=== PATIENT | male | born 1965 | race Caucasian/White ===

== ENCOUNTER 2020-12-19 04:15 | Observation (INO) ==
[2020-12-19] MEDS ORDERED: ONDANSETRON INJ 2 MG/ML 2 ML VIAL ONE ×2 (04:41→10:53)
[2020-12-19] MEDS ORDERED: MoRPHine SULFATE 4 MG/ML 1 ML CARP\\VIAL IV STA (04:43)
[2020-12-19] MEDS ORDERED: SODIUM CHLORIDE 0.9% 1000ML 1,000 ML IV STA (04:43)
[2020-12-19] MEDS ORDERED: KETOROLAC 30 MG/ML VIAL IV ONE (04:43)
--- NOTE | 2020-12-19 04:50 | Emergency Department Note ---
Impression & Plan Colic, ureteral, ERASTO (acute kidney injury), Hyperglycemia due to diabetes mellitus Admit to the [facility] ED Provider Note NAME: GIANFRANCO GARZA AGE: 55 SEX: M ARRIVES VIA: Walk-In INFORMANT: Patient and his ED PROVIDER(S): Lorie Cazares DO CHIEF COMPLAINT: Left flank pain PLAN: Disposition: Admit to the [facility] Condition: Stable MEDICAL DECISION MAKING: This is a 55-year-old male patient who presents to the emergency department with severe left flank pain. The patient underwent lithotripsy 2 days ago. The pain has worsened and now he has uncontrollable nausea, vomiting and sweating. KUB shows evidence of bilateral renal stones with a left-sided ureteral stone that most likely is the culprit of the pain that he is suffering. Patient has evidence of ERASTO on laboratory studies and is significantly hyperglycemic with an elevated BHA. Patient received IV analgesia here in the emergency department and IV fluids. [facility] for [facility]. Triage Nursing notes reviewed and agree with them. Additional history obtained from is at the bedside Prior medical records reviewed Vital Signs: reviewed and remarkable for hypertension Differential diagnosis: Obstructive uropathy; ureteral colic; acute kidney injury; UTI ER treatment provided: IV normal saline IV morphine IV Zofran IV Toradol Diagnostics interpreted by me: Laboratory studies: See below Imaging studies: As per my interpretation KUB: There are still obvious stones in both kidneys. There appears to be stones within the left ureter. HPI: 55/M arrives for evaluation of left flank pain. The patient underwent lithotripsy 2 days ago and has had intermittent pain that has now become more constant and is associated with significant vomiting. ROS: See above HPI for pertinent positives & negatives. A total of 10 systems reviewed and were otherwise negative. PAST MEDICAL HISTORY:See Below PAST SURGICAL HISTORY:See Below FAMILY HISTORY:See Below SOCIAL HISTORY:See Below HOME MEDICATIONS:See list ALLERGIES:See list VITALS:See Below PHYSICAL EXAMINATION: HEENT: Head - normocephalic and atraumatic Pupils are equal, round, and reactive to light. Extraocular eye muscles are intact, and sclera are anic teric. Nose - moist nasal mucosa without discharge. Mouth - moist buccal mucosa. Oropharynx is nonerythematous and there is no tonsillar exudate or edema noted. Neck: Supple; no cervical lymphadenopathy or nuchal rigidity Heart: Regular rate and rhythm. There is a normal S1 and S2 with no murmurs, clicks, or gallops appreciated. Lungs: Clear to auscultation bilaterally with no wheezes, rales, or rhonchi. Abdomen: Soft, completely nontender, nondistended, with good bowel sounds. There are no palpable pulsatile masses or hepatosplenomegaly. There is no guarding, rigidity, or rebound noted. Extremities: No evidence of cyanosis, clubbing, or edema. There are easily palpable peripheral pulses. Skin: Pale, warm and diaphoretic with good turgor and no rashes. ED COURSE: Times/Reassessments: 0435: The patient was evaluated in room A 10. A complete history and physical was performed. Previous electronic medical records were reviewed. An IV lock was initiated and labs were drawn as above. The patient was given 4 mg of IV morphine, 30 mg of IV Toradol, and 4 mg of IV Zofran. He was started on IV normal saline solution. Patient had a KUB performed. Patient remained comfortable after receiving the above IV analgesia. I reviewed the results of the laboratory studies and x-ray with the patient and his . I discussed the case with the [facility] hospitalist and they will evaluate for further management. Lorie Cazares DO Past Med/Surg History Medical History Bilateral kidney stones Cardiac murmur as child CKD (chronic kidney disease) Colon polyps Diabetes mellitus, type 2 GERD (gastroesophageal reflux disease) no longer on meds Hyperlipidemia Intervertebral lumbar disc disorder Malignant neoplasm of left kidney kidney removed > Dec 2019 > [facility] > no chemo MRSA infection hx of > 5 yrs ago > to face Obesity Pancreatic cyst just monitoring Vitamin D deficiency Surgical History H/O discectomy L4-5 S1 H/O hernia repair H/O vasectomy History of colonoscopy History of esophagogastroduodenoscopy (EGD) History of lithotripsy Family History Father Hypertension Stroke Heart disease Diabetes Mother Hypertension Heart disease Diabetes Grandmother (Paternal) Diabetes Social History Smoking Status: Never smoker Tobacco Type: Smokeless Tobacco (Dip or Chew) Second Hand Exposure: No; Hx Alcohol Use: No Hx Substance Use: No Preferred Language: Thai Communication Ability: Effective Pneumatic Drum Sander Required: No Beliefs That Will Affect Care: None marital status: Current Living Situation: Spouse current occupational status: retired Feels Safe at Home: Yes Assistive Devices: Glasses Allergies Allergies Allergy/AdvReac Type Severity Reaction Status Date / Time atorvastatin [From Lipitor] AdvReac Unknown leg Verified 12/17/20 06:29 cramping rosuvastatin [From Crestor] AdvReac Unknown leg Verified 12/17/20 06:29 cramping flu vaccine AdvReac Unknown Vomiting Uncoded 12/17/20 06:29 Home Meds Home Medications Medication Instructions Recorded Confirmed dulaglutide 1.5 mg/0.5 mL 3 mg SUBCUT WK 10/28/20 12/19/20 subcutaneous pen injector (Trulicity) hydrocodone 5 mg-acetaminophen 325 1 tab PO BID PRN 10/28/20 12/19/20 mg tablet metformin 500 mg tablet 500 mg PO PM 12/13/20 12/19/20 dapagliflozin 10 mg tablet 10 mg PO QAM 12/19/20 12/19/20 (Farxiga) ibuprofen 200 mg tablet 400 mg PO Q6H PRN 12/19/20 12/19/20 Results & Data (ED) Vital Signs Vital Signs - 24 hr 12/19/20 04:19 12/19/20 04:59 12/19/20 05:43 Temperature 36.5 C Temperature Source Temporal Artery Scan Pulse Rate 79 92 H Pulse Rate [Finger] 89 Pulse Rhythm [Finger] Pulse Strength [Finger] Respiratory Rate 16 16 Respiratory Effort / Characteristics Non-Labored Spontaneous Non-Labored Respiratory Depth Normal Normal Respiratory Pattern Regular Blood Pressure 161/79 H Blood Pressure [Right Arm] 125/71 Blood Pressure Mean 106 Blood Pressure Mean [Right Arm] 89 Blood Pressure Position Sitting Blood Pressure Position [Right Arm] Lying Pulse Oximetry 97 97 96 Oxygen Delivery Method Room Air Room Air Room Air Sepsis Recent Fever Within 48 Hours No Sepsis New/Unexplained Change in Mental Status N/A Sepsis Action Taken by Nursing No Action Required 12/19/20 06:36 12/19/20 08:00 12/19/20 10:00 Temperature Temperature Source Pulse Rate Pulse Rate [Finger] 71 70 74 Pulse Rhythm [Finger] Regular Regular Pulse Strength [Finger] Normal Normal Respiratory Rate 16 16 16 Respiratory Effort / Characteristics Non-Labored Non-Labored Respiratory Depth Normal Normal Respiratory Pattern Regular Regular Blood Pressure Blood Pressure [Right Arm] 120/71 120/71 105/51 L Blood Pressure Mean Blood Pressure Mean [Right Arm] 87 87 69 Blood Pressure Position Blood Pressure Position [Right Arm] Lying Lying Lying Pulse Oximetry 94 96 98 Oxygen Delivery Method Room Air Room Air Room Air Sepsis Recent Fever Within 48 Hours Sepsis New/Unexplained Change in Mental Status Sepsis Action Taken by Nursing 12/19/20 10:19 Temperature 36.2 C L Temperature Source Axillary Pulse Rate Pulse Rate [Finger] 70 Pulse Rhythm [Finger] Pulse Strength [Finger] Respiratory Rate 14 Respiratory Effort / Characteristics Respiratory Depth Normal Respiratory Pattern Regular Blood Pressure Blood Pressure [Right Arm] 99/64 L Blood Pressure Mean Blood Pressure Mean [Right Arm] 75 Blood Pressure Position Blood Pressure Position [Right Arm] Pulse Oximetry 96 Oxygen Delivery Method Room Air Sepsis Recent Fever Within 48 Hours Sepsis New/Unexplained Change in Mental Status Sepsis Action Taken by Nursing Laboratory Data Result diagrams: 12/19/20 04:43 12/19/20 13:51 Lab Results 12/19/20 12/19/20 12/19/20 Range/Units 04:43 04:43 05:45 WBC 15.01 H (4.8-10.8) K/uL RBC 5.69 (4.7-6.1) M/uL Hgb 16.4 (14.0-18.0) g/dL Hct 46.8 (42-52) % MCV 82.2 (80-100) fL MCH 28.8 (25-34) pg MCHC 35.0 (32-36) g/dL RDW Std Deviation 39.2 (36.4-46.3) fL RDW Coeff of Turner 13.1 (11.5-14.5) % Plt Count 248 (130-400) K/uL MPV 10.0 (7.4-10.4) fL Immature Gran % (Auto) 0.3 % Neut % (Auto) 83.7 % Lymph % (Auto) 9.6 % [place] % (Auto) 6.0 % Eos % (Auto) 0.3 % Baso % (Auto) 0.1 % Neut # (Auto) 12.57 H (1.4-6.5) K/uL Lymph # (Auto) 1.44 (1.2-3.4) K/uL [place] # (Auto) 0.90 H (0.11-0.59) K/uL Eos # (Auto) 0.04 (0-0.5) K/uL Baso # (Auto) 0.02 (0-0.2) K/uL Immature Gran # (Auto) 0.04 H (0.00-0.02) K/uL Sodium 134 L (136-145) mmol/L Potassium 3.5 (3.5-5.1) mmol/L Chloride 102 (98-107) mmol/L Carbon Dioxide 24 (21-32) mmol/L Anion Gap 8.0 (3-11) BUN 18 (7-18) mg/dl Creatinine 1.82 H (0.6-1.4) mg/dl Est Cr Clr Drug Dosing Not Reportable Est GFR ( Amer) 47.1 ml/min Est GFR (Non-Af Amer) 40.6 ml/min BUN/Creatinine Ratio 9.9 L (10-20) Glucose 356 H* (70-99) mg/dl POC Glucose (70-99) mg/dl Calcium 9.1 (8.5-10.1) mg/dl Total Bilirubin 0.8 (0.2-1) mg/dl AST 10 L (15-37) U/L ALT 33 (12-78) U/L Alkaline Phosphatase 119 H (45-117) U/L Total Protein 8.0 (6.4-8.2) gm/dl Albumin 4.0 (3.4-5.0) gm/dl Globulin 4.0 (2.5-4.0) gm/dl Albumin/Globulin Ratio 1.0 (0.9-2) Lipase 169 (73-393) U/L Beta-Hydroxybutyric Acd 2.83 H (0.2-2.81) mg/dl Urine Color Yellow Urine Appearance Cloudy A (Clear) Urine pH 5.0 (4.5-7.5) Ur Specific [place] 1.040 H (1.000-1.030) Urine Protein Trace H (Negative) Urine Glucose (UA) 3+ H (Negative) Urine Ketones 1+ H (Negative) Urine Blood 3+ H (Negative) Urine Nitrite Negative (Negative) Urine Bilirubin Negative (Negative) Urine Urobilinogen Negative (Negative) Ur Leukocyte Esterase Negative (Negative) Urine WBC (Auto) 1-5 (0-5) /hpf Urine RBC (Auto) >30 H (0-4) /hpf U Hyaline Cast (Auto) 0 (0-5) /lpf U Epithel Cells (Auto) 5-10 H (0-5) /lpf Urine Bacteria (Auto) Negative (Negative) Urine Yeast Not Reportable 12/19/20 Range/Units 08:16 WBC (4.8-10.8) K/uL RBC (4.7-6.1) M/uL Hgb (14.0-18.0) g/dL Hct (42-52) % MCV (80-100) fL MCH (25-34) pg MCHC (32-36) g/dL RDW Std Deviation (36.4-46.3) fL RDW Coeff of Turner (11.5-14.5) % Plt Count (130-400) K/uL MPV (7.4-10.4) fL Immature Gran % (Auto) % Neut % (Auto) % Lymph % (Auto) % [place] % (Auto) % Eos % (Auto) % Baso % (Auto) % Neut # (Auto) (1.4-6.5) K/uL Lymph # (Auto) (1.2-3.4) K/uL [place] # (Auto) (0.11-0.59) K/uL Eos # (Auto) (0-0.5) K/uL Baso # (Auto) (0-0.2) K/uL Immature Gran # (Auto) (0.00-0.02) K/uL Sodium (136-145) mmol/L Potassium (3.5-5.1) mmol/L Chloride (98-107) mmol/L Carbon Dioxide (21-32) mmol/L Anion Gap (3-11) BUN (7-18) mg/dl Creatinine (0.6-1.4) mg/dl Est Cr Clr Drug Dosing Est GFR ( Amer) ml/min Est GFR (Non-Af Amer) ml/min BUN/Creatinine Ratio (10-20) Glucose (70-99) mg/dl POC Glucose 192 H (70-99) mg/dl Calcium (8.5-10.1) mg/dl Total Bilirubin (0.2-1) mg/dl AST (15-37) U/L ALT (12-78) U/L Alkaline Phosphatase (45-117) U/L Total Protein (6.4-8.2) gm/dl Albumin (3.4-5.0) gm/dl Globulin (2.5-4.0) gm/dl Albumin/Globulin Ratio (0.9-2) Lipase (73-393) U/L Beta-Hydroxybutyric Acd (0.2-2.81) mg/dl Urine Color Urine Appearance (Clear) Urine pH (4.5-7.5) Ur Specific [place] (1.000-1.030) Urine Protein (Negative) Urine Glucose (UA) (Negative) Urine Ketones (Negative) Urine Blood (Negative) Urine Nitrite (Negative) Urine Bilirubin (Negative) Urine Urobilinogen (Negative) Ur Leukocyte Esterase (Negative) Urine WBC (Auto) (0-5) /hpf Urine RBC (Auto) (0-4) /hpf U Hyaline Cast (Auto) (0-5) /lpf U Epithel Cells (Auto) (0-5) /lpf Urine Bacteria (Auto) (Negative) Urine Yeast Administered Medications Enoxaparin Sodium (Enoxaparin Inj 40 Mg/0.4 Ml Syr) 40 mg SQ Q24H CHANDNI Stop: 01/18/21 12:59 Last Admin: 12/19/20 13:35 Dose: Not Given Documented by: [id number] Ciprofloxacin (Cipro / D5w) 400 mg in 200 mls @ 100 mls/hr IV Q12H CHANDNI; Protocol Stop: 12/29/20 08:40 Last Infusion: 12/19/20 16:09 Dose: 0 mls/hr Documented by: [id number] Admin: 12/19/20 13:54 Dose: 100 mls/hr Documented by: [id number] Insulin Aspart (Insulin Aspart 100 Units/Ml 3 Ml Pen) 0 units SC ACHS CHANDNI Stop: 01/18/21 16:29 Last Admin: 12/19/20 21:13 Dose: 8 units Documented by: [id number] Cosigned by: [id number] Admin: 12/19/20 17:18 Dose: 9 units Documented by: [id number] Cosigned by: [id number] Insulin Glargine (Insulin Glargine Solostar 100 Units/Ml 3 Ml Pen) 10 units SC BID CHANDNI Stop: 01/18/21 20:59 Last Admin: 12/19/20 21:10 Dose: 10 units Documented by: [id number] Cosigned by: [id number] Tamsulosin HCl (Tamsulosin Hcl 0.4 Mg Cap) 0.4 mg PO HS CHANDNI Stop: 01/18/21 20:59 Last Admin: 12/19/20 21:09 Dose: 0.4 mg Documented by: [id number] Discontinued Medications Diatrizoate Meglumine (Diatrizoate Meglumine 30% 100ml Vial) 100 ml INSTIL ONCE ONE Stop: 12/19/20 11:48 Last Admin: 12/19/20 11:48 Dose: 20 ml Documented by: [id number] Sodium Chloride (Nss 1000ml) 1,000 mls @ 999 mls/hr IV .Q1H1M STA Stop: 12/19/20 05:43 Last Infusion: 12/19/20 05:47 Dose: 0 mls/hr Documented by: [id number] Admin: 12/19/20 04:52 Dose: 999 mls/hr Documented by: [id number] Sodium Chloride (Nss) 500 mls @ 125 mls/hr IV .Q4H CHANDNI Stop: 01/18/21 06:59 Last Infusion: 12/19/20 16:09 Dose: 0 mls/hr Documented by: [id number] Admin: 12/19/20 07:21 Dose: 125 mls/hr Documented by: [id number] Sodium Chloride (Nss 1000ml) 1,000 mls @ 500 mls/hr IV .Q2H CHANDNI Stop: 01/18/21 08:40 Last Admin: 12/19/20 16:10 Dose: Not Given Documented by: [id number] Admin: 12/19/20 13:38 Dose: Not Given Documented by: [id number] Admin: 12/19/20 13:37 Dose: Not Given Documented by: [id number] Admin: 12/19/20 13:31 Dose: Not Given Documented by: [id number] Cefazolin Sodium (Ancef 2000mg) 2,000 mg in 15 mls @ 3.75 mls/min IV ONCE ONE Stop: 12/19/20 11:44 Last Admin: 12/19/20 11:41 Dose: 3.75 mls/min Documented by: [id number] Insulin Glargine (Insulin Glargine Solostar 100 Units/Ml 3 Ml Pen) 10 units SC DAILY CHANDNI Stop: 01/18/21 08:59 Last Admin: 12/19/20 13:30 Dose: Not Given Documented by: [id number] Insulin Human Regular (Novolin-R Insulin Per Unit Charge) 10 units IV NOW STA Stop: 12/19/20 07:01 Last Admin: 12/19/20 07:21 Dose: 10 units Documented by: [id number] Cosigned by: [id number] Insulin Human Regular (Insulin Human Regular) 0 units SC Q6 CHANDNI Stop: 01/18/21 11:29 Last Admin: 12/19/20 13:31 Dose: Not Given Documented by: [id number] Cosigned by: [id number] Ketorolac Tromethamine (Ketorolac 30 Mg/Ml Vial) 30 mg IV NOW ONE Stop: 12/19/20 04:44 Last Admin: 12/19/20 04:48 Dose: 30 mg Documented by: [id number] Morphine Sulfate (Morphine Sulfate 4 Mg/Ml 1 Ml Carp\Vial) 4 mg IV NOW STA Stop: 12/19/20 04:44 Last Admin: 12/19/20 04:48 Dose: 4 mg Documented by: [id number] Ondansetron HCl (Ondansetron Inj 2 Mg/Ml 2 Ml Vial) Confirm Administered Dose 4 mg .ROUTE .STK-MED ONE Stop: 12/19/20 04:42 Last Admin: 12/19/20 04:45 Dose: 4 mg Documented by: [id number] Tamsulosin HCl (Tamsulosin Hcl 0.4 Mg Cap) 0.4 mg PO NOW ONE Stop: 12/19/20 08:42 Last Admin: 12/19/20 17:06 Dose: 0.4 mg Documented by: [id number] Imaging Data Radiologist's Impression: Abdomen/Pelvis CT 12/19/20 08:38 CT abd pelvis wo con CLINICAL HISTORY: ? hydro/pyelo? TECHNIQUE: Helical axial images of the abdomen and pelvis were obtained. Automated dose lowering techniques and/or adjustment according to patient size were utilized for this exam. This exam was performed without intravenous contrast. COMPARISON: Comparison is made to CT abdomen and pelvis 12/08/2020 FINDINGS: Lower chest: No acute abnormality Liver: Unremarkable. No focal lesions are seen. Gallbladder and biliary tree: No calcified gallstones. Normal caliber wall. No intra- or extrahepatic biliary ductal dilation. Pancreas: Fatty replacement of the pancreas is seen. Spleen: Unremarkable. Adrenals: Unremarkable. Kidneys and ureters: Left hydronephrosis and hydroureter is seen. There is a 4 mm stone in the left proximal ureter. Nonobstructive stones are seen bilaterally. Bladder: Unremarkable. Layering stones are noted within the bladder. Reproductive organs: Prostatic calcifications are seen which may represent prior hemorrhage or granulomatous disease. Bowel: Unremarkable appearance of the bowel. The appendix is normal. Compared to the prior study, the gastric wall is not thickened, no evidence of gastritis. Lymph nodes Retroperitoneal: Unremarkable. Mesenteric: Unremarkable. Pelvic: Unremarkable. Peritoneum: Normal Vessels: Unremarkable. Abdominal wall: A fat-containing umbilical hernia is seen. A right fat- containing inguinal hernia is seen. Bones: Degenerative changes in the visualized spine. IMPRESSION: Obstructive 4 mm stone in the proximal left ureter with resulting hydronephrosis. Otherwise no acute abnormalities. ACT 112: Negative or not required by law. Electronically signed by: Johnnie Rock M.D. 12/19/2020 10:34 AM Discharge Plan Visit Data Chief Complaint: Kidney Stone Stated Complaint: PASSING KIDNEY STONE ED Provider: Lorie Cazares Discharge Problem: Colic, ureteral, ERASTO (acute kidney injury), Hyperglycemia due to diabetes mellitus Patient Disposition: Admitted As Inpatient Discharge Instructions Interventions: ED Discharge Assessment Last Done: 12/19/20 10:10
[2020-12-19 04:57] LABS: Basophils # (auto) 0.02 K/uL (0-0.2); Basophils % (auto) 0.1 %; Eosinophils # (auto) 0.04 K/uL (0-0.5); Eosinophils % (auto) 0.3 %; Hematocrit (blood only) 46.8 % (42-52); Hemoglobin 16.4 g/dL (14.0-18.0); Immature Granulocytes # (auto) 0.04 K/uL (0.00-0.02); Immature Granulocytes % (auto) 0.3 %; Lymphocytes # (auto) 1.44 K/uL (1.2-3.4); Lymphocytes % (auto) 9.6 %; Mean Corpuscular Hemoglobin 28.8 pg (25-34); Mean Corpuscular Volume 82.2 fL (80-100); Neutrophils # (auto) 12.57 K/uL (1.4-6.5); Neutrophils % (auto) 83.7 %; Platelet Count 248 K/uL (130-400); RDW Coefficient of Variation 13.1 % (11.5-14.5); RDW Standard Deviation 39.2 fL (36.4-46.3); Red Blood Count 5.69 M/uL (4.7-6.1); White Blood Count 15.01 K/uL (4.8-10.8)
[2020-12-19 05:56] LABS: Alanine Aminotransferase 33 U/L (12-78); Alkaline Phosphatase 119 U/L (45-117); Aspartate Aminotransferase 10 U/L (15-37); BUN Creatinine Ratio 9.9 (10-20); Bilirubin,Total 0.8 mg/dl (0.2-1); Blood Urea Nitrogen 18 mg/dl (7-18); Calcium 9.1 mg/dl (8.5-10.1); Carbon Dioxide 24 mmol/L (21-32); Chloride 102 mmol/L (98-107); Est GFR (African American) 47.1 ml/min; Est GFR (Non-African American) 40.6 ml/min; Glucose 356 mg/dl (70-99); Lipase 169 U/L (73-393); Potassium 3.5 mmol/L (3.5-5.1); Sodium 134 mmol/L (136-145)
[2020-12-19 06:18] LABS: Beta-Hydroxybutyrate 2.83 mg/dl (0.2-2.81)
[2020-12-19 06:45] LABS: Appearance Urine Cloudy (Clear); Bacteria Urine Automated Negative (Negative); Bilirubin Urine Negative (Negative); Blood Urine 3+ (Negative); Cast Urine Automated 0 /lpf (0-5); Color Urine Yellow; Glucose Urine UA 3+ (Negative); Ketones Urine 1+ (Negative); Leukocyte Esterase Urine Negative (Negative); Nitrite Urine Negative (Negative); Protein Urine Trace (Negative); Urobilinogen Urine Negative (Negative)
[2020-12-19] MEDS ORDERED: SODIUM CHLORIDE 0.9% 500 ML IV SCH (07:00)
[2020-12-19] MEDS ORDERED: NovoLIN-R INSULIN PER UNIT CHARGE IV STA (07:00)
[2020-12-19 07:04] LABS: RBC Urine Automated >30 /hpf (0-4)
[2020-12-19] MEDS ORDERED: TAMSULOSIN HCL 0.4 MG CAP PO ONE (08:41)
[2020-12-19] MEDS ORDERED: HYDROmorphone INJ 1 MG/ML SYRINGE IV PRN (08:41)
[2020-12-19] MEDS ORDERED: ONDANSETRON INJ 2 MG/ML 2 ML VIAL IV PRN ×3 (08:41→12:16)
[2020-12-19] MEDS ORDERED: GLUCOSE 40% GEL 15 GM TUBE PO PRN (08:41)
[2020-12-19] MEDS ORDERED: GLUCAGON FOR INJ 1 MG VIAL SQ PRN (08:41)
[2020-12-19] MEDS ORDERED: CARBOHYDRATES FOR HYPOGLYCEMIA PO PRN (08:41)
[2020-12-19] MEDS ORDERED: GLUCOSE 10 TABS/TUBE PO PRN (08:41)
--- NOTE | 2020-12-19 08:53 | XRay Report ---
XR KUB/Abdomen 1 view CLINICAL HISTORY: eval for ureteral stone TECHNIQUE: 1 view of the abdomen was obtained. Comparison: None available at the time of this dictation. FINDINGS: Multiple radiodensities are seen projecting over the renal silhouettes. Stable calcification of the p chelsey favored to represent phleboliths. No definite stones along the expected path of the ureters. Th e osseous structures are grossly unremarkable. The bowel gas pattern is nonobstructive. A moderate am ount of stool is noted within the large bowel. IMPRESSION: Redemonstration of multiple bilateral renal stones without evidence of stones in the ureter. ACT 112: Negative or not required by law. Electronically signed by: Johnnie Rock M.D. 12/19/2020 8:51 AM
--- NOTE | 2020-12-19 08:58 | History & Physical Report ---
Date of Service December 19, 2020 Assessment & Plan (1) Hyperglycemia: Plan: - flirting with DKA - FBS 356 upon arrival to ED - AG closed: 9.0 - Serum bicarb normal: 24 - Betahydroxybutyric acid every so slightly elevated: 2.83 (normal <2.81) - 10U IV insulin and IVF given in ED - FU BS 192 - start Lantus (but at only 10U given NPO status)-- uptitrate when initiating oral intake - monitor BS q6h and correct with Regular given NPO status). Transition to log with initiation of oral intake - check A1C and panculture - FU BMP at 1400 (2) Nephrolithiasis: Plan: - KUB with obvious stone in what appears to be the left ureter - ? hydronephrosis/obstruction--> check CT as highly suspicious - keep NPO for now until CT results available. ? need for stent - consult urology--> appreciate recommendations (briefly D/W Dr. Liz-- with whom pt is established) - flomax - strain urine - dilaudid for pain - zofran for nausea - APAP for any fevers (3) Leukocytosis: Plan: - ? infectious vs reactive from leukocytosis - start empiric abx therapy (Cipro) - panculture (UC/BC). UA questionable but not overly impressive (nitrite and tino kocyte esterase negative ) - CT ordered--> ?pyelo vs obstructing stone vs simple passing of stone (4) ERASTO (acute kidney injury): Plan: - Ct ordered. ? obstructing stone - aggressive IV hydration with FU labs to trend (5) Type 2 diabetes mellitus: Plan: - see above - hold adilia martin and metformin while in house. (6) Malignant neoplasm of left kidney: Plan: - s/p partial resection (7) Hyperlipidemia: Plan: - diet controlled Plan: - lovenox for DVT prophl - pt full code - plan of care D/W Dr. Liz (urology) and to be D/W attending (Dr. Carcamo) History of Present Illness Chief Complaint: Left flank pain x 2 days Primary Care Provider: Jose Barba is a 55 y/o WM with a PMHx of NIDDM, recurrent nephrolithiasis, and RCCA s/p partial kidney resection who presented with Left flank pain x 2-3 days. Underwent left sided ESWL on 12/17 (Dr. Liz) for 15mm stone. Tolerated the procedure without issues. Having intermittent left sided flank pain since. Alleviates with visible passing of stones. Last evening, developed severe pain that was unrelenting upon awakening this am with associated chills, nausea and vomiting. He is having reid hematuria and dysuria. In ED, found to be afebrile and HD stable. Noted to have a FBS of 356, mild ERASTO of 1.8 (1.0 at baseline), and leukocytosis of 15K with no significant shift on differential. KUB down showing obvious stone in what appears to be the left ureter. His AG is closed (9.0) and his serum bicarb is normal (24); however, his beta-hydroxybutyric acid is ever so slightly elevated at 2.83 (ref range of 2.81). Was treated with IVF, Morphine, Zofran, and 10U IV insulin. Pain currently improved but not resolved. FU BS is 192. Will be hospitalized for further evaluation and care. Allergies Allergy/AdvReac Type Severity Reaction Status Date / Time atorvastatin [From Lipitor] AdvReac Unknown leg Verified 12/17/20 06:29 cramping rosuvastatin [From Crestor] AdvReac Unknown leg Verified 12/17/20 06:29 cramping flu vaccine AdvReac Unknown Vomiting Uncoded 12/17/20 06:29 Home Medications Medication Instructions Recorded Confirmed Type dulaglutide 1.5 mg/0.5 mL 3 mg SUBCUT WK 10/28/20 12/19/20 History subcutaneous pen injector (Trulicity) hydrocodone 5 mg-acetaminophen 325 1 tab PO BID PRN 10/28/20 12/19/20 History mg tablet metformin 500 mg tablet 500 mg PO PM 12/13/20 12/19/20 History dapagliflozin 10 mg tablet 10 mg PO QAM 12/19/20 12/19/20 History (Farxiga) ibuprofen 200 mg tablet 400 mg PO Q6H PRN 12/19/20 12/19/20 History Past Med/Surg History Medical History Bilateral kidney stones Cardiac murmur as child CKD (chronic kidney disease) Colon polyps Diabetes mellitus, type 2 GERD (gastroesophageal reflux disease) no longer on meds Hyperlipidemia Intervertebral lumbar disc disorder Malignant neoplasm of left kidney kidney removed > Dec 2019 > [facility] > no chemo MRSA infection hx of > 5 yrs ago > to face Obesity Pancreatic cyst just monitoring Vitamin D deficiency Surgical History H/O discectomy L4-5 S1 H/O hernia repair H/O vasectomy History of colonoscopy History of esophagogastroduodenoscopy (EGD) History of lithotripsy Family History Father Hypertension Stroke Heart disease Diabetes Mother Hypertension Heart disease Diabetes Grandmother (Paternal) Diabetes Social History Smoking Status: Never smoker Tobacco Type: Smokeless Tobacco (Dip or Chew) Second Hand Exposure: No; Hx Alcohol Use: No Hx Substance Use: No Preferred Language: Nepali Communication Ability: Effective Loader Operator Required: No Beliefs That Will Affect Care: None marital status: Current Living Situation: Spouse current occupational status: retired Feels Safe at Home: Yes Assistive Devices: Glasses Review of Systems Review of Systems: All systems reviewed and are unremarkable except as noted in HPI and below Denies chills, N/V, dysuria, and hematuria, left sided flank pain. Denies fevers, headache, nasal congestion, sore throat, cough, chest pain, shortness of breath, palpitations, orthopnea, PND, abdominal pain, diarrhea, constipation, dysuria, hematuria, frequency, back pain, joint pain or swelling, easy bruising or bleeding, skin lesions or rashes. Physical Exam Physical Exam: General: Resting comfortably in her hospital bed. mildly uncomfortable with any movement HEENT: Head is AT/NC buccal mucosa is moist and pink Neck: No JVD. Negative hepatojugular reflex Cardiac: RRR without M/G/R CTA without W/R/R Abdomen: Normoactive X4. Soft and nontender in all quadrants. Left sided CVA tenderness Extremities: No peripheral clubbing cyanosis or edema Neuro: A&O X4 cranial nerves II through XII are grossly intact no focal neuro deficits Skin: No obvious skin lesions or rashes Psych: Appropriate affect pleasant and cooperative Results & Data Results & Data ([facility]) Vital Signs (Past 12 Hours) Vital Signs Temp Pulse Pulse Resp BP BP Pulse Ox 12/19/20 08:00 70 16 120/71 96 12/19/20 06:36 71 16 120/71 94 12/19/20 05:43 89 16 125/71 96 12/19/20 04:59 92 H 97 12/19/20 04:19 36.5 C 79 16 161/79 H 97 Code Status & VTE Plan VTE Prophylaxis Plan VTE Prophylaxis will be ordered: Yes Supervising Physician Co-Signing Physician Notes Attending note: patient seen and examined with Cathi MARIEE. I agree with her assessment and plan, history, ROS, examination. I personally reviewed the labs and imaging. appreciate urology input, reviewed cystoscopy report patient doing much better after cystoscopy with stone retrieval and ureteral stent placement - Hyperglycemia, borderline DKA: continue IV fluids, insulin, sugar down to 140 already - Ureteral stone with UTI: continue Cipro, s/p cystoscopy with ureteral stent check BMP, CBC in AM, follow up on urine culture can likely be discharged tomorrow if okay with urology PG Care Time/CCT Total # of Minutes Spent Total Time Spent with Patient: Total time spent is greater than 50% in coordination of care (as documented) at patient's floor/unit and/or counseling patient: [place] [address] Initial Inpt Care Lvl 3 Patient Type New Diagnoses Hyperglycemia R73.9 Nephrolithiasis N20.0 Leukocytosis D72.829 ERASTO (acute kidney injury) N17.9 Type 2 diabetes mellitus E11.9 Malignant neoplasm of left kidney C64.2 Hyperlipidemia E78.5
[2020-12-19] MEDS ORDERED: INSULIN GLARGINE SOLOSTAR 100 UNITS/ML 3 ML PEN SC SCH (09:00)
[2020-12-19] MEDS ORDERED: ACETAMINOPHEN 325 MG TAB PO PRN (10:29)
[2020-12-19] MEDS ORDERED: DEXTROSE 50% 50 ML SYRINGE IV PRN (10:29)
--- NOTE | 2020-12-19 10:29 | Urology Consultation ---
Date of Consultation December 19, 2020 Assessment & Plan (1) Nephrolithiasis: We reviewed the results of his CT scan. The 6 x 7 mm stone has potential to pass spontaneously, but I would only give it about 30% to 40% chance. Since his pain and nausea have been uncontrolled outside the hospital, we discussed that we could place a ureteral stent to allow decompression of his left kidney. We discussed that this would not address the residual stones within his kidney, which would likely require further treatment. We discussed the risk and benefits of this procedure, including bleeding, infection, injury to urinary tract, inability to place the stent, stent pain. He expressed understanding would like to proceed with ureteral stent placement. We will try to get this done today. (2) ERASTO (acute kidney injury): I suspect his acute kidney injury is related to dehydration from recent nausea and vomiting. I have low suspicion for an obstructive component, as his right renal unit is unobstructed. I think this will improve with hydration. We will proceed to the OR for cystoscopy, left retrograde pyelogram, left ureteral stent placement Recommend supportive care with IV fluids Pain control with Tylenol, NSAIDs Zofran for nausea Reasonable to obtain urine and blood cultures, although I think leukocytosis is likely from pain. If cultures are negative would recommend stopping antibiotics. History of Present Illness Reason for Consultation: left ureteral stone, pain and nausea Attending Physician: Johnnie Carcamo DO History of Present Illness This is a 55-year-old male with a history of nephrolithiasis. On 12/17/2020, he underwent ESWL for a large left UPJ stone. There appeared to be good fragmentation of the stone on intraoperative imaging, and he was discharged home that day. He reports that since then, he has had some protracted episodes of left-sided flank pain, associated with significant nausea and vomiting. He initially had been coming to the hospital, but he passed some stone fragments and felt better. He was then making his way back home, but the flank pain returned, prompting him to come to the emergency department. Here he has been treated with morphine, ketorolac and Zofran, with improvement in his pain and nausea, but there is still some pain present. Lab work was performed in the ED, notable for WBC 15.01, creatinine 1.82, glucose of 356. Urinalysis showed blood and glucose, but was negative for nitrites and leukocyte esterase. CT scan was performed, demonstrating a 6 x 7 mm stone in the proximal left ureter, as well as residual unchanged stones in the left kidney, and stones in the right kidney. Allergies Allergy/AdvReac Type Severity Reaction Status Date / Time atorvastatin [From Lipitor] AdvReac Unknown leg Verified 12/17/20 06:29 cramping rosuvastatin [From Crestor] AdvReac Unknown leg Verified 12/17/20 06:29 cramping flu vaccine AdvReac Unknown Vomiting Uncoded 12/17/20 06:29 Home Medications Medication Instructions Recorded Confirmed Type dulaglutide 1.5 mg/0.5 mL 3 mg SUBCUT WK 10/28/20 12/19/20 History subcutaneous pen injector (Trulicity) hydrocodone 5 mg-acetaminophen 325 1 tab PO BID PRN 10/28/20 12/19/20 History mg tablet metformin 500 mg tablet 500 mg PO PM 12/13/20 12/19/20 History dapagliflozin 10 mg tablet 10 mg PO QAM 12/19/20 12/19/20 History (Farxiga) ibuprofen 200 mg tablet 400 mg PO Q6H PRN 12/19/20 12/19/20 History Patient History Medical History Bilateral kidney stones Cardiac murmur as child CKD (chronic kidney disease) Colon polyps Diabetes mellitus, type 2 GERD (gastroesophageal reflux disease) no longer on meds Hyperlipidemia Intervertebral lumbar disc disorder Malignant neoplasm of left kidney kidney removed > Dec 2019 > [facility] > no chemo MRSA infection hx of > 5 yrs ago > to face Obesity Pancreatic cyst just monitoring Vitamin D deficiency Surgical History H/O discectomy L4-5 S1 H/O hernia repair H/O vasectomy History of colonoscopy History of esophagogastroduodenoscopy (EGD) History of lithotripsy Family History Father Hypertension Stroke Heart disease Diabetes Mother Hypertension Heart disease Diabetes Grandmother (Paternal) Diabetes Social History Smoking Status: Never smoker Tobacco Type: Smokeless Tobacco (Dip or Chew) Second Hand Exposure: No; Hx Alcohol Use: No Hx Substance Use: No Preferred Language: Faroese Communication Ability: Effective Radar Mechanic Required: No Beliefs That Will Affect Care: None marital status: Current Living Situation: Spouse current occupational status: retired Feels Safe at Home: Yes Assistive Devices: Glasses Review of Systems Constitutional: no fever and no chills Eyes: no worsening vision Ear, Nose, Mouth, Throat: no tinnitus Respiratory: no cough and no dyspnea Cardiovascular: no chest pain and no palpitations Gastrointestinal: + abdominal pain, + nausea and + vomiting Genitourinary: + as per Subjective / HPI (Significant flank pain) Musculoskeletal: no joint pain and no myalgia Integumentary: no rash and no lesions Neurologic: no localized weakness, no numbness and no paresthesia Endocrine: + fatigue Hematologic / Lymphatic: no easy bleeding and no easy bruising Physical Exam Constitutional: No acute distress, but appears uncomfortable Eyes: + anicteric sclerae; pupils not irregular Respiratory: normal respiratory effort; no respiratory distress, does not use accessory muscles and no cough Cardiovascular: Rate/Rhythm: regular rate and regular rhythm Gastrointestinal (Abdomen): Inspection/Auscultation: abdomen normal to inspection; abdomen not distended Percussion/Palpation: abdomen soft; abdomen nontender Musculoskeletal: Extremities: extremities normal to inspection Skin: normal turgor; no rashes and no lesions Neurologic: moves all extremities and awake Psychiatric: Orientation: alert and oriented x 3 Results & Data ([facility]) Vital Signs (Past 12 Hours) Vital Signs Temp Pulse Pulse Resp BP BP Pulse Ox 12/19/20 10:00 74 16 105/51 L 98 12/19/20 08:00 70 16 120/71 96 12/19/20 06:36 71 16 120/71 94 12/19/20 05:43 89 16 125/71 96 12/19/20 04:59 92 H 97 12/19/20 04:19 36.5 C 79 16 161/79 H 97 Laboratory Results CBC with mild leukocytosis (15.01), normal hemoglobin, normal platelets BMP with mild hyponatremia (134), elevated creatinine (1.82), hyperglycemia (356) Urinalysis: Significant RBCs, negative leukocyte esterase and nitrites, no bacteria appreciated. PG Care Time/CCT Total # of Minutes Spent Total Time Spent with Patient: Total time spent is greater than 50% in coordination of care (as documented) at patient's floor/unit and/or counseling patient: Coding Level of Care Code 65452 Inpt Consult Level 4 Diagnoses Nephrolithiasis N20.0 ERASTO (acute kidney injury) N17.9
--- NOTE | 2020-12-19 10:35 | CT Scan Report ---
CT abd pelvis wo con CLINICAL HISTORY: ? hydro/pyelo? TECHNIQUE: Helical axial images of the abdomen and pelvis were obtained. Automated dose lowering tech niques and/or adjustment according to patient size were utilized for this exam. This exam was perfor med without intravenous contrast. COMPARISON: Comparison is made to CT abdomen and pelvis 12/08/2020 FINDINGS: Lower chest: No acute abnormality Liver: Unremarkable. No focal lesions are seen. Gallbladder and biliary tree: No calcified gallstones. Normal caliber wall. No intra- or extrahepatic biliary ductal dilation. Pancreas: Fatty replacement of the pancreas is seen. Spleen: Unremarkable. Adrenals: Unremarkable. Kidneys and ureters: Left hydronephrosis and hydroureter is seen. There is a 4 mm stone in the left p roximal ureter. Nonobstructive stones are seen bilaterally. Bladder: Unremarkable. Layering stones are noted within the bladder. Reproductive organs: Prostatic calcifications are seen which may represent prior hemorrhage or granul omatous disease. Bowel: Unremarkable appearance of the bowel. The appendix is normal. Compared to the prior study, the gastric wall is not thickened, no evidence of gastritis. Lymph nodes Retroperitoneal: Unremarkable. Mesenteric: Unremarkable. Pelvic: Unremarkable. Peritoneum: Normal Vessels: Unremarkable. Abdominal wall: A fat-containing umbilical hernia is seen. A right fat-containing inguinal hernia is seen. Bones: Degenerative changes in the visualized spine. IMPRESSION: Obstructive 4 mm stone in the proximal left ureter with resulting hydronephrosis. Otherwise no acute abnormalities. ACT 112: Negative or not required by law. Electronically signed by: Johnnie Rock M.D. 12/19/2020 10:34 AM
[2020-12-19] MEDS ORDERED: PATIENT'S HEIGHT NEEDED SCH (10:45)
[2020-12-19] MEDS ORDERED: DEXAMETHASONE SOD INJ 4 MG/ML VIAL ONE (10:53)
[2020-12-19] MEDS ORDERED: PROPOFOL IV EMULSION 10 MG/ML 20 ML VIAL IV ONE (10:53)
[2020-12-19] MEDS ORDERED: LIDOCAINE 2% 2 ML VIAL/AMP(20MG/ML) INFIL ONE (10:53)
[2020-12-19] MEDS ORDERED: fentaNYL citrate 100 MCG/2 ML VIAL ONE (10:54)
[2020-12-19] MEDS ORDERED: MIDAZOLAM HCL 1 MG/ML 2ML VIAL ONE (10:54)
[2020-12-19] MEDS ORDERED: ATROPINE SULFATE 0.1 MG/ML 10ML SYR IV PRN ×2 (11:29→12:16)
[2020-12-19] MEDS ORDERED: FLUMAZENIL 0.1 MG/1 ML 10 ML VIAL IV PRN ×2 (11:29→12:16)
[2020-12-19] MEDS ORDERED: PROMETHAZINE HCL 12.5 MG in SODIUM CHLORIDE 0.9% 50 ML IV PRN ×2 (11:29→12:16)
[2020-12-19] MEDS ORDERED: ePHEDrine sulfate 50 MG/ML AMP IV PRN ×2 (11:29→12:16)
[2020-12-19] MEDS ORDERED: fentaNYL citrate 100 MCG/2 ML VIAL IV PRN ×2 (11:29→12:16)
[2020-12-19] MEDS ORDERED: LABETALOL HCL IV 5 MG/ML 20ML IV PRN ×2 (11:29→12:16)
[2020-12-19] MEDS ORDERED: NALOXONE HCL 0.4 MG/1 ML VIAL/CARP IV PRN ×2 (11:29→12:16)
--- NOTE | 2020-12-19 11:29 | Anesthesiology Consultation ---
Date of Service December 19, 2020 Assessment & Plan Chart Review Chart Review: Acceptable Risk for Surgery and Patient NOT seen in Pre Admission Testing Consults Requested none ASA [id number] Proposed Anesthesia Anesthesia Type: General Risk / Benefits Reviewed With: PT / POA / Parent / Guardian, Accepts Plan and Informed Consent Obtained Additional Comments: covid test neg. History Surgery Operation Date: 12/19/20 12:00 Proposed Procedures p Ureteral Stent - Phoenix Liz MD Height/Weight Height: 6 ft 1 in Weight: 97.1 kg Allergies Allergy/AdvReac Type Severity Reaction Status Date / Time atorvastatin [From Lipitor] AdvReac Unknown leg Verified 12/17/20 06:29 cramping rosuvastatin [From Crestor] AdvReac Unknown leg Verified 12/17/20 06:29 cramping flu vaccine AdvReac Unknown Vomiting Uncoded 12/17/20 06:29 Medications Home Medications Medication Instructions Recorded Confirmed Last Taken dulaglutide 1.5 mg/0.5 mL 3 mg SUBCUT WK 10/28/20 12/19/20 12/12/20 [facility] hydrocodone 5 mg-acetaminophen 325 1 tab PO BID PRN 10/28/20 12/19/20 12/18/20 mg tablet metformin 500 mg tablet 500 mg PO PM 12/13/20 12/19/20 12/18/20 dapagliflozin 10 mg tablet 10 mg PO QAM 12/19/20 12/19/20 12/18/20 (Farxiga) ibuprofen 200 mg tablet 400 mg PO Q6H PRN 12/19/20 12/19/20 12/18/20 NPO Date Last Intake of Fluids: 12/19/20 Time Last Intake of Fluids: 03:00 Date Last Intake of Solids: 12/18/20 Time Last Intake of Solids: 17:00 Past Medical History Medical History Bilateral kidney stones Cardiac murmur as child CKD (chronic kidney disease) Colon polyps Diabetes mellitus, type 2 GERD (gastroesophageal reflux disease) no longer on meds Hyperlipidemia Intervertebral lumbar disc disorder Malignant neoplasm of left kidney kidney removed > Dec [address] > [facility] > no chemo MRSA infection hx of > 5 yrs ago > to face Obesity Pancreatic cyst just monitoring Vitamin D deficiency Exercise / Class Metabolic Activity II 4-5 Yardwork/Stairs/Walk up hill Past Family History Family History Father Hypertension Stroke Heart disease Diabetes Mother Hypertension Heart disease Diabetes Grandmother (Paternal) Diabetes Past Surgical History Surgical History H/O discectomy L4-5 S1 H/O hernia repair H/O vasectomy History of colonoscopy History of esophagogastroduodenoscopy (EGD) History of lithotripsy Past Anesthesia History No Hx of Anesthesia Complications and No Family Hx of Anesthesia Complications History of PONV No Hx of PONV and No Hx of Motion Sickness Social History Smoking Status: Never smoker tobacco type: smokeless tobacco Hx Alcohol Use: No Hx Substance Use: No substance use type: does not use Physical Exam Vital Signs Last Vital Signs Temp 36.2 C L 12/19/20 10:19 Pulse 70 12/19/20 10:19 Resp 14 12/19/20 10:19 BP 99/64 L 12/19/20 10:19 Pulse Ox 96 12/19/20 10:19 Constitutional + obese ENMT Mouth: no dentition abnormality Thyromental Distance: > or= 3.5 Finger Breadths Mallampati Class: II Neck normal visual inspection, trachea midline and + facial hair; neck extension not limited Respiratory normal respiratory effort Auscultation: lungs clear to auscultation bilaterally Cardiovascular Rate/Rhythm: regular rate and regular rhythm Heart Sounds: no murmur Vessels: no carotid bruit Musculoskeletal Spine: normal cervical ROM Extremities: extremities normal to inspection Neurologic moves all extremities Motor/Sensory: no sensory deficit Psychiatric Orientation: alert and oriented x 3 Testing Laboratory Results 12/19/20 04:43 12/19/20 04:43 Urine Color Yellow 12/19/20 05:45 Urine Appearance Cloudy (Clear) A 12/19/20 05:45 Urine pH 5.0 (4.5-7.5) 12/19/20 05:45 Ur Specific [place] 1.040 (1.000-1.030) H 12/19/20 05:45 Urine Protein Trace (Negative) H 12/19/20 05:45 Urine Glucose (UA) 3+ (Negative) H 12/19/20 05:45 Urine Ketones 1+ (Negative) H 12/19/20 05:45 Urine Nitrite Negative (Negative) 12/19/20 05:45 Ur Leukocyte Esterase Negative (Negative) 12/19/20 05:45 Urine WBC (Auto) 1-5 /hpf (0-5) 12/19/20 05:45 Urine RBC (Auto) >30 /hpf (0-4) H 12/19/20 05:45 U Hyaline Cast (Auto) 0 /lpf (0-5) 12/19/20 05:45 U Epithel Cells (Auto) 5-10 /lpf (0-5) H 12/19/20 05:45 Urine Bacteria (Auto) Negative (Negative) 12/19/20 05:45 12/19/20 12/19/20 11:18 08:16 POC Glucose 158 H 192 H Electrocardiogram Date: 12/15/20 Findings: + NSR @ (at 80) Chest X-Ray Date: 12/15/20 Findings: + NAD
[2020-12-19] MEDS ORDERED: INSULIN HUMAN REGULAR SC SCH ×2 (11:30→12:00)
[2020-12-19] MEDS ORDERED: ceFAZolin 2000MG 2,000 MG/15 ML SYR IV ONE (11:41)
[2020-12-19] MEDS ORDERED: DIATRIZOATE MEGLUMINE 30% 100ML VIAL INSTIL ONE (11:47)
--- NOTE | 2020-12-19 11:59 | Operative Report ---
PG Post Operative Report Pre & Post Diagnosis Operation Date: 12/19/20 12:00 Pre-Op Diagnosis: Nephrolithiasis Post-Op Diagnosis: Nephrolithiasis I identified the patient and participated in the time-out.: Yes Procedure Operation Date: 12/19/20 12:00 Actual Procedures p Cystoscopy, Retrograde Pyelogram, Left Ureteral Stent Insertion(Left) - Phoenix Liz MD Surgeon Phoenix Liz MD Head Chopper none Estimated Blood Loss 0 Findings Consistent with Post-Op Diagnosis stone fragments in the bladder, flushed out with cystoscope sheath. Filling defect in proximal left ureter suspicious for obstructing stone. Successful left ureteral stent placement. Specimens bladder stones for analysis Drains 6 Fr x 26 cm double-J ureteral stent in left ureter. Anesthesia Type General Complications none Disposition Disposition: Recovery Room Indications This is a 55 year-old male with history of nephrolithiasis who underwent ESWL on 12/17/2020 for left sided stones. He developed significant left flank pain after the surgery that could not be managed at home. He presented to the ER where CT identified a 6x7mm stone in the proximal ureter. Due to poor pain cont rol and low chance of spontaneous passage, he presents to the OR today for stent placement to decompress the left kidney and hopefully alleviate his pain. Description of Procedure The patient was identified in the holding area and informed consent was confirmed. They were marked on the left side, then were taken to the operating room where general anesthesia was initiated. They were placed in the dorsal lithotomy position with all pressure points appropriately padded. They were prepped and draped in the usual sterile fashion and a preoperative timeout was performed. A well-lubricated cystoscope was inserted per urethra and panendoscopy was performed. The urethra was normal with no strictures. Prostate was moderately enlarged. His bladder was notable for some stone fragments, approximately 4 mm in diameter. These were flushed through the cystoscope sheath and sent for stone analysis. The ureteral orifices were in orthotopic position bilaterally. The left ureteral orifice was identified and cannulated with a 5 [place] open- ended catheter. A retrograde pyelogram was performed demonstrating the ureter was normal in course and caliber up to the proximal ureter where there was abrupt narrowing, suggesting the stone. A Sensor wire was advanced to the level of the kidney under fluoroscopic guidance. The 5-Fr catheter was advanced over the wire and the kidney was opacified with dye to confirm position. There was hydronephrosis of the left kidney. Over the wire, a 6 Norwegian x 26 centimeter double-J ureteral stent was advanced. When the wire was removed, the proximal curl was visualized in the kidney with x-ray, and the distal curl visualized in the bladder with the cystoscope. At this point the bladder was drained and all instrumentation was removed. The patient was then awakened from anesthesia and was brought to the PACU in stable condition. I attest to the content of the Intraoperative Record and any orders documented therein. Any exceptions are noted below.
--- NOTE | 2020-12-19 12:04 | Fluoroscopy Report ---
FL retrograde includes kub CLINICAL HISTORY: CYSTO, LEFT STENT PLACEMENT TECHNIQUE: 1 views were obtained with the C-arm in the OR with the above procedure. Total fluoroscopy time was 13.4 seconds. Total skin dose was 3.7 mGy. Comparison: Comparison is made to CT abdomen and pelvis 12/19/2020 FINDINGS/IMPRESSION: Single intraoperative image of left retrograde cystoscopy with left stent placem ent noted. Please correlate with intraoperative fluoroscopy and operative report. ACT 112: Negative or not required by law. Electronically signed by: Johnnie Rock M.D. 12/19/2020 12:03 PM
--- NOTE | 2020-12-19 12:37 | Anesthesiology Progress Note ---
Date of Service December 19, 2020 Anesthesia Post Procedure Vital Signs Vital Signs: Temp Pulse Pulse Pulse Resp BP BP 12/19/20 12:30 70 18 120/75 12/19/20 12:20 74 15 114/74 12/19/20 12:10 67 17 101/70 12/19/20 12:00 36.1 C L 69 20 111/71 12/19/20 10:19 36.2 C L 70 14 12/19/20 10:00 74 16 12/19/20 08:00 70 16 12/19/20 06:36 71 16 12/19/20 05:43 89 16 12/19/20 04:59 92 H 12/19/20 04:19 36.5 C 79 16 161/79 H BP Pulse Ox 12/19/20 12:30 95 12/19/20 12:20 100 12/19/20 12:10 99 12/19/20 12:00 99 12/19/20 10:19 99/64 L 96 12/19/20 10:00 105/51 L 98 12/19/20 08:00 120/71 96 12/19/20 06:36 120/71 94 12/19/20 05:43 125/71 96 12/19/20 04:59 97 12/19/20 04:19 97 Pain Intensity Flank: Pain Intensity: 4 Transfer of Care Handoff Completed per policy Notes Mental Status: alert / awake / arousable Patient Amnestic to Procedure: Yes Nausea / Vomiting: adequately controlled Pain: adequately controlled Airway Patency, RR, SpO2: stable & adequate BP & HR: stable & adequate Hydration State: stable & adequate Anesthetic Complications: no major complications apparent
[2020-12-19] MEDS ORDERED: ENOXAPARIN INJ 40 MG/0.4 ML SYR SQ SCH (13:00)
[2020-12-19] MEDS: SODIUM CHLORIDE 0.9% 1000ML 1,000 ML IV SCH ×4 (13:31→16:10)
[2020-12-19] MEDS: CIPROFLOXACIN / D5W 400 MG/200 ML BAG IV SCH (13:54)
[2020-12-19 14:21] LABS: BUN Creatinine Ratio 13.1 (10-20); Calcium 8.6 mg/dl (8.5-10.1); Creatinine Clr Calc Pharmacy 75.6 ml/min; Est GFR (African American) 68.2 ml/min; Est GFR (Non-African American) 58.8 ml/min; Potassium 3.9 mmol/L (3.5-5.1)
[2020-12-19] MEDS: INSULIN ASPART 100 UNITS/ML 3 ML PEN SC SCH ×2 (17:18→21:13)
[2020-12-19] MEDS ORDERED: TAMSULOSIN HCL 0.4 MG CAP PO SCH (21:00)
[2020-12-19] MEDS: INSULIN GLARGINE SOLOSTAR 100 UNITS/ML 3 ML PEN SC SCH (21:10)
[2020-12-20] MEDS ORDERED: oxyCODONE HCL IR 5 MG TAB (IMMEDIATE RELEASE) PO PRN (00:10)
[2020-12-20] MEDS: CIPROFLOXACIN / D5W 400 MG/200 ML BAG IV SCH (00:37)
[2020-12-20 07:25] LABS: Basophils # (auto) 0.01 K/uL (0-0.2); Basophils % (auto) 0.1 %; Eosinophils # (auto) 0.03 K/uL (0-0.5); Eosinophils % (auto) 0.3 %; Hematocrit (blood only) 38.9 % (42-52); Hemoglobin 13.3 g/dL (14.0-18.0); Immature Granulocytes # (auto) 0.02 K/uL (0.00-0.02); Immature Granulocytes % (auto) 0.2 %; Lymphocytes # (auto) 1.56 K/uL (1.2-3.4); Lymphocytes % (auto) 16.9 %; Mean Corpuscular Hgb Conc 34.2 g/dL (32-36); Mean Corpuscular Volume 81.9 fL (80-100); Mean Platelet Volume 9.4 fL (7.4-10.4); Monocytes # (auto) 0.59 K/uL (0.11-0.59); Monocytes % (auto) 6.4 %; Neutrophils # (auto) 7.02 K/uL (1.4-6.5); Neutrophils % (auto) 76.1 %; Platelet Count 195 K/uL (130-400); RDW Standard Deviation 39.1 fL (36.4-46.3); Red Blood Count 4.75 M/uL (4.7-6.1); White Blood Count 9.23 K/uL (4.8-10.8)
[2020-12-20 08:01] LABS: BUN Creatinine Ratio 16.8 (10-20); Calcium 8.4 mg/dl (8.5-10.1); Est GFR (African American) 76.3 ml/min; Est GFR (Non-African American) 65.9 ml/min; Magnesium 2.1 mg/dl (1.8-2.4); Potassium 3.9 mmol/L (3.5-5.1)
--- NOTE | 2020-12-20 08:11 | Urology Progress Note ---
Date of Service December 20, 2020 Assessment & Plan (1) Left flank pain: (2) Left ureteral calculus: (3) ERASTO (acute kidney injury): Plan: 55 year-old male patient, s/p left ESWL 12/17, admitted with intractable left flank pain secondary to obstructing 4 mm left proximal ureteral calculus. -POD #1 cystoscopy, retrograde pyelogram, and left ureteral stent insertion with Dr. Liz. -Patient clinically progressing as expected with improvement in left flank pain. -He remains afebrile. -Labs reviewed - white count returned to normal, creatinine stable. -Urine and blood cultures pending, treat if indicated. -As he is doing well, okay to discharge home from perspective. -Recommend home with pain control, PRN Pyridium, Tamsulosin. -Will arrange outpatient follow-up with urology service this week to discuss stone management. -Expected clinical course reviewed with patient, all questions answered. Thank you for allowing us to participate in the acute care of Mr. Barba. Please reconsult us with additional questions, concerns or changes in patient status. Admission and Anticipated Discharge Date Admission Date: December 19, 2020 Subjective POD #1 cystoscopy, retrograde pyelogram, and left ureteral stent insertion with Dr. Liz. Patient doing well postoperatively. Left flank pain has significantly improved. Does report mild discomfort to left flank with urination. Mild dysuria, denies hematuria. Denies urinary frequency/urgency. Denies fevers or chills. Denies nausea or vomiting. Did have a headache last night which has resolved. Overall, has had improvement of symptoms. Chart review: Afebrile Wbc 9.23 (previously 15.01) Hgb 13.3 Creatinine 1.22 Urine culture pending. Blood cultures pending. Patient currently on IV Ciprofloxacin. Denies additional urologic concerns today. Review of Systems Constitutional: as per Subjective / HPI; no fever and no chills Gastrointestinal: as per Subjective / HPI; no nausea and no vomiting Genitourinary: + as per Subjective / HPI Physical Exam Constitutional: well developed and well nourished; no acute distress and not ill appearing Respiratory: normal respiratory effort and able to speak in complete sentences; no respiratory distress and no audible wheezes Gastrointestinal (Abdomen): Inspection/Auscultation: abdomen normal to inspection; abdomen not distended Percussion/Palpation: abdomen soft; abdomen nontender and no guarding Psychiatric: Orientation: alert, oriented x 3 and cooperative Affect: euthymic affect Genitourinary: no CVA tenderness Results & Data ([facility]) Vital Signs (Past 12 Hours) Vital Signs Temp Pulse Pulse Resp BP BP Pulse Ox 12/20/20 07:00 36.3 C L 72 18 109/63 97 12/20/20 02:52 36.6 C 62 18 106/62 97 12/20/20 00:25 73 12/19/20 22:00 36.7 C 81 18 110/64 97 PG Care Time/CCT Total # of Minutes Spent Total Time Spent with Patient: Total time spent is greater than 50% in coordination of care (as documented) at patient's floor/unit and/or counseling patient: Coding Level of Care Code 04050 Subseq Hosp Care Lvl 2 Diagnoses Left flank pain R10.9 Left ureteral calculus N20.1 ERASTO (acute kidney injury) N17.9
[2020-12-20] MEDS: INSULIN ASPART 100 UNITS/ML 3 ML PEN SC SCH ×2 (08:19→13:07)
[2020-12-20] MEDS: INSULIN GLARGINE SOLOSTAR 100 UNITS/ML 3 ML PEN SC SCH (08:19)
[2020-12-20 08:41] LABS: Estimated Average Glucose 180 mg/dl; Hemoglobin A1C 7.9 % (4.5-5.6)
--- NOTE | 2020-12-20 19:14 | Discharge Summary ---
Date of Service December 20, 2020 Admission HPI Per Admitting Provider Mr. Barba is a 55 y/o WM with a PMHx of NIDDM, recurrent nephrolithiasis, and RCCA s/p partial kidney resection who presented with Left flank pain x 2-3 days. Underwent left sided ESWL on 12/17 (Dr. Liz) for 15mm stone. Tolerated the procedure without issues. Having intermittent left sided flank pain since. Alleviates with visible passing of stones. Last evening, developed severe pain that was unrelenting upon awakening this am with associated chills, nausea and vomiting. He is having reid hematuria and dysuria. In ED, found to be afebrile and HD stable. Noted to have a FBS of 356, mild ERASTO of 1.8 (1.0 at baseline), and leukocytosis of 15K with no significant shift on differential. KUB down showing obvious stone in what appears to be the left ureter. His AG is closed (9.0) and his serum bicarb is normal (24); however, his beta-hydroxybutyric acid is ever so slightly elevated at 2.83 (ref range of 2.81). Was treated with IVF, Morphine, Zofran, and 10U IV insulin. Pain currently improved but not resolved. FU BS is 192. Will be hospitalized for further evaluation and care. Principal Diagnosis intractable renal colic pain cystoscopy, retrograde pyelogram, left ureteral stent placed Discharge Exam The patient appeared well Vital signs as documented. Lungs are clear to auscultation and appear unlabored Cardiac exam, Rhythm is regular.. No murmurs, rubs or gallops. Abdominal exam reveals normal bowel sounds, soft non tender, no masses Extremities are nonedematous and both pedal pulses are normal. Neurologic exam is alert and oriented, no focal loss of strength or sensation Skin is without bruises or rashes Psychologically is without concerns for anxiety or depression. Discharge Data Allergies Allergy/AdvReac Type Severity Reaction Status Date / Time atorvastatin [From Lipitor] AdvReac Unknown leg Verified 12/17/20 06:29 cramping rosuvastatin [From Crestor] AdvReac Unknown leg Verified 12/17/20 06:29 cramping flu vaccine AdvReac Unknown Vomiting Uncoded 12/17/20 06:29 Consultations 12/19/20 07:23 ED Decision to Admit Stat 12/19/20 08:38 Consult Urology Stat Procedures Performed Operation Date: 12/19/20 12:00 Actual Procedures p Cystoscopy, Retrograde Pyelogram, Left Ureteral Stent Insertion(Left) - Phoenix Liz MD Ordered Studies 12/19/20 08:38 CT abd pelvis wo con Stat 12/19/20 10:48 FL retrograde includes kub Routine Hospital Course (1) Hyperglycemia: - flirting with DKA - FBS 356 upon arrival to ED - AG closed: 9.0 - Serum bicarb normal: 24 - Betahydroxybutyric acid every so slightly elevated: 2.83 (normal <2.81) - 10U IV insulin and IVF given in ED - A1C 7.9, did reinforce diet and follow up with primary care provider (2) Nephrolithiasis: - KUB with obvious stone in what appears to be the left ureter - ? hydronephrosis/obstruction--> - consult urology--> Dr. Liz-- cysto and stent 12/19/20 - flomax - pyridium -hydrocodone - APAP for any fevers (3) Leukocytosis: - panculture (UC/BC). UA not overly impressive (nitrite and leukocyte esterase negative ) urine and blood cultures are negative at time of discharge (4) ERASTO (acute kidney injury): improved (5) Type 2 diabetes mellitus: -resume trulicity, farxiga and metformin follow up with pcp to work to bring aic down (6) Malignant neoplasm of left kidney: - s/p partial resection (7) Hyperlipidemia: - diet controlled - pt full code Total Time Total Time Spent Total Time Spent (In Minutes): It required greater than 30 minutes to prepare this patient for discharge Discharge Plan Discharge Items Patient Disposition: Home - Self-Care Reason For Visit: L FLANK PAIN, HYPERGLYCEMIA Discharge Diagnosis: left flank pain, s/p cystoscopy and left ureteral stent Activity: Resume your previous activity Non-emergency contact: Primary Care Provider and Urologist Call non-emergency contact if: your symptoms worsen and you have a fever Follow-up/Referrals: Phoenix Liz MD [Physician] - 12/23/20 2:15 pm Jose Carlin M.D. [Primary Care Provider] - (PLEASE CALL YOUR PRIMARY CARE PROVIDER TO SCHEDULE A DISCHARGE FOLLOW-UP WITHIN 7-10 DAYS) Diet: Carb Consistent or DM2 Addtl Attending Provider Instructions: Post-Cystoscopy Instructions * You may notice blood-tinged urine or experience mild discomfort when urinating after having cystoscopy. This is normal and usually resolves within two or three days. Do not resume taking aspirin, blood thinners or anti-inflammatory medications for at least three days after cystoscopy (or as directed by your primary doctor). * We advise increasing your fluid intake for several days after cystoscopy, especially if there is blood visible in the urine. If you must restrict your fluid intake for medical reasons, please contact your primary doctor for specific advice. * In certain cases, the urologist may prescribe antibiotics for you prior to and/or after this procedure. If antibiotics are prescribed, be sure to finish all the medication as directed, even if you feel fine. * Please contact our office immediately if you cannot urinate or develop excessive bleeding, abdominal pain or fever after cystoscopy Pending Studies at Discharge: Yes Studies:: stone analysis Stand-Alone Forms: [place], Smoking Cessation Medications and DC Order Prescriptions: New tamsulosin 0.4 mg Capsule 0.4 mg PO HS Qty: 20 RF: 0 phenazopyridine [Pyridium] 200 mg tablet 200 mg PO TID PRN (Reason: pain) Qty: 10 RF: 0 Continued Trulicity 1.5 mg/0.5 mL pen injector 3 mg subcut WK RF: 0 ibuprofen 200 mg Tablet 400 mg PO Q6H PRN (Reason: Pain) RF: 0 Farxiga 10 mg tablet 10 mg PO QAM RF: 0 hydrocodone-acetaminophen 5-325 mg tablet 1 tab PO BID PRN (Reason: Pain) Qty: 20 RF: 0 metformin 500 mg Tablet 500 mg PO PM RF: 0 Discontinued hydrocodone-acetaminophen 5-325 mg tablet 1 tab PO BID PRN (Reason: Pain) RF: 0 Discharge Orders: Discharge Order (Routine); Ordered 12/20/20 Ordered By: Carlos Alberto Ferris Admission Data Admit Date/Time: 12/19/20 10:23 Attending Provider: Carlos Alberto Ferris Admit Provider: Johnnie Carcamo Primary Care Provider: Jose Carlin Other Providers: Johnnie Carcamo ; Phoenix Liz Other Interventions: Discharge Summary Assessment (RN) Last Done: 12/20/20 13:00 Coding Level of Care Code D/C DAY MANAGEMENT >30 MINS Diagnoses Hyperglycemia R73.9 Nephrolithiasis N20.0 Leukocytosis D72.829 ERASTO (acute kidney injury) N17.9 Type 2 diabetes mellitus E11.9 Malignant neoplasm of left kidney C64.2 Hyperlipidemia E78.5
[2020-12-23 04:56] LABS: Component 2 DNR; Source KIDNEY STONE
== END 2020-12-20 14:27 | disposition home or self-care (01) ==
LOC: 2N 04:15 → ED 04:15 → 2N 10:10 → SUATTDRO 10:23

== ENCOUNTER 2021-01-12 12:39 | Inpatient (IN) ==
[2021-01-12 14:48] LABS: Albumin Level 3.5 gm/dl (3.4-5.0); BUN Creatinine Ratio 15.1 (10-20); Calcium 9.4 mg/dl (8.5-10.1); Creatinine Clr Calc Pharmacy 53.9 ml/min; Est GFR (African American) 51.9 ml/min; Est GFR (Non-African American) 44.7 ml/min; Potassium 3.5 mmol/L (3.5-5.1)
[2021-01-12 14:50] LABS: Albumin Globulin Ratio 0.8 (0.9-2); Bilirubin,Total 1.4 mg/dl (0.2-1); Globulin 4.4 gm/dl (2.5-4.0); Total Protein 7.9 gm/dl (6.4-8.2)
[2021-01-12 15:00] LABS: Basophils # (auto) 0.02 K/uL (0-0.2); Basophils % (auto) 0.1 %; Hemoglobin 15.5 g/dL (14.0-18.0); Immature Granulocytes # (auto) 0.03 K/uL (0.00-0.02); Immature Granulocytes % (auto) 0.2 %; Lymphocytes # (auto) 0.78 K/uL (1.2-3.4); Lymphocytes % (auto) 4.6 %; Mean Corpuscular Hemoglobin 28.5 pg (25-34); Mean Corpuscular Hgb Conc 34.4 g/dL (32-36); Mean Corpuscular Volume 82.9 fL (80-100); Mean Platelet Volume 9.9 fL (7.4-10.4); Monocytes # (auto) 1.57 K/uL (0.11-0.59); Monocytes % (auto) 9.3 %; Neutrophils # (auto) 14.46 K/uL (1.4-6.5); Neutrophils % (auto) 85.8 %; Platelet Count 176 K/uL (130-400); RDW Coefficient of Variation 13.7 % (11.5-14.5); RDW Standard Deviation 41.7 fL (36.4-46.3); Red Blood Count 5.43 M/uL (4.7-6.1); White Blood Count 16.86 K/uL (4.8-10.8)
[2021-01-12 15:02] LABS: Appearance Urine Clear (Clear); Bacteria Urine Automated Negative (Negative); Bilirubin Urine Negative (Negative); Blood Urine 3+ (Negative); Color Urine Yellow; Epithelial Cell Urine Auto 0-5 /lpf (0-5); Glucose Urine UA 3+ (Negative); Ketones Urine 2+ (Negative); Leukocyte Esterase Urine Negative (Negative); Nitrite Urine Negative (Negative); Protein Urine 1+ (Negative); Specific Gravity Urine 1.039 (1.000-1.030); Urobilinogen Urine Negative (Negative)
[2021-01-12] MEDS ORDERED: ONDANSETRON INJ 2 MG/ML 2 ML VIAL IV STA (15:22)
[2021-01-12] MEDS ORDERED: ACETAMINOPHEN 1,000 MG/100 ML VIAL IV STA (15:24)
--- NOTE | 2021-01-12 15:27 | Emergency Department Note ---
History of Present Illness General Chief complaint: Infection Stated complaint: INFECTION FROM STENT Time Seen by Provider: 01/12/21 15:07 History of Present Illness Maximum Pain Intensity: 2 This is a 55-year-old male with a past medical history significant for that of type 2 diabetes with recent ureteral stent placement the presents to the emergency department via private vehicle with complaints of "infection". The patient notes that he had a ureteral stent placed on 01/[address] Liz. Since that time he has had some chills/shaking but notes that his fever developed last night and also he has associated nausea and vomiting which has developed. He was unable to take any medications today. He went to his PCP office and had a Covid test this morning which was negative. He attempted to take Tylenol in the office but vomited this. He also received some sort of injection of an antibiotic but he does not know what this was. He states that his family doctor talked with his urologist and was recommended to come here for further evaluation and management. No chest pain or shortness of breath. Patient does note left flank pain at this time which he currently rates as a 2/10. Home Medications Medication Instructions Recorded Confirmed Type dulaglutide 1.5 mg/0.5 mL 3 mg SUBCUT WK 10/28/20 01/12/21 History subcutaneous pen injector (Trulicity) metformin 500 mg tablet 500 mg PO BID 12/13/20 01/12/21 History dapagliflozin 10 mg tablet 10 mg PO QAM 12/19/20 01/12/21 History (Farxiga) ibuprofen 200 mg tablet 400 mg PO Q6H PRN 12/19/20 01/12/21 History hydrocodone 5 mg-acetaminophen 325 1 tab PO BID PRN #20 tab 12/20/20 01/12/21 Rx mg tablet phenazopyridine 200 mg tablet 200 mg PO TID PRN #10 tab 12/23/20 01/12/21 Rx (Pyridium) tamsulosin 0.4 mg capsule 0.4 mg PO HS #30 cap 12/23/20 01/12/21 Rx acetaminophen 325 mg tablet 650 mg PO Q6H PRN 01/12/21 01/12/21 History (Tylenol) Allergies Allergy/AdvReac Type Severity Reaction Status Date / Time atorvastatin [From Lipitor] AdvReac Intermediate leg Verified 01/12/21 15:52 cramping Influenza Virus Vaccines AdvReac Intermediate Vomiting Verified 01/12/21 17:35 rosuvastatin [From Crestor] AdvReac Intermediate leg Verified 01/12/21 15:52 cramping Past Med/Surg History Medical History Cardiac murmur as child CKD (chronic kidney disease) Diabetes mellitus, type 2 GERD (gastroesophageal reflux disease) no longer on meds Hyperlipidemia Intervertebral lumbar disc disorder Malignant neoplasm of left kidney kidney removed > Dec 2019 > [facility] > no chemo MRSA infection hx of > 5 yrs ago > to face Pancreatic cyst just monitoring Surgical History H/O discectomy L4-5 S1 H/O hernia repair H/O vasectomy History of colonoscopy History of cystoscopy with stent History of esophagogastroduodenoscopy (EGD) History of lithotripsy Family History Father Hypertension Stroke Heart disease Diabetes Mother Hypertension Heart disease Diabetes Grandmother (Paternal) Diabetes Social History Smoking Status: Never smoker Tobacco Type: Smokeless Tobacco (Dip or Chew) Second Hand Exposure: No; Hx Alcohol Use: No Hx Substance Use: No Preferred Language: Kenyan Communication Ability: Effective 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 Beliefs That Will Affect Care: None marital status: Current Living Situation: Spouse current occupational status: retired Feels Safe at Home: Yes Assistive Devices: Glasses Review of Systems A total of 10 systems reviewed and were otherwise negative Physical Exam Vital Signs Vital Signs - 24 hr 01/12/21 13:27 01/12/21 15:15 01/12/21 15:16 Temperature 37.8 C H 39.5 C H Temperature Source Oral Oral Pulse Rate 121 H 132 H Pulse Rate [Left Apical] 131 H Pulse Rate from SpO2 Sensor 132 H Pulse Rhythm [Left Apical] Regular Pulse Strength [Left Apical] Normal Respiratory Rate 20 16 20 Respiratory Effort / Characteristics Non-Labored Spontaneous Respiratory Depth Normal Blood Pressure 117/73 143/90 H Blood Pressure [Right Arm] 143/90 H Blood Pressure Mean 87 107 Blood Pressure Mean [Right Arm] 107 Blood Pressure Position [Right Arm] Sitting Pulse Oximetry 95 99 98 Oxygen Delivery Method Room Air Room Air Sepsis Recent Fever Within 48 Hours Yes Sepsis New/Unexplained Change in Mental Status No Sepsis Action Taken by Nursing No Action Required 01/12/21 15:30 01/12/21 15:45 01/12/21 16:00 Temperature Temperature Source Pulse Rate 127 H 125 H 127 H Pulse Rate [Left Apical] Pulse Rate from SpO2 Sensor 126 H 125 H 126 H Pulse Rhythm [Left Apical] Pulse Strength [Left Apical] Respiratory Rate 22 14 18 Respiratory Effort / Characteristics Respiratory Depth Blood Pressure 140/82 Blood Pressure [Right Arm] Blood Pressure Mean 101 Blood Pressure Mean [Right Arm] Blood Pressure Position [Right Arm] Pulse Oximetry 93 95 96 Oxygen Delivery Method Sepsis Recent Fever Within 48 Hours Sepsis New/Unexplained Change in Mental Status Sepsis Action Taken by Nursing 01/12/21 16:22 01/12/21 16:27 01/12/21 16:30 Temperature 38.3 C H Temperature Source Oral Pulse Rate 124 H 119 H Pulse Rate [Left Apical] 119 H Pulse Rate from SpO2 Sensor 123 H 119 H Pulse Rhythm [Left Apical] Pulse Strength [Left Apical] Respiratory Rate 17 22 19 Respiratory Effort / Characteristics Respiratory Depth Blood Pressure 91/49 L Blood Pressure [Right Arm] 90/49 L Blood Pressure Mean 63 Blood Pressure Mean [Right Arm] 62 Blood Pressure Position [Right Arm] Pulse Oximetry 94 94 96 Oxygen Delivery Method Room Air Sepsis Recent Fever Within 48 Hours Sepsis New/Unexplained Change in Mental Status Sepsis Action Taken by Nursing 01/12/21 16:45 01/12/21 17:00 Temperature Temperature Source Pulse Rate 117 H 115 H Pulse Rate [Left Apical] Pulse Rate from SpO2 Sensor 118 H 115 H Pulse Rhythm [Left Apical] Pulse Strength [Left Apical] Respiratory Rate 13 22 Respiratory Effort / Characteristics Respiratory Depth Blood Pressure 110/70 112/52 L Blood Pressure [Right Arm] Blood Pressure Mean 83 72 Blood Pressure Mean [Right Arm] Blood Pressure Position [Right Arm] Pulse Oximetry 95 95 Oxygen Delivery Method Room Air Sepsis Recent Fever Within 48 Hours Sepsis New/Unexplained Change in Mental Status Sepsis Action Taken by Nursing VITAL SIGNS - Vital signs and nursing notes were reviewed. Febrile, tachycardic, hypertensive. GENERAL -55 -year-old male appearing his stated age who is in no acute distress but is tired appearing. Communicates well with provider and answers questions appropriately. SKIN - Without rashes. No meningeal or petechial rash. HEAD - NC/AT. EYES - PERRL with EOMI bilaterally. Sclera anicteric. EARS - No deformities of external structures noted on gross examination bilaterally. NOSE - Midline and without cyanosis. No epistaxis or purulent drainage noted. MOUTH/OROPHARYNX - Without perioral cyanosis. NECK - Neck with FROM. No nuchal rigidity. LUNGS - Chest wall symmetric without accessory muscle use, intercostals retractions, or central cyanosis. Normal vesicular breath sounds CTA B/L. No wheezes, rales, or rhonchi appreciated. CARDIAC - RRR with S1/S2. No murmur, rubs, or gallops appreciated. ABDOMEN - Abdominal contour normal without pulsations or visible masses. BS normoactive all four quadrants. No tenderness, palpable masses, hepatosplenomegaly, or ascites noted. EXTREMITIES - No clubbing or peripheral cyanosis. +5/5 strength noted in UE/LE bilaterally. NEUROLOGIC - Cranial nerves II through XII grossly intact. PSYCH - A&Ox3 and cooperates fully with examiner. Pt is very pleasant and interacts well with examiner. Course Administered Medications Acetaminophen (Acetaminophen 325 Mg Tab) 650 mg PO Q4H PRN PRN Reason: Pain or Fever Stop: 02/11/21 17:11 Last Admin: 01/12/21 21:24 Dose: 650 mg Documented by: [id number] Piperacillin Sod/Tazobactam (Sod 3.375 gm/ Dextrose) 115 mls @ 28.75 mls/hr IV Q8 CHANDNI; Protocol Stop: 01/14/21 13:59 Last Infusion: 01/13/21 01:32 Dose: 0 mls/hr Documented by: [id number] Admin: 01/12/21 21:21 Dose: 28.8 mls/hr Documented by: [id number] Sodium Chloride (Nss 1000ml) 1,000 mls @ 80 mls/hr IV .[id number] CHANDNI Stop: 01/13/21 22:59 Last Admin: 01/12/21 23:10 Dose: 80 mls/hr Documented by: [id number] Insulin Aspart (Insulin Aspart 100 Units/Ml 3 Ml Pen) 0 units SC ACHS CHANDNI Stop: 02/11/21 20:59 Last Admin: 01/12/21 21:21 Dose: 5 units Documented by: [id number] Cosigned by: [id number] Insulin Glargine (Insulin Glargine Solostar 100 Units/Ml 3 Ml Pen) 10 units SC BID CHANDNI Stop: 02/11/21 20:59 Last Admin: 01/12/21 21:21 Dose: 10 units Documented by: [id number] Cosigned by: [id number] Tamsulosin HCl (Tamsulosin Hcl 0.4 Mg Cap) 0.4 mg PO HS CHANDNI Stop: 02/11/21 20:59 Last Admin: 01/12/21 21:24 Dose: 0.4 mg Documented by: [id number] Discontinued Medications Sodium Chloride (Nss 1000ml) 1,000 mls @ 999 mls/hr IV .Q1H1M CHANDNI Stop: 01/12/21 16:30 Last Infusion: 01/12/21 17:48 Dose: 0 mls/hr Documented by: [id number] Admin: 01/12/21 15:26 Dose: 999 mls/hr Documented by: [id number] Acetaminophen (Ofirmev) 1,000 mg in 100 mls @ 400 mls/hr IV NOW STA Stop: 01/12/21 15:38 Last Infusion: 01/12/21 17:09 Dose: 0 mls/hr Documented by: [id number] Admin: 01/12/21 16:10 Dose: 400 mls/hr Documented by: [id number] Ceftriaxone Sodium (Rocephin) 1,000 mg in 50 mls @ 100 mls/hr IV NOW STA Stop: 01/12/21 16:04 Last Admin: 01/12/21 16:09 Dose: Not Given Documented by: [id number] Piperacillin Sod/Tazobactam Sod (Zosyn) 4.5 gm in 120 mls @ 240 mls/hr IV NOW ONE Stop: 01/12/21 16:15 Last Infusion: 01/12/21 17:48 Dose: 0 mls/hr Documented by: [id number] Admin: 01/12/21 16:27 Dose: 240 mls/hr Documented by: [id number] Sodium Chloride (Nss 1000ml) 1,000 mls @ 999 mls/hr IV .Q1H1M CHANDNI Stop: 01/12/21 17:30 Last Infusion: 01/12/21 17:48 Dose: 0 mls/hr Documented by: [id number] Admin: 01/12/21 16:31 Dose: 999 mls/hr Documented by: [id number] Sodium Chloride (Nss 1000ml) 400 mls @ 999 mls/hr IV .Q25M ONE Stop: 01/12/21 16:53 Last Infusion: 01/12/21 19:04 Dose: 0 mls/hr Documented by: [id number] Admin: 01/12/21 17:48 Dose: 999 mls/hr Documented by: [id number] Insulin Aspart (Insulin Aspart 100 Units/Ml 3 Ml Pen) 4 units SC 1745 ONE Stop: 01/12/21 17:46 Last Admin: 01/12/21 18:19 Dose: 4 units Documented by: [id number] Cosigned by: [id number] Ondansetron HCl (Ondansetron Inj 2 Mg/Ml 2 Ml Vial) 4 mg IV NOW STA Stop: 01/12/21 15:23 Last Admin: 01/12/21 15:26 Dose: 4 mg Documented by: [id number] Medical Decision Making Laboratory Data Result diagrams: 01/12/21 14:16 01/12/21 14:16 Lab Results 01/12/21 01/12/21 01/12/21 Range/Units 14:16 14:16 14:16 WBC 16.86 H (4.8-10.8) K/uL RBC 5.43 (4.7-6.1) M/uL Hgb 15.5 (14.0-18.0) g/dL Hct 45.0 (42-52) % MCV 82.9 (80-100) fL MCH 28.5 (25-34) pg MCHC 34.4 (32-36) g/dL RDW Std Deviation 41.7 (36.4-46.3) fL RDW Coeff of Turner 13.7 (11.5-14.5) % Plt Count 176 (130-400) K/uL MPV 9.9 (7.4-10.4) fL Immature Gran % (Auto) 0.2 % Neut % (Auto) 85.8 % Lymph % (Auto) 4.6 % [place] % (Auto) 9.3 % Eos % (Auto) 0.0 % Baso % (Auto) 0.1 % Neut # (Auto) 14.46 H (1.4-6.5) K/uL Lymph # (Auto) 0.78 L (1.2-3.4) K/uL [place] # (Auto) 1.57 H (0.11-0.59) K/uL Eos # (Auto) 0.00 (0-0.5) K/uL Baso # (Auto) 0.02 (0-0.2) K/uL Immature Gran # (Auto) 0.03 H (0.00-0.02) K/uL Sodium 133 L (136-145) mmol/L Potassium 3.5 (3.5-5.1) mmol/L Chloride 101 (98-107) mmol/L Carbon Dioxide 23 (21-32) mmol/L Anion Gap 9.0 (3-11) BUN 25 H (7-18) mg/dl Creatinine 1.68 H (0.6-1.4) mg/dl Est Cr Clr Drug Dosing 53.9 ml/min Est GFR ( Amer) 51.9 ml/min Est GFR (Non-Af Amer) 44.7 ml/min BUN/Creatinine Ratio 15.1 (10-20) Glucose 232 H (70-99) mg/dl Lactate (0.4-2.0) mmol/L Calcium 9.4 (8.5-10.1) mg/dl Total Bilirubin 1.4 H (0.2-1) mg/dl AST 9 L (15-37) U/L ALT 27 (12-78) U/L Alkaline Phosphatase 92 (45-117) U/L Total Protein 7.9 (6.4-8.2) gm/dl Albumin 3.5 (3.4-5.0) gm/dl Globulin 4.4 H (2.5-4.0) gm/dl Albumin/Globulin Ratio 0.8 L (0.9-2) Procalcitonin (0-0.5) ng/ml Urine Color Yellow Urine Appearance Clear (Clear) Urine pH 5.0 (4.5-7.5) Ur Specific [place] 1.039 H (1.000-1.030) Urine Protein 1+ H (Negative) Urine Glucose (UA) 3+ H (Negative) Urine Ketones 2+ H (Negative) Urine Blood 3+ H (Negative) Urine Nitrite Negative (Negative) Urine Bilirubin Negative (Negative) Urine Urobilinogen Negative (Negative) Ur Leukocyte Esterase Negative (Negative) Urine WBC (Auto) 10-30 H (0-5) /hpf Urine RBC (Auto) 5-10 H (0-4) /hpf U Hyaline Cast (Auto) 1-5 (0-5) /lpf U Epithel Cells (Auto) 0-5 (0-5) /lpf Urine Bacteria (Auto) Negative (Negative) SARS-CoV-2, RNA, NAAT (NEGATIVE) 01/12/21 01/12/21 01/12/21 Range/Units 15:40 15:40 17:00 WBC (4.8-10.8) K/uL RBC (4.7-6.1) M/uL Hgb (14.0-18.0) g/dL Hct (42-52) % MCV (80-100) fL MCH (25-34) pg MCHC (32-36) g/dL RDW Std Deviation (36.4-46.3) fL RDW Coeff of Turner (11.5-14.5) % Plt Count (130-400) K/uL MPV (7.4-10.4) fL Immature Gran % (Auto) % Neut % (Auto) % Lymph % (Auto) % [place] % (Auto) % Eos % (Auto) % Baso % (Auto) % Neut # (Auto) (1.4-6.5) K/uL Lymph # (Auto) (1.2-3.4) K/uL [place] # (Auto) (0.11-0.59) K/uL Eos # (Auto) (0-0.5) K/uL Baso # (Auto) (0-0.2) K/uL Immature Gran # (Auto) (0.00-0.02) K/uL Sodium (136-145) mmol/L Potassium (3.5-5.1) mmol/L Chloride (98-107) mmol/L Carbon Dioxide (21-32) mmol/L Anion Gap (3-11) BUN (7-18) mg/dl Creatinine (0.6-1.4) mg/dl Est Cr Clr Drug Dosing ml/min Est GFR ( Amer) ml/min Est GFR (Non-Af Amer) ml/min BUN/Creatinine Ratio (10-20) Glucose (70-99) mg/dl Lactate 2.5 H* (0.4-2.0) mmol/L Calcium (8.5-10.1) mg/dl Total Bilirubin (0.2-1) mg/dl AST (15-37) U/L ALT (12-78) U/L Alkaline Phosphatase (45-117) U/L Total Protein (6.4-8.2) gm/dl Albumin (3.4-5.0) gm/dl Globulin (2.5-4.0) gm/dl Albumin/Globulin Ratio (0.9-2) Procalcitonin 7.01 H (0-0.5) ng/ml Urine Color Urine Appearance (Clear) Urine pH (4.5-7.5) Ur Specific [place] (1.000-1.030) Urine Protein (Negative) Urine Glucose (UA) (Negative) Urine Ketones (Negative) Urine Blood (Negative) Urine Nitrite (Negative) Urine Bilirubin (Negative) Urine Urobilinogen (Negative) Ur Leukocyte Esterase (Negative) Urine WBC (Auto) (0-5) /hpf Urine RBC (Auto) (0-4) /hpf U Hyaline Cast (Auto) (0-5) /lpf U Epithel Cells (Auto) (0-5) /lpf Urine Bacteria (Auto) (Negative) SARS-CoV-2, RNA, NAAT NEGATIVE (NEGATIVE) Imaging Data Radiologist's Impression: Abdomen/Pelvis CT 01/12/21 15:[address] WITHOUT CONTRAST CT DOSE: 599.67 mGy.cm HISTORY: Acute left-sided flank pain with fever febrile, L flank pain TECHNIQUE: Multiaxial CT images of the abdomen and pelvis were performed without contrast. A dose lowering technique was utilized adhering to the principles of ALARA. COMPARISON STUDY: CT abdomen and pelvis 12/19/2020 FINDINGS: The imaged inferior cardiac chambers are unremarkable. Clear lung bases. No pneumatosis or pneumoperitoneum. The spleen is enlarged measuring up to 15.3 cm in length. Unremarkable pancreas and adrenal glands. There is mild gallbladder distention. There is no cholelithiasis or biliary ductal dilation. Hepatic steatosis. Unchanged 1.8 cm hypodense focus of the right hepatic lobe. The angelo hepatis, possibly a cyst. Numerous right greater than left nonobstructing renal calculi are redemonstrated measuring up to approximately 4 mm on the right and 4 mm on the left. Postoperative changes of the left kidney are redemonstrated. Probable small cyst of the interpolar left kidney. There is moderate left-sided hydroureteronephrosis with associated perinephric and periureteral stranding. A left ureteral stent appears to be in satisfactory positioning. No residual ureteral calculi are identified. Mild urinary bladder wall thickening with partial distention. Prostamegaly. Small fat filled right inguinal hernia. Aorta and IVC are unremarkable. There is no adenopathy. No bowel obstruction or bowel wall thickening. There is mild fecal retention. Normal appendix. Unremarkable soft tissues. Degenerative changes of the spine, pelvis and hips. IMPRESSION: 1. Moderate left-sided hydroureteronephrosis with satisfactory positioning of the left ureteral stent.. There are no residual ureteral calculi identified. 2. Nonobstructing bilateral nephrolithiasis redemonstrated 3. Hepatosplenomegaly with hepatic steatosis. 4. No bowel obstruction or bowel wall thickening. Normal appendix 5. Mild prostamegaly. ACT 112: Negative or not required by law. The above report was generated using voice recognition software. It may contain grammatical, syntax or spelling errors. Electronically signed by: Oliver Champion M.D. 01/12/2021 4:40 PM Chest X-Ray 01/12/21 16:35 XR chest 1V portable HISTORY: 55 years-old Male sepsis acute sepsis COMPARISON: Chest radiographs 12/15/2020 TECHNIQUE: Portable AP view of the chest FINDINGS: Cardiomediastinal and hilar silhouettes are unchanged. Mild right khalida diaphragmatic elevation. No pneumothorax, pleural effusion, airspace consolidation or overt pulmonary edema. No acute fracture. Degenerative changes of the shoulders and spine. IMPRESSION: No acute process. ACT 112: Negative or not required by law. The above report was generated using voice recognition software. It may contain grammatical, syntax or spelling errors. Electronically signed by: Oliver Champion M.D. 01/12/2021 4:53 PM [facility] Narrative Patient was seen and evaluated as above in room D7. Review was performed of nursing notes and vital signs. I did review pertinent previous visits and patient history. After obtaining a thorough history and physical examination the above work up was performed. Patient presents to us today with fever, chills, nausea, vomiting and notes that he recently had a ureteral stent placed. He was seen by his PCP this morning and had a Covid test which was negative. He also notes that he was received an IM dose of antibiotics but is unsure what this antibiotic was. In speaking with the patient it was likely Rocephin. Options of care were discussed with the patient. IV access was established. Labs were drawn. The patient at this time appears septic. He is tachycardic and febrile. On presentation his blood pressure was stable however he did become hypotensive throughout his stay. 30 mL/kg of IV fluids were ordered based on his ideal body weight of 80 kg. Patient denies any pulmonary or cardiac history. No contraindication to fluid load at this time. Labs reveal leukocytosis 16.86. No anemia. Hyponatremia 133. ERASTO noted with creatinine 1.68 and BUN at 25. Lactate 2.5. Glucose 232. T bili 1.4. Urinalysis reveals 3+ blood, ketones, glucose, protein and 10-30 white blood cells and 5-10 red blood cells. No bacteria. This may be sterile appearing secondary to antibiotic administration earlier today. CT scan was obtained of the abdomen and pelvis. I also added on a chest x-ray to further evaluate source of infection. This was negative. Covid testing negative. Broad-spectrum a ntibiotics were ordered to include Zosyn. Zofran was given for nausea. He was given acetaminophen IV for his fever. He was given p.o. acetaminophen reportedly earlier today but vomited this back up. Case discussed with the hospitalist. Patient will be admitted for further evaluation and management. Please refer to further documentation regarding his stay. Case was discussed with the attending physician. GCS: 15 In the evaluation and treatment of this patient the following differential d iagnoses were entertained: UTI, pyelonephritis, kidney stone, sepsis, bacteremia, COVID-19, pneumonia, among others. Impression & Plan Sepsis, S/P ureteral stent placement, Fever, Acute left flank pain Discharge Plan Visit Data Chief Complaint: Infection Stated Complaint: INFECTION FROM STENT ED Provider: Carlos Alberto Pickett ED Midlevel Provider: David Rocha Discharge Problem: Sepsis, S/P ureteral stent placement, Fever, Acute left flank pain Patient Disposition: Admitted As Inpatient Condition: Good Discharge Instructions Interventions: ED Discharge Assessment Last Done: 01/12/21 23:08
[2021-01-12] MEDS ORDERED: SODIUM CHLORIDE 0.9% 1000ML 1,000 ML IV SCH ×3 (15:30→22:00)
[2021-01-12] MEDS ORDERED: cefTRIAXone SODIUM 1,000 MG/50 ML BAG IV STA (15:35)
[2021-01-12] MEDS ORDERED: PIPERACILL/TAZOBAC CONSULT ACTIVE PRN (15:46)
[2021-01-12] MEDS ORDERED: PIPERACILLIN/TAZOBACTAM 4.5 GM/120 ML BAG IV ONE (15:46)
[2021-01-12] MEDS ORDERED: SODIUM CHLORIDE 0.9% 1000ML 400 ML IV ONE (16:29)
--- NOTE | 2021-01-12 16:40 | Emergency Department Note ---
ED Visit Note I did evaluate and examine this patient myself. I did guide management for the patient. I agree with the PA's assessment as discussed. Please see the PAs dictation for further details. I did independently review the x-rays, CT scan and blood work. Patient is presenting with fever for the past several days. He appears to have sepsis. He is tachycardic and hypotensive. He was given 30 cc/kg of ideal body weight of normal saline over 3 hours. He has a white count of 16.8. He has a creatinine of 1.68 with a BUN of 25. His lactate is 2.5. Urine shows 10-30 WBCs but no bacteria, nitrates or leukocyte Estrace. Cultures were obtained. He was given Zosyn IV. Urology was consulted as he recently had a stent placed. His blood pressure stabilized. He was admitted for sepsis. .
--- NOTE | 2021-01-12 16:42 | CT Scan Report ---
ABDOMEN AND PELVIS CT WITHOUT CONTRAST CT DOSE: 599.67 mGy.cm HISTORY: Acute left-sided flank pain with fever febrile, L flank pain TECHNIQUE: Multiaxial CT images of the abdomen and pelvis were performed without contrast. A dose lo wering technique was utilized adhering to the principles of ALARA. COMPARISON STUDY: CT abdomen and pelvis 12/19/2020 FINDINGS: The imaged inferior cardiac chambers are unremarkable. Clear lung bases. No pneumatosis or pneumoperi toneum. The spleen is enlarged measuring up to 15.3 cm in length. Unremarkable pancreas and adrenal g lands. There is mild gallbladder distention. There is no cholelithiasis or biliary ductal dilation. H epatic steatosis. Unchanged 1.8 cm hypodense focus of the right hepatic lobe. The angelo hepatis, poss ibly a cyst. Numerous right greater than left nonobstructing renal calculi are redemonstrated measuring up to appr oximately 4 mm on the right and 4 mm on the left. Postoperative changes of the left kidney are redemo nstrated. Probable small cyst of the interpolar left kidney. There is moderate left-sided hydroureter onephrosis with associated perinephric and periureteral stranding. A left ureteral stent appears to b e in satisfactory positioning. No residual ureteral calculi are identified. Mild urinary bladder wall thickening with partial distention. Prostamegaly. Small fat filled right inguinal hernia. Aorta and IVC are unremarkable. There is no adenopathy. No bowel obstruction or bowel wall thickening. There is mild fecal retention. Normal appendix. Unrema rkable soft tissues. Degenerative changes of the spine, pelvis and hips. IMPRESSION: 1. Moderate left-sided hydroureteronephrosis with satisfactory positioning of the left ureteral stent .. There are no residual ureteral calculi identified. 2. Nonobstructing bilateral nephrolithiasis redemonstrated 3. Hepatosplenomegaly with hepatic steatosis. 4. No bowel obstruction or bowel wall thickening. Normal appendix 5. Mild prostamegaly. ACT 112: Negative or not required by law. The above report was generated using voice recognition software. It may contain grammatical, syntax o r spelling errors. Electronically signed by: Oliver Champion M.D. 01/12/2021 4:40 PM
--- NOTE | 2021-01-12 16:54 | XRay Report ---
XR chest 1V portable HISTORY: 55 years-old Male sepsis acute sepsis COMPARISON: Chest radiographs 12/15/2020 TECHNIQUE: Portable AP view of the chest FINDINGS: Cardiomediastinal and hilar silhouettes are unchanged. Mild right hemidiaphragmatic elevation. No pne umothorax, pleural effusion, airspace consolidation or overt pulmonary edema. No acute fracture. Dege nerative changes of the shoulders and spine. IMPRESSION: No acute process. ACT 112: Negative or not required by law. The above report was generated using voice recognition software. It may contain grammatical, syntax o r spelling errors. Electronically signed by: Oliver Champion M.D. 01/12/2021 4:53 PM
--- NOTE | 2021-01-12 16:54 | History & Physical Report ---
Date of Service January 12, 2021 Assessment & Plan (1) Sepsis: Plan: Lactate 2.5 NSS 2.4 L bolus, continue NSS @ 80ml/hr Empiric antibiotics with Zosyn Suspected urinary/pyelonephritis as source Follow up urine and blood cultures (2) Sepsis associated hypotension: Plan: As above, resolved with IV fluid resuscitation (3) Pyelonephritis of left kidney: Plan: Left CVA tenderness, despite UA relatively unremarkable given symptoms after laser lithotripsy in the setting of Farxiga without alternative source makes this most likely cause. No prostate tenderness on exam Treatment as above (4) S/P ureteral stent placement: (5) Type 2 diabetes mellitus: Plan: Hold Farxiga, recommend continuing to hold until UTI resolved and holding for future urological procedures in the future given increased risk of UTI on this medication Hold metofmrin and Trulicity Lantus 10 units BID Novolog: Goal BSG Range: Low 110 mg/dL, High 140 mg/dL Correction Factor: 25 mg/dL/unit Carbohydrate ratio = 9 g/unit BSGs ACHS if eating, q6h if npo Plan: VTE Prophylaxis - low risk, deferred Diet - T2DM Disposition - admit to med/tele Admission and Anticipated Discharge Date Admission Date: January 12, 2021 History of Present Illness Chief Complaint: Fever and chills Primary Care Provider: Jose Barba is a 55 year old male who presents to the ER with fever and c hills. He recently underwent laser lithotripsy for non-infected ureterolithiasis 6 days previously. Initial intervention for stones on December 19 with left ureteral stent insertion due to intractable renal colic pain however urine culture was negative at that time and he was not discharged with antibiotics. He reports after lithotripsy he starting to have shakes and feeling generally unwell. However yesterday he became much worse with fevers, chills, nausea, vomiting with maximum fever measured of 103 degrees Fahrenheit. He reports left flank/abdominal pain an intermittent sharp left testicular pain. He reports he was supposed to have his ureteral stent removed today and was to take Bactrim prior to the procedure but otherwise he hasn't been on antibiotics. He was seen by his PCP earlier today and took a urine sample and given ceftriaxone IM in the office but on discussion with urology it was recommended he comes to the ER for evaluation. He has continued to take Farxiga throughout and was not told to stop this however didn't take any of his regular medications this morning. In the ER he was markedly hypotensive with resolved with IV fluid resuscitation. WBC elevated at 16.86 and he was given Zosyn for antibiotic coverage for sepsis with presumed source of urine. He was referred to medicine for admission and ongoing management of sepsis. Allergies Allergy/AdvReac Type Severity Reaction Status Date / Time atorvastatin [From Lipitor] AdvReac Intermediate leg Verified 01/12/21 15:52 cramping Influenza Virus Vaccines AdvReac Intermediate Vomiting Verified 01/12/21 17:35 rosuvastatin [From Crestor] AdvReac Intermediate leg Verified 01/12/21 15:52 cramping Home Medications Medication Instructions Recorded Confirmed Type dulaglutide 1.5 mg/0.5 mL 3 mg SUBCUT WK 10/28/20 01/12/21 History subcutaneous pen injector (Trulicity) metformin 500 mg tablet 500 mg PO BID 12/13/20 01/12/21 History dapagliflozin 10 mg tablet 10 mg PO QAM 12/19/20 01/12/21 History (Farxiga) ibuprofen 200 mg tablet 400 mg PO Q6H PRN 12/19/20 01/12/21 History hydrocodone 5 mg-acetaminophen 325 1 tab PO BID PRN #20 tab 12/20/20 01/12/21 Rx mg tablet phenazopyridine 200 mg tablet 200 mg PO TID PRN #10 tab 12/23/20 01/12/21 Rx (Pyridium) tamsulosin 0.4 mg capsule 0.4 mg PO HS #30 cap 12/23/20 01/12/21 Rx acetaminophen 325 mg tablet 650 mg PO Q6H PRN 01/12/21 01/12/21 History (Tylenol) Past Med/Surg History Medical History Cardiac murmur as child CKD (chronic kidney disease) Diabetes mellitus, type 2 GERD (gastroesophageal reflux disease) no longer on meds Hyperlipidemia Intervertebral lumbar disc disorder Malignant neoplasm of left kidney kidney removed > Dec 2019 > [facility] > no chemo MRSA infection hx of > 5 yrs ago > to face Pancreatic cyst just monitoring Surgical History H/O discectomy L4-5 S1 H/O hernia repair H/O vasectomy History of colonoscopy History of cystoscopy with stent History of esophagogastroduodenoscopy (EGD) History of lithotripsy Family History Father Hypertension Stroke Heart disease Diabetes Mother Hypertension Heart disease Diabetes Grandmother (Paternal) Diabetes Social History Smoking Status: Never smoker Tobacco Type: Smokeless Tobacco (Dip or Chew) Second Hand Exposure: No; Hx Alcohol Use: No Hx Substance Use: No Preferred Language: Martiniquais Communication Ability: Effective Unit Supervisor Required: No Beliefs That Will Affect Care: None marital status: Current Living Situation: Spouse current occupational status: retired Feels Safe at Home: Yes Assistive Devices: Glasses Review of Systems Review of Systems: All systems reviewed & are unremarkable except as noted in HPI & below Physical Exam Constitutional: WD/WN, vitals as above + ill appearing Eyes: + anicteric sclerae; normal pupil size ENMT: Mouth: + dry oral mucous membranes Neck: trachea midline, no thyromegaly Respiratory: normal respiratory effort, lungs clear to auscultation Cardiovascular: RRR, no murmur, no edema Gastrointestinal (Abdomen): Inspection/Auscultation: normal bowel sounds Percussion/Palpation: + abdomen tender (left sided) and abdomen soft; no guarding and abdomen not rigid Musculoskeletal: no cyanosis or clubbing, extremities motor strength 5/5 Skin: no rashes, warm and dry Neurologic: moves all extremities and awake; not confused Psychiatric: A+Ox3, euthymic affect Genitourinary: + CVA tenderness (left); no testes abnormality (no pain on palpation of epidydimis), no testicular mass and no prostate abnormality (non tender) Results & Data Results & Data ([facility]) Vital Signs (Past 12 Hours) Vital Signs Temp Pulse Pulse Resp BP BP Pulse Ox 01/12/21 16:27 38.3 C H 119 H 22 90/49 L 94 01/12/21 15:16 39.5 C H 131 H 20 143/90 H 98 01/12/21 13:27 37.8 C H 121 H 20 117/73 95 Diagnostic Findings XR chest 1V portable HISTORY: 55 years-old Male sepsis acute sepsis COMPARISON: Chest radiographs 12/15/2020 TECHNIQUE: Portable AP view of the chest FINDINGS: Cardiomediastinal and hilar silhouettes are unchanged. Mild right hemidiaphragmatic elevation. No pneumothorax, pleural effusion, airspace consolidation or overt pulmonary edema. No acute fracture. Degenerative changes of the shoulders and spine. IMPRESSION: No acute process. ABDOMEN AND PELVIS CT WITHOUT CONTRAST CT DOSE: 599.67 mGy.cm HISTORY: Acute left-sided flank pain with fever febrile, L flank pain TECHNIQUE: Multiaxial CT images of the abdomen and pelvis were performed without contrast. A dose lowering technique was utilized adhering to the principles of ALARA. COMPARISON STUDY: CT abdomen and pelvis 12/19/2020 FINDINGS: The imaged inferior cardiac chambers are unremarkable. Clear lung bases. No pneumatosis or pneumoperitoneum. The spleen is enlarged measuring up to 15.3 cm in length. Unremarkable pancreas and adrenal glands. There is mild gallbladder distention. There is no cholelithiasis or biliary ductal dilation. Hepatic sammy atosis. Unchanged 1.8 cm hypodense focus of the right hepatic lobe. The angelo hepatis, possibly a cyst. Numerous right greater than left nonobstructing renal calculi are redemonstrated measuring up to approximately 4 mm on the right and 4 mm on the left. Postoperative changes of the left kidney are redemonstrated. Probable small cyst of the interpolar left kidney. There is moderate left-sided hyd roureteronephrosis with associated perinephric and periureteral stranding. A left ureteral stent appears to be in satisfactory positioning. No residual ureteral calculi are identified. Mild urinary bladder wall thickening with partial distention. Prostamegaly. Small fat filled right inguinal hernia. Aorta and IVC are unremarkable. There is no adenopathy. No bowel obstruction or bowel wall thickening. There is mild fecal retention. Normal appendix. Unremarkable soft tissues. Degenerative changes of the spine, pelvis and hips. IMPRESSION: 1. Moderate left-sided hydroureteronephrosis with satisfactory positioning of the left ureteral stent.. There are no residual ureteral calculi identified. 2. Nonobstructing bilateral nephrolithiasis redemonstrated 3. Hepatosplenomegaly with hepatic steatosis. 4. No bowel obstruction or bowel wall thickening. Normal appendix 5. Mild prostamegaly. Medications Administered ER Medications Given: NSS 2.4 L bolus Zosyn 4.5g IV Ondansetron 4mg IV Code Status & VTE Plan Code Status Full VTE Prophylaxis Plan VTE Prophylaxis will be ordered: No Reason for no VTE drug order: Treatment not indicated Reason for no VTE mechanical prophylaxis: Treatment not indicated PG Care Time/CCT Total # of Minutes Spent Total Time Spent with Patient: Total time spent is greater than 50% in coordination of care (as documented) at patient's floor/unit and/or counseling patient: Coding Level of Care Code 47910 Initial Inpt Care Lvl 3 Diagnoses Sepsis A41.9 Sepsis associated hypotension A41.9; I95.9 Type 2 diabetes mellitus E11.9 S/P ureteral stent placement Z96.0 Pyelonephritis of left kidney N12
[2021-01-12] MEDS ORDERED: INSULIN ASPART 100 UNITS/ML 3 ML PEN SC ONE (17:45)
--- NOTE | 2021-01-12 19:18 | Urology Consultation ---
Date of Consultation January 12, 2021 Assessment & Plan (1) Sepsis: (2) S/P ureteral stent placement: 55-year-old male who is status post left ureteroscopy for stone treatment on 01/06/2021. He was scheduled to have his stent removed in clinic today, however developed fevers which prompted a visit to his PCP where he was then sent to the emergency department. Findings are concerning for urinary sepsis with an appropriately positioned left ureteral stent in place. In the setting of urinary tract infection with an appropriately positioned ureteral stent, recommend Cedillo catheter placement and broad-spectrum antibiotics. No indication to remove stent as this could cause obstruction in an infected system which would cause the patient to clinically worsen. Cedillo catheter helps with decompression and drainage of suspected infected urine. Recommend admission to medicine service Patient can have diet as no procedure planned in near future Once culture data comes back, urology will reschedule stent removal. This will likely occur 7 to 14 days out from today. Urology to follow peripherally History of Present Illness Reason for Consultation: Concern for urinary sepsis with indwelling left ureteral stent History of Present Illness Pleasant 55-year-old gentleman who was sent to the emergency department from his PCPs office with fevers earlier today. He is status post cystoscopy with left ureteroscopy, laser lithotripsy, basket stone extraction and left ureteral stent exchange by Dr. Liz on 01/06/2021. He was scheduled to have his stent removed in clinic today. His preoperative urine culture was negative for growth. Patient was seen in his PCPs office today and it sounds as if he was given Rocephin. He was then sent to the emergency department. He was found to be febrile up to 39.5 and tachycardic to the 130s. Blood pressures were as low as 90 systolic. Labs were significant for a leukocytosis of 16.8, sodium of 133, creatinine of 1.68 up from a baseline of 1.2-1.3. The urinalysis was negative for nitrites, negative for leukocyte esterase, 10-30 WBCs, 5-10 RBCs and no bacteria. This may appear sterile as he was given antibiotics earlier today. I reviewed his CT scan of the abdomen pelvis which shows mild left hydronephrosis with appropriately positioned stent. There is some stranding around the left kidney and the ureter. There is bilateral nonobstructing nephrolithiasis. A chest x-ray was negative. He received Zosyn in the emergency department. The patient reported that he had intermittent chills since his procedure that worsened yesterday. He developed fevers and overall general malaise which prompted the visit to his doctor today as he was concerned he may have Covid. He denies any worsening urinary symptoms. Allergies Allergy/AdvReac Type Severity Reaction Status Date / Time atorvastatin [From Lipitor] AdvReac Intermediate leg Verified 01/12/21 15:52 cramping Influenza Virus Vaccines AdvReac Intermediate Vomiting Verified 01/12/21 17:35 rosuvastatin [From Crestor] AdvReac Intermediate leg Verified 01/12/21 15:52 cramping Home Medications Medication Instructions Recorded Confirmed Type dulaglutide 1.5 mg/0.5 mL 3 mg SUBCUT WK 10/28/20 01/12/21 History subcutaneous pen injector (Trulicity) metformin 500 mg tablet 500 mg PO BID 12/13/20 01/12/21 History dapagliflozin 10 mg tablet 10 mg PO QAM 12/19/20 01/12/21 History (Farxiga) ibuprofen 200 mg tablet 400 mg PO Q6H PRN 12/19/20 01/12/21 History hydrocodone 5 mg-acetaminophen 325 1 tab PO BID PRN #20 tab 12/20/20 01/12/21 Rx mg tablet phenazopyridine 200 mg tablet 200 mg PO TID PRN #10 tab 12/23/20 01/12/21 Rx (Pyridium) tamsulosin 0.4 mg capsule 0.4 mg PO HS #30 cap 12/23/20 01/12/21 Rx acetaminophen 325 mg tablet 650 mg PO Q6H PRN 01/12/21 01/12/21 History (Tylenol) Patient History Medical History Cardiac murmur as child CKD (chronic kidney disease) Diabetes mellitus, type 2 GERD (gastroesophageal reflux disease) no longer on meds Hyperlipidemia Intervertebral lumbar disc disorder Malignant neoplasm of left kidney kidney removed > Dec 2019 > [facility] > no chemo MRSA infection hx of > 5 yrs ago > to face Pancreatic cyst just monitoring Surgical History H/O discectomy L4-5 S1 H/O hernia repair H/O vasectomy History of colonoscopy History of cystoscopy with stent History of esophagogastroduodenoscopy (EGD) History of lithotripsy Family History Father Hypertension Stroke Heart disease Diabetes Mother Hypertension Heart disease Diabetes Grandmother (Paternal) Diabetes Social History Smoking Status: Never smoker Tobacco Type: Smokeless Tobacco (Dip or Chew) Second Hand Exposure: No; Hx Alcohol Use: No Hx Substance Use: No Preferred Language: Singaporean Communication Ability: Effective Towel Inspector Required: No Beliefs That Will Affect Care: None marital status: Current Living Situation: Spouse current occupational status: retired Feels Safe at Home: Yes Assistive Devices: Glasses Review of Systems Review of Systems: 14 point review of systems negative outside of what is listed above in HPI Physical Exam Physical Exam: General: Alert and oriented, no acute distress HEENT: Normocephalic, mucous membranes moist Cardiovascular: Regular rate Pulmonary: Nonlabored respirations Abdomen: Nondistended, nontender : Mild left CVA tenderness. Extremities: Moves all 4 spontaneously Neuro: No gross deficits Skin: Warm, dry, no rashes noted Results & Data ([facility]) Vital Signs (Past 12 Hours) Vital Signs Temp Pulse Pulse Resp BP BP Pulse Ox 01/12/21 17:45 110 H 20 116/82 92 01/12/21 17:30 114 H 24 124/62 96 01/12/21 17:15 111 H 24 102/61 94 01/12/21 17:00 115 H 22 112/52 L 95 01/12/21 16:45 117 H 13 110/70 95 01/12/21 16:30 119 H 19 91/49 L 96 01/12/21 16:27 38.3 C H 119 H 22 90/49 L 94 01/12/21 16:22 124 H 17 94 01/12/21 16:00 127 H 18 96 01/12/21 15:45 125 H 14 95 01/12/21 15:30 127 H 22 140/82 93 01/12/21 15:16 39.5 C H 131 H 20 143/90 H 98 01/12/21 15:15 132 H 16 143/90 H 99 01/12/21 13:27 37.8 C H 121 H 20 117/73 95 PG Care Time/CCT Total # of Minutes Spent Total Time Spent with Patient: Total time spent is greater than 50% in coordination of care (as documented) at patient's floor/unit and/or counseling patient: [place] [address] Inpt Consult Level 5 Patient Type New History Comprehensive Exam Comprehensive Medical Decision Making Moderate Complexity Diagnoses Sepsis A41.9 S/P ureteral stent placement Z96.0
[2021-01-12] MEDS ORDERED: GLUCOSE 10 TABS/TUBE PO PRN (19:58)
[2021-01-12] MEDS ORDERED: PHENAZOPYRIDINE HCL 200 MG TAB PO PRN (19:58)
[2021-01-12] MEDS ORDERED: ALUMINUM/MAGNESIUM SUSP 30 ML UDC PO PRN (19:58)
[2021-01-12] MEDS ORDERED: POLYETHYLENE (MIRALAX) 17 GM PACK PO PRN (19:58)
[2021-01-12] MEDS ORDERED: GLUCAGON FOR INJ 1 MG VIAL SQ PRN (19:58)
[2021-01-12] MEDS ORDERED: DEXTROSE 50% 50 ML SYRINGE IV PRN (19:58)
[2021-01-12] MEDS ORDERED: ONDANSETRON INJ 2 MG/ML 2 ML VIAL IV PRN (19:58)
[2021-01-12] MEDS ORDERED: GLUCOSE 40% GEL 15 GM TUBE PO PRN (19:58)
[2021-01-12] MEDS ORDERED: CARBOHYDRATES FOR HYPOGLYCEMIA PO PRN (19:58)
[2021-01-12] MEDS: PIPERACILLIN/TAZOBACTAM 3.375 GM in DEXTROSE 5% 100 ML IV SCH (21:21)
[2021-01-12] MEDS: INSULIN ASPART 100 UNITS/ML 3 ML PEN SC SCH (21:21)
[2021-01-12] MEDS: INSULIN GLARGINE SOLOSTAR 100 UNITS/ML 3 ML PEN SC SCH (21:21)
[2021-01-12] MEDS: ACETAMINOPHEN 325 MG TAB PO PRN (21:24)
[2021-01-12] MEDS: TAMSULOSIN HCL 0.4 MG CAP PO SCH (21:24)
[2021-01-13 05:04] LABS: Basophils # (auto) 0.01 K/uL (0-0.2); Basophils % (auto) 0.1 %; Hematocrit (blood only) 38.2 % (42-52); Hemoglobin 13.1 g/dL (14.0-18.0); Immature Granulocytes # (auto) 0.05 K/uL (0.00-0.02); Immature Granulocytes % (auto) 0.3 %; Lymphocytes # (auto) 1.01 K/uL (1.2-3.4); Lymphocytes % (auto) 6.4 %; Mean Corpuscular Hemoglobin 28.4 pg (25-34); Mean Corpuscular Hgb Conc 34.3 g/dL (32-36); Mean Corpuscular Volume 82.9 fL (80-100); Mean Platelet Volume 9.4 fL (7.4-10.4); Monocytes # (auto) 1.31 K/uL (0.11-0.59); Monocytes % (auto) 8.3 %; Neutrophils # (auto) 13.41 K/uL (1.4-6.5); Neutrophils % (auto) 84.9 %; Platelet Count 148 K/uL (130-400); RDW Coefficient of Variation 13.9 % (11.5-14.5); Red Blood Count 4.61 M/uL (4.7-6.1); White Blood Count 15.79 K/uL (4.8-10.8)
[2021-01-13 05:35] LABS: BUN Creatinine Ratio 17.9 (10-20); Calcium 8.8 mg/dl (8.5-10.1); Creatinine Clr Calc Pharmacy 59.2 ml/min; Est GFR (African American) 58.1 ml/min; Est GFR (Non-African American) 50.1 ml/min; Potassium 4.2 mmol/L (3.5-5.1)
[2021-01-13] MEDS: PIPERACILLIN/TAZOBACTAM 3.375 GM in DEXTROSE 5% 100 ML IV SCH ×3 (05:59→21:17)
[2021-01-13] MEDS: INSULIN ASPART 100 UNITS/ML 3 ML PEN SC SCH ×4 (08:11→20:19)
[2021-01-13] MEDS: INSULIN GLARGINE SOLOSTAR 100 UNITS/ML 3 ML PEN SC SCH ×2 (08:11→20:21)
[2021-01-13] MEDS: ACETAMINOPHEN 325 MG TAB PO PRN ×2 (08:17→16:41)
[2021-01-13] MEDS ORDERED: LACTATED RINGER'S 1,000 ML IV ONE (08:36)
--- NOTE | 2021-01-13 09:32 | Hospitalist Progress Note ---
Date of Service January 13, 2021 Assessment & Plan (1) Sepsis: Plan: Lactate 2.5 NSS 2.4 L bolus, continue NSS @ 80ml/hr Empiric antibiotics with Zosyn Suspected urinary/pyelonephritis as source Follow up urine and blood cultures 01/13/21- Resolving, remains with lower BP than normal so will continue with LR to support water loss secondary to fevers - GPC in culture- 1 bottle- will add Vancomycin with recent instrumentation and hospitalization, continue zosyn (2) Sepsis associated hypotension: Plan: As above, resolved with IV fluid resuscitation - as above (3) Pyelonephritis of left kidney: Plan: Left CVA tenderness, despite UA relatively unremarkable given symptoms after laser lithotripsy in the setting of Farxiga without alternative source makes this most likely cause. No prostate tenderness on exam Treatment as above - Appreciate urology following (4) S/P ureteral stent placement: (5) Type 2 diabetes mellitus: Plan: Hold Farxiga, recommend continuing to hold until UTI resolved and holding for future urological procedures in the future given increased risk of UTI on this medication Lantus 10 units BID Novolog: Goal BSG Range: Low 110 mg/dL, High 140 mg/dL Correction Factor: 25 mg/dL/unit Carbohydrate ratio = 9 g/unit BSGs ACHS if eating, q6h if npo - BG borderline overnight- will follow while on abx, if they decrease with infection being treated- if not will likely increase his basal insulin- CF changed to 20 (6) GERD (gastroesophageal reflux disease): Plan: No acute needs (7) Positive blood culture: Plan: As above- Zosyn will cover most, but currently can't exclude possible MRSA - D/C or continue vanc with speciation - GPC- no murmur noted on exam Plan: VTE Prophylaxis - low risk, deferred Diet - T2DM Disposition - admit to med/tele Admission and Anticipated Discharge Date Admission Date: January 12, 2021 Subjective Patient subjectively states he feels better, but remains with fevers throughout the night. He is s/p ureteroscopy with stent placement on 01/06/21. He was admitted for sepsis with presumed urinary course. Today his blood culture returned positive for 1 bottle for GPC, will place on Vancomycin at this time secondary to recent hospitalization and instrumentation. MRSA swab also sent. Will send biomarkers 72 hours after ABX initiation and follow. Clinically looks better. Follow BG tonight for possible adjustment of his basal insulin. BG 160-200s in 24 hours. Review of Systems Review of Systems: REVIEW OF SYSTEMS: Constitutional: (+) fever, sweats or chills Eyes: No diplopia, no worsening or blurred vision ENT: normal hearing, no trouble swallowing Respiratory: No cough, sputum, dyspnea at rest or on exertion Cardiovascular: No chest pain, tightness or palpitations Abdomen: No pain, nausea, vomiting, diarrhea or constipation Musculoskeletal: right groin pain, and right CVA joint pain, calf pain, swelling Neurologic: No weakness, numbness/tingling, or balance problems Psychiatric: No anxiety or depression Skin: No rash or itch Physical Exam Physical Exam: PHYSICAL EXAM: General: awake, alert, no apparent distress Head: Normocephalic, atraumatic ENT: PERRL, EOMI, no pharyngeal exudate, mucous membranes moist Neuro: AAO x 3, speech clear and appropriate, strength intact bilaterally 5/5, sensation intact and equal all extremities and dermatomes, no pronator drift Chest: equal rise and fall of the chest, no accessory muscle use, no heaves or thrills, Clear to auscultation, on room air, Cardiac: Regular rate and rhythm, telemetry reviewed, skin warm dry, cap refill <3 seconds, peripheral pulses +2 no JVD, no murmur, no edema GI: NABS x 4 quadrants, soft, nontender to palpation, no rebound, guarding or tenderness : Spontaneously voiding, no pain, right CVA tenderness, Extremities: Normal inspection, no peripheral edema or erythema, calfs nontender to palpation Psych: Normal mood and affect Skin: no rash or erythema Results & Data Results & Data ([facility]) Vital Signs (Past 12 Hours) Vital Signs Temp Pulse Resp BP Pulse Ox 01/13/21 03:06 36.6 C 94 H 18 100/60 97 01/12/21 22:39 37.3 C 108 H 18 99/67 L 95 Laboratory Results Abnormal lab results 01/12/21 01/12/21 01/12/21 Range/Units 14:16 14:16 14:16 WBC 16.86 H (4.8-10.8) K/uL RBC (4.7-6.1) M/uL Hgb (14.0-18.0) g/dL Hct (42-52) % Neut # (Auto) 14.46 H (1.4-6.5) K/uL Lymph # (Auto) 0.78 L (1.2-3.4) K/uL Liberty # (Auto) 1.57 H (0.11-0.59) K/uL Immature Gran # (Auto) 0.03 H (0.00-0.02) K/uL Sodium 133 L (136-145) mmol/L BUN 25 H (7-18) mg/dl Creatinine 1.68 H (0.6-1.4) mg/dl Glucose 232 H (70-99) mg/dl POC Glucose (70-99) mg/dl Lactate (0.4-2.0) mmol/L Total Bilirubin 1.4 H (0.2-1) mg/dl AST 9 L (15-37) U/L Globulin 4.4 H (2.5-4.0) gm/dl Albumin/Globulin Ratio 0.8 L (0.9-2) Procalcitonin (0-0.5) ng/ml Ur Specific [place] 1.039 H (1.000-1.030) Urine Protein 1+ H (Negative) Urine Glucose (UA) 3+ H (Negative) Urine Ketones 2+ H (Negative) Urine Blood 3+ H (Negative) Urine WBC (Auto) 10-30 H (0-5) /hpf Urine RBC (Auto) 5-10 H (0-4) /hpf 01/12/21 01/12/21 01/12/21 Range/Units 15:40 15:40 18:24 WBC (4.8-10.8) K/uL RBC (4.7-6.1) M/uL Hgb (14.0-18.0) g/dL Hct (42-52) % Neut # (Auto) (1.4-6.5) K/uL Lymph # (Auto) (1.2-3.4) K/uL Liberty # (Auto) (0.11-0.59) K/uL Immature Gran # (Auto) (0.00-0.02) K/uL Sodium (136-145) mmol/L BUN (7-18) mg/dl Creatinine (0.6-1.4) mg/dl Glucose (70-99) mg/dl POC Glucose 228 H (70-99) mg/dl Lactate 2.5 H* (0.4-2.0) mmol/L Total Bilirubin (0.2-1) mg/dl AST (15-37) U/L Globulin (2.5-4.0) gm/dl Albumin/Globulin Ratio (0.9-2) Procalcitonin 7.01 H (0-0.5) ng/ml Ur Specific [place] (1.000-1.030) Urine Protein (Negative) Urine Glucose (UA) (Negative) Urine Ketones (Negative) Urine Blood (Negative) Urine WBC (Auto) (0-5) /hpf Urine RBC (Auto) (0-4) /hpf 01/12/21 01/13/21 01/13/21 Range/Units 21:13 04:39 04:39 WBC 15.79 H (4.8-10.8) K/uL RBC 4.61 L (4.7-6.1) M/uL Hgb 13.1 L (14.0-18.0) g/dL Hct 38.2 L (42-52) % Neut # (Auto) 13.41 H (1.4-6.5) K/uL Lymph # (Auto) 1.01 L (1.2-3.4) K/uL Liberty # (Auto) 1.31 H (0.11-0.59) K/uL Immature Gran # (Auto) 0.05 H (0.00-0.02) K/uL Sodium (136-145) mmol/L BUN 27 H (7-18) mg/dl Creatinine 1.53 H (0.6-1.4) mg/dl Glucose 200 H (70-99) mg/dl POC Glucose 259 H (70-99) mg/dl Lactate (0.4-2.0) mmol/L Total Bilirubin (0.2-1) mg/dl AST (15-37) U/L Globulin (2.5-4.0) gm/dl Albumin/Globulin Ratio (0.9-2) Procalcitonin (0-0.5) ng/ml Ur Specific [place] (1.000-1.030) Urine Protein (Negative) Urine Glucose (UA) (Negative) Urine Ketones (Negative) Urine Blood (Negative) Urine WBC (Auto) (0-5) /hpf Urine RBC (Auto) (0-4) /hpf 01/13/21 Range/Units 07:19 WBC (4.8-10.8) K/uL RBC (4.7-6.1) M/uL Hgb (14.0-18.0) g/dL Hct (42-52) % Neut # (Auto) (1.4-6.5) K/uL Lymph # (Auto) (1.2-3.4) K/uL Liberty # (Auto) (0.11-0.59) K/uL Immature Gran # (Auto) (0.00-0.02) K/uL Sodium (136-145) mmol/L BUN (7-18) mg/dl Creatinine (0.6-1.4) mg/dl Glucose (70-99) mg/dl POC Glucose 165 H (70-99) mg/dl Lactate (0.4-2.0) mmol/L Total Bilirubin (0.2-1) mg/dl AST (15-37) U/L Globulin (2.5-4.0) gm/dl Albumin/Globulin Ratio (0.9-2) Procalcitonin (0-0.5) ng/ml Ur Specific [place] (1.000-1.030) Urine Protein (Negative) Urine Glucose (UA) (Negative) Urine Ketones (Negative) Urine Blood (Negative) Urine WBC (Auto) (0-5) /hpf Urine RBC (Auto) (0-4) /hpf Diagnostic Findings Abdomen/Pelvis CT 01/12/21 15:[address] WITHOUT CONTRAST CT DOSE: 599.67 mGy.cm HISTORY: Acute left-sided flank pain with fever febrile, L flank pain TECHNIQUE: Multiaxial CT images of the abdomen and pelvis were performed without contrast. A dose lowering technique was utilized adhering to the principles of ALARA. COMPARISON STUDY: CT abdomen and pelvis 12/19/2020 FINDINGS: The imaged inferior cardiac chambers are unremarkable. Clear lung bases. No pneumatosis or pneumoperitoneum. The spleen is enlarged measuring up to 15.3 cm in length. Unremarkable pancreas and adrenal glands. There is mild gallbladder distention. There is no cholelithiasis or biliary ductal dilation. Hepatic steatosis. Unchanged 1.8 cm hypodense focus of the right hepatic lobe. The angelo hepatis, possibly a cyst. Numerous right greater than left nonobstructing renal calculi are redemonstrated measuring up to approximately 4 mm on the right and 4 mm on the left. Postoperative changes of the left kidney are redemonstrated. Probable small cyst of the interpolar left kidney. There is moderate left-sided hydroureteronephrosis with associated perinephric and periureteral stranding. A left ureteral stent appears to be in satisfactory positioning. No residual ureteral calculi are identified. Mild urinary bladder wall thickening with partial distention. Prostamegaly. Small fat filled right inguinal hernia. Aorta and IVC are unremarkable. There is no adenopathy. No bowel obstruction or bowel wall thickening. There is mild fecal retention. Normal appendix. Unremarkable soft tissues. Degenerative changes of the spine, pelvis and hips. IMPRESSION: 1. Moderate left-sided hydroureteronephrosis with satisfactory positioning of the left ureteral stent.. There are no residual ureteral calculi identified. 2. Nonobstructing bilateral nephrolithiasis redemonstrated 3. Hepatosplenomegaly with hepatic steatosis. 4. No bowel obstruction or bowel wall thickening. Normal appendix 5. Mild prostamegaly. ACT 112: Negative or not required by law. The above report was generated using voice recognition software. It may contain grammatical, syntax or spelling errors. Electronically signed by: Oliver Champion M.D. 01/12/2021 4:40 PM Chest X-Ray 01/12/21 16:35 XR chest 1V portable HISTORY: 55 years-old Male sepsis acute sepsis COMPARISON: Chest radiographs 12/15/2020 TECHNIQUE: Portable AP view of the chest FINDINGS: Cardiomediastinal and hilar silhouettes are unchanged. Mild right hemidiaphragmatic elevation. No pneumothorax, pleural effusion, airspace consolidation or overt pulmonary edema. No acute fracture. Degenerative changes of the shoulders and spine. IMPRESSION: No acute process. ACT 112: Negative or not required by law. The above report was generated using voice recognition software. It may contain grammatical, syntax or spelling errors. Electronically signed by: Oliver Champion M.D. 01/12/2021 4:53 PM Medications Administered Acetaminophen (Acetaminophen 325 Mg Tab) 650 mg PO Q4H PRN PRN Reason: Pain or Fever Stop: 02/11/21 17:11 Last Admin: 01/13/21 08:17 Dose: 650 mg Documented by: [id number] Admin: 01/12/21 21:24 Dose: 650 mg Documented by: [id number] Piperacillin Sod/Tazobactam (Sod 3.375 gm/ Dextrose) 115 mls @ 28.75 mls/hr IV Q8 CHANDNI; Protocol Stop: 01/14/21 13:59 Last Admin: 01/13/21 05:59 Dose: 28.8 mls/hr Documented by: [id number] Infusion: 01/13/21 01:32 Dose: 0 mls/hr Documented by: [id number] Admin: 01/12/21 21:21 Dose: 28.8 mls/hr Documented by: [id number] Lactated Ringer's (Lr) 1,000 mls @ 90 mls/hr IV .Q11H7M ONE Stop: 01/13/21 19:42 Last Admin: 01/13/21 08:58 Dose: 90 mls/hr Documented by: [id number] Insulin Aspart (Insulin Aspart 100 Units/Ml 3 Ml Pen) 0 units SC ACHS CHANDNI Stop: 02/11/21 20:59 Last Admin: 01/13/21 08:11 Dose: 8 units Documented by: [id number] Cosigned by: [id number] Admin: 01/12/21 21:21 Dose: 5 units Documented by: [id number] Cosigned by: [id number] Insulin Glargine (Insulin Glargine Solostar 100 Units/Ml 3 Ml Pen) 10 units SC BID [facility] Stop: 02/11/21 20:59 Last Admin: 01/13/21 08:11 Dose: 10 units Documented by: [id number] Cosigned by: [id number] Admin: 01/12/21 21:21 Dose: 10 units Documented by: [id number] Cosigned by: [id number] Tamsulosin HCl (Tamsulosin Hcl 0.4 Mg Cap) 0.4 mg PO HS CHANDNI Stop: 02/11/21 20:59 Last Admin: 01/12/21 21:24 Dose: 0.4 mg Documented by: [id number] Discontinued Medications Sodium Chloride (Nss 1000ml) 1,000 mls @ 999 mls/hr IV .Q1H1M CHANDNI Stop: 01/12/21 16:30 Last Infusion: 01/12/21 17:48 Dose: 0 mls/hr Documented by: [id number] Admin: 01/12/21 15:26 Dose: 999 mls/hr Documented by: [id number] Acetaminophen (Ofirmev) 1,000 mg in 100 mls @ 400 mls/hr IV NOW STA Stop: 01/12/21 15:38 Last Infusion: 01/12/21 17:09 Dose: 0 mls/hr Documented by: [id number] Admin: 01/12/21 16:10 Dose: 400 mls/hr Documented by: [id number] Ceftriaxone Sodium (Rocephin) 1,000 mg in 50 mls @ 100 mls/hr IV NOW STA Stop: 01/12/21 16:04 Last Admin: 01/12/21 16:09 Dose: Not Given Documented by: [id number] Piperacillin Sod/Tazobactam Sod (Zosyn) 4.5 gm in 120 mls @ 240 mls/hr IV NOW ONE Stop: 01/12/21 16:15 Last Infusion: 01/12/21 17:48 Dose: 0 mls/hr Documented by: [id number] Admin: 01/12/21 16:27 Dose: 240 mls/hr Documented by: [id number] Sodium Chloride (Nss 1000ml) 1,000 mls @ 999 mls/hr IV .Q1H1M CHANDNI Stop: 01/12/21 17:30 Last Infusion: 01/12/21 17:48 Dose: 0 mls/hr Documented by: [id number] Admin: 01/12/21 16:31 Dose: 999 mls/hr Documented by: [id number] Sodium Chloride (Nss 1000ml) 400 mls @ 999 mls/hr IV .Q25M ONE Stop: 01/12/21 16:53 Last Infusion: 01/12/21 19:04 Dose: 0 mls/hr Documented by: [id number] Admin: 01/12/21 17:48 Dose: 999 mls/hr Documented by: [id number] Sodium Chloride (Nss 1000ml) 1,000 mls @ 80 mls/hr IV .[id number] CHANDNI Stop: 01/13/21 22:59 Last Infusion: 01/13/21 09:16 Dose: 0 mls/hr Documented by: [id number] Infusion: 01/13/21 09:15 Dose: 0 mls/hr Documented by: [id number] Admin: 01/12/21 23:10 Dose: 80 mls/hr Documented by: [id number] Insulin Aspart (Insulin Aspart 100 Units/Ml 3 Ml Pen) 4 units SC 1745 ONE Stop: 01/12/21 17:46 Last Admin: 01/12/21 18:19 Dose: 4 units Documented by: [id number] Cosigned by: [id number] Ondansetron HCl (Ondansetron Inj 2 Mg/Ml 2 Ml Vial) 4 mg IV NOW STA Stop: 01/12/21 15:23 Last Admin: 01/12/21 15:26 Dose: 4 mg Documented by: [id number] PG Care Time/CCT Total # of Minutes Spent Total Time Spent with Patient: Total time spent is greater than 50% in coordination of care (as documented) at patient's floor/unit and/or counseling patient: Coding Level of Care Code 72092 Subseq Hosp Care Lvl 3 Diagnoses Sepsis A41.9 Sepsis associated hypotension A41.9; I95.9 Pyelonephritis of left kidney N12 S/P ureteral stent placement Z96.0 Type 2 diabetes mellitus E11.9 GERD (gastroesophageal reflux disease) K21.9 Positive blood culture R78.81
--- NOTE | 2021-01-13 09:52 | Urology Progress Note ---
Date of Service January 13, 2021 Assessment & Plan (1) Sepsis: (2) S/P ureteral stent placement: Plan: 55-year-old male s/p left ureteroscopy and stone treatment on 01/06/2021 with sepsis, likely of urinary origin. Stent remains in good position and is likely providing drainage for his left kidney. There was no significant hydronephrosis on CT scan. Would hold off any urologic intervention or stent exchange at this time. We will still plan for stent removal as an outpatient once his infection is appropriately cleared. He is still having occasional fevers and chills. Even despite appropriate drainage, it is not uncommon to see cyclic fevers for up to 72 hours with a pyelonephritis. Urine culture is still pending, 1/2 blood cultures preliminary growing gram- positive cocci in chains -he is currently on Zosyn and had previously received a dose of ceftriaxone. -Would consider adding gram-positive coverage, tailor based on culture results. Admission and Anticipated Discharge Date Admission Date: January 12, 2021 Blanka White tells me that this morning he is feeling slightly better, although still having intermittent fevers and shaking chills. His nausea and vomiting are improving. He still is fatigued. Review of Systems Review of Systems: Fevers and chills Gastrointestinal: Nausea and vomiting Genitourinary: + urinary frequency; no dysuria Physical Exam Physical Exam: Tired appearing, alert and oriented, NAD. Respiratory: Breathing comfortably on room air Cardiovascular: Rate/Rhythm: regular rate and regular rhythm Results & Data ([facility]) Vital Signs (Past 12 Hours) Vital Signs Temp Pulse Resp BP Pulse Ox 01/13/21 03:06 36.6 C 94 H 18 100/60 97 01/12/21 22:39 37.3 C 108 H 18 99/67 L 95 Laboratory Results WBC (01/13/2021): 15.79, slightly improved from yesterday. PG Care Time/CCT Total # of Minutes Spent Total Time Spent with Patient: Total time spent is greater than 50% in coordination of care (as documented) at patient's floor/unit and/or counseling patient: Coding Level of Care Code 36468 Subseq Hosp Care Lvl 2 Diagnoses Sepsis A41.9 S/P ureteral stent placement Z96.0
[2021-01-13] MEDS ORDERED: VANCOMYCIN CONSULT ACTIVE PRN ×2 (10:42)
[2021-01-13] MEDS ORDERED: VANCOMYCIN HCL 500 MG in SODIUM CHLORIDE 0.9% 250 ML IV SCH (10:45)
[2021-01-13] MEDS ORDERED: VANCOMYCIN HCL 1,750 MG in SODIUM CHLORIDE 0.9% 500 ML IV ONE (11:15)
--- NOTE | 2021-01-13 15:58 | Pharmacy Report ---
Pharmacy Vanc AUC Short Note - Date of Service January 13, 2021 - Assessment & Plan Assessment 55 year old M receiving Vancomycin/Zosyn for treatment of blood culture with gm + cocci in chains x1. Also presents with possible urinary source infection. Had recent ureteral stent placement. Patient was having fever(Tmax 39.5)/chills/shaking. Will continue to follow blood culture results. MRSA nasal swab was negative. Day # 2 of antimicrobial therapy. Plan Vancomycin * AUC/OH is the preferred PK/PD target for vancomycin * AUC guided dosing is effective and associated with decreased risk of nephrotoxicity compared to traditional trough targets * Trough level of 15 mcg/mL is predicted to achieve target AUC/OH of 400-600 mg/L.hr and may be associated with a 10 % risk of nephrotoxicity Pharmacy will continue to follow and will adjust dose/frequency as necessary. Thank you.
[2021-01-13] MEDS: TAMSULOSIN HCL 0.4 MG CAP PO SCH (20:18)
[2021-01-13] MEDS: HYDROCODONE/ACETAMOPHEN 5/325MG TAB PO PRN (22:48)
[2021-01-14] MEDS: ACETAMINOPHEN 325 MG TAB PO PRN ×3 (00:35→21:37)
[2021-01-14] MEDS: PIPERACILLIN/TAZOBACTAM 3.375 GM in DEXTROSE 5% 100 ML IV SCH (05:13)
[2021-01-14] MEDS ORDERED: VANCOMYCIN HCL 1,000 MG in SODIUM CHLORIDE 0.9% 250 ML IV SCH (06:00)
[2021-01-14 08:28] LABS: Hemoglobin 12.7 g/dL (14.0-18.0); Mean Corpuscular Hemoglobin 28.5 pg (25-34); Mean Corpuscular Hgb Conc 34.3 g/dL (32-36); Mean Corpuscular Volume 83.1 fL (80-100); Mean Platelet Volume 9.4 fL (7.4-10.4); Platelet Count 148 K/uL (130-400); RDW Coefficient of Variation 13.9 % (11.5-14.5); RDW Standard Deviation 42.5 fL (36.4-46.3); Red Blood Count 4.45 M/uL (4.7-6.1); White Blood Count 10.13 K/uL (4.8-10.8)
[2021-01-14 09:17] LABS: BUN Creatinine Ratio 16.5 (10-20); Calcium 8.2 mg/dl (8.5-10.1); Creatinine Clr Calc Pharmacy 71.3 ml/min; Est GFR (African American) 72.7 ml/min; Est GFR (Non-African American) 62.7 ml/min; Potassium 3.5 mmol/L (3.5-5.1)
--- NOTE | 2021-01-14 09:30 | Urology Progress Note ---
Date of Service January 14, 2021 Assessment & Plan (1) S/P ureteral stent placement: Plan: Stent remains in good position and is providing drainage for his left kidney. There was no significant hydronephrosis on CT scan. (2) Positive blood culture: Plan: Blood and urine cultures with probable Enterococcus, on vancomycin and Zosyn (3) Bilateral kidney stones: Plan: We reviewed his most recent CT scan, that there are still bilateral kidney stones. On the left side, the largest I measured 6 mm in the lower pole. This may be an aggregation of debris from recent laser lithotripsy. I explained that I would not remove the stent at this point due to the active infection, but that we could discuss whether or not to remove the stent or to perform a second-look ureteroscopy as an outpatient to completely clear the stones. We will continue to discuss this going forward. Plan: 55-year-old male s/p left ureteroscopy and stone treatment on 01/06/2021 with sepsis, likely of urinary origin. He is currently stable on vancomycin and Zosyn. Recommendations: Hold off on stent removal for now in the setting of active infection Continue antibiotics, can tailor as indicated based on culture results. Repeat blood cultures to ensure clearance of infection Urology will continue to discuss stent removal versus second look ureteroscopy. Admission and Anticipated Discharge Date Admission Date: January 12, 2021 Subjective Feeling okay this morning, still feeling tired and having some fevers and chills. Tolerating a diet without issues Has been up and moving around a little Review of Systems Constitutional: Intermittent fevers and chills Physical Exam Physical Exam: NAD, sitting in chair, tired appearing Respiratory: Breathing comfortably on room air Results & Data ([facility]) Vital Signs (Past 12 Hours) Vital Signs Temp Pulse Pulse Resp BP Pulse Ox 01/14/21 07:22 93 H 01/14/21 06:58 36.8 C 92 H 20 111/61 96 01/14/21 03:10 36.8 C 86 20 108/87 96 01/13/21 23:07 37.8 C H 97 H 20 95/53 L 94 01/13/21 22:18 92 H PG Care Time/CCT Total # of Minutes Spent Total Time Spent with Patient: Total time spent is greater than 50% in coordination of care (as documented) at patient's floor/unit and/or counseling patient: Coding Level of Care Code 09497 Subseq Hosp Care Lvl 2 Diagnoses S/P ureteral stent placement Z96.0 Positive blood culture R78.81 Bilateral kidney stones N20.0
[2021-01-14] MEDS: INSULIN GLARGINE SOLOSTAR 100 UNITS/ML 3 ML PEN SC SCH ×2 (09:37→21:38)
[2021-01-14] MEDS: INSULIN ASPART 100 UNITS/ML 3 ML PEN SC SCH ×4 (09:38→21:39)
--- NOTE | 2021-01-14 13:45 | Hospitalist Progress Note ---
Date of Service January 14, 2021 Assessment & Plan (1) Pyelonephritis of left kidney: Plan: Left CVA tenderness, despite UA relatively unremarkable. No prostate tenderness on exam. S/p left ureteroscopy for stone treatment on 01/06/2021. - Urine cx grew Enterococcus faecalis -> Amp sensitive. - Repeat blood cultures to ensure clearance. - Low risk for hematogenous spread. NOVA score is 0 (https://pubmed.ncbi.nlm.nih.gov/54239516/), making need for TAMMY unneeded. - Will get TTE to ensure no large valvular issues. - Switch to ampicillin from vanc/Zosyn. Discussed with ID; ok to switch to oral abx on discharge. (2) Sepsis: Plan: Due to pyelonephritis. - Resolved. (3) Sepsis associated hypotension: Plan: As above, resolved with IV fluid resuscitation - As above (4) S/P ureteral stent placement: Plan: Plan had been to remove this week. Urology will push it back 7-14 days. (5) Type 2 diabetes mellitus: Plan: A1c was 7.9% this month. - Hold Farxiga, recommend continuing to hold until UTI resolved and holding for future urological procedures in the future given increased risk of UTI on this medication. - Continue Lantus 10 units BID - Sliding scale insulin -> BS is 160 - 230 in last 24 hours. (6) GERD (gastroesophageal reflux disease): Plan: No acute needs Plan: SCDs - Low DVT risk per admission calculator Admission and Anticipated Discharge Date Admission Date: January 12, 2021 Subjective Still with some pain in the left flank and down to the groin. Reports no fevers/chills, chest pain, shortness of breath, abdominal pain, nausea, or vomiting. Physical Exam Constitutional: WD/WN, vitals as above Eyes: EOM intact bilaterally; no conjunctival abnormality ENMT: external ear and nose normal, oropharynx normal Neck: trachea midline, no thyromegaly normal visual inspection Respiratory: normal respiratory effort, lungs clear to auscultation no respiratory distress Cardiovascular: RRR, no murmur, no edema Gastrointestinal (Abdomen): Inspection/Auscultation: abdomen normal to inspection; abdomen not distended Musculoskeletal: no cyanosis or clubbing, extremities motor strength 5/5 Skin: no rashes, warm and dry Neurologic: moves all extremities and awake Psychiatric: Orientation: alert, oriented to person and cooperative Results & Data Results & Data ([facility]) Vital Signs (Past 12 Hours) Vital Signs Temp Pulse Pulse Resp BP Pulse Ox 01/14/21 11:44 37.1 C 90 20 110/73 97 01/14/21 07:22 93 H 01/14/21 06:58 36.8 C 92 H 20 111/61 96 01/14/21 03:10 36.8 C 86 20 108/87 96 PG Care Time/CCT Total # of Minutes Spent Total Time Spent with Patient: Total time spent is greater than 50% in coordination of care (as documented) at patient's floor/unit and/or counseling patient: Coding Level of Care Code 74634 Subseq Hosp Care Lvl 3 Diagnoses Sepsis A41.9 Sepsis associated hypotension A41.9; I95.9 Pyelonephritis of left kidney N12 S/P ureteral stent placement Z96.0 Type 2 diabetes mellitus E11.9 GERD (gastroesophageal reflux disease) K21.9
[2021-01-14] MEDS: AMPICILLIN 2,000 MG in SODIUM CHLOR 0.9% AD-VAN 100 ML IV SCH ×3 (14:46→21:37)
[2021-01-14] MEDS ORDERED: COUGH DROP (SUGAR FREE) LOZ 24 LOZ/1 BOX BUCCAL ONE (15:25)
[2021-01-14] MEDS: TAMSULOSIN HCL 0.4 MG CAP PO SCH (21:37)
[2021-01-15] MEDS: AMPICILLIN 2,000 MG in SODIUM CHLOR 0.9% AD-VAN 100 ML IV SCH ×6 (01:46→21:15)
[2021-01-15] MEDS: HYDROCODONE/ACETAMOPHEN 5/325MG TAB PO PRN ×3 (01:49→08:27)
[2021-01-15 06:39] LABS: BUN Creatinine Ratio 14.7 (10-20); Calcium 8.3 mg/dl (8.5-10.1); Creatinine Clr Calc Pharmacy 78.7 ml/min; Est GFR (Non-African American) 70.7 ml/min; Magnesium 2.1 mg/dl (1.8-2.4); Potassium 3.3 mmol/L (3.5-5.1)
[2021-01-15 06:50] LABS: Hematocrit (blood only) 37.4 % (42-52); Hemoglobin 12.8 g/dL (14.0-18.0); Mean Corpuscular Hemoglobin 28.2 pg (25-34); Mean Corpuscular Hgb Conc 34.2 g/dL (32-36); Mean Corpuscular Volume 82.4 fL (80-100); Mean Platelet Volume 9.6 fL (7.4-10.4); Platelet Count 170 K/uL (130-400); RDW Coefficient of Variation 13.7 % (11.5-14.5); RDW Standard Deviation 41.6 fL (36.4-46.3); Red Blood Count 4.54 M/uL (4.7-6.1); White Blood Count 7.48 K/uL (4.8-10.8)
[2021-01-15] MEDS: INSULIN GLARGINE SOLOSTAR 100 UNITS/ML 3 ML PEN SC SCH ×2 (08:20→21:14)
[2021-01-15] MEDS: INSULIN ASPART 100 UNITS/ML 3 ML PEN SC SCH ×4 (08:25→21:13)
--- NOTE | 2021-01-15 09:54 | XCELERA ---
[id number]
--- NOTE | 2021-01-15 10:21 | Urology Progress Note ---
Date of Service January 15, 2021 Assessment & Plan (1) S/P ureteral stent placement: Plan: Stent remains in good position and is providing drainage for his left kidney. We will plan for stent removal as an outpatient, after he has been on appropriate antibiotics for approximately 1 week. (2) Positive blood culture: Plan: Blood cultures growing Enterococcus faecalis, repeat blood cultures pending. He is currently on ampicillin, which is based on sensitivities from cultures. He remains hemodynamically stable, with overall improving lab values. (3) Bilateral kidney stones: Plan: We again briefly discussed his bilateral nephrolithiasis. Since the stones are in the lower pole, there is a lower chance of the moving and becoming obstructing. He was still like to have stent removal as opposed to repeat stone treatment. We will arrange for stent removal as an outpatient, and plan to repeat ultrasound for surveillance of the stones in approximately 6 months. Plan: Agree with continuing antibiotics and repeating blood cultures. Urology will arrange outpatient stent removal in the next 1 to 2 weeks. No further plan for urologic intervention while in hospital -we will sign off for now. Please contact urology if there are any additional concerns or changes in his condition. Admission and Anticipated Discharge Date Admission Date: January 12, 2021 Subjective Feeling better today, still occasional subjective fevers. Denies any flank pain. Still looking forward to having the stent removed. Review of Systems Constitutional: Occasional subjective fevers/chills Gastrointestinal: Tolerating a diet, no nausea or vomiting. Genitourinary: + as per Subjective / HPI (Voiding well) Physical Exam Physical Exam: Sitting up in bed, NAD Gastrointestinal (Abdomen): Soft, nontender Results & Data ([facility]) Vital Signs (Past 12 Hours) Vital Signs Temp Pulse Pulse Resp BP BP Pulse Ox 01/15/21 09:17 36.9 C 85 18 116/69 95 01/15/21 07:40 37.4 C 86 12 118/70 97 01/14/21 23:44 37.2 C 91 H 20 112/69 95 Laboratory Results CBC: Leukocytosis resolved (WBC 7.48), mild anemia (hemoglobin 12.8) BMP: Creatinine 1.15 Blood cultures (01/12/2021): Positive for Enterococcus faecalis in 1/2 samples. Repeat blood cultures pending PG Care Time/CCT Total # of Minutes Spent Total Time Spent with Patient: Total time spent is greater than 50% in coordination of care (as documented) at patient's floor/unit and/or counseling patient: Coding Level of Care Code 52318 Subseq Hosp Care Lvl 1 Diagnoses S/P ureteral stent placement Z96.0 Positive blood culture R78.81 Bilateral kidney stones N20.0
[2021-01-15] MEDS: ACETAMINOPHEN 325 MG TAB PO PRN ×3 (12:27→21:28)
--- NOTE | 2021-01-15 13:11 | Hospitalist Progress Note ---
Date of Service January 15, 2021 Assessment & Plan (1) Pyelonephritis of left kidney: Plan: Left CVA tenderness, despite UA relatively unremarkable. No prostate tenderness on exam. S/p left ureteroscopy for stone treatment on 01/06/2021. - Urine cx grew Enterococcus faecalis -> Amp sensitive. - Repeat blood cultures on 01/14 with NGTD. - TTE on 01/15 with no valvular issues. -> Low risk for hematogenous spread. NOVA score is 0 (https://pubmed.ncbi.nlm.nih.gov/72064981/), making need for TAMMY unneeded. - Switched to ampicillin from vanc/Zosyn. Discussed with ID; ok to switch to oral abx on discharge. Discussed with pharmacy -> Will do amoxicillin 1,000 mg PO QID and ciprofloxacin 500 mg PO Q12h x 2 weeks. (https://pubmed.ncbi.nlm.nih.gov/61988383/) (2) Sepsis: Plan: Due to pyelonephritis. - Resolved. (3) Sepsis associated hypotension: Plan: As above, resolved with IV fluid resuscitation - As above (4) S/P ureteral stent placement: Plan: Plan had been to remove this week. Urology will push it back 7-14 days. (5) Type 2 diabetes mellitus: Plan: A1c was 7.9% this month. - Hold Farxiga, recommend continuing to hold until UTI resolved and holding for future urological procedures in the future given increased risk of UTI on this medication. - Continue Lantus 10 units BID - Sliding scale insulin -> BS is 160 - 310 in last 24 hours. (6) GERD (gastroesophageal reflux disease): Plan: No acute needs Plan: SCDs - Low DVT risk per admission calculator Admission and Anticipated Discharge Date Admission Date: January 12, 2021 Subjective Another subjective fever last night. Didn't officially become febrile per record, but with subjective fevers. Reports no chest pain, shortness of breath, abdominal pain, nausea, or vomiting. Physical Exam Constitutional: WD/WN, vitals as above Eyes: EOM intact bilaterally; no conjunctival abnormality ENMT: external ear and nose normal, oropharynx normal Neck: trachea midline, no thyromegaly normal visual inspection Respiratory: normal respiratory effort, lungs clear to auscultation no respiratory distress Cardiovascular: RRR, no murmur, no edema Gastrointestinal (Abdomen): Inspection/Auscultation: abdomen normal to inspection; abdomen not distended Musculoskeletal: no cyanosis or clubbing, extremities motor strength 5/5 Skin: no rashes, warm and dry Neurologic: moves all extremities and awake Psychiatric: Orientation: alert, oriented to person and cooperative Results & Data Results & Data ([facility]) Vital Signs (Past 12 Hours) Vital Signs Temp Pulse Resp BP BP Pulse Ox 01/15/21 11:46 36.8 C 84 16 110/64 98 01/15/21 09:17 36.9 C 85 18 116/69 95 01/15/21 07:40 37.4 C 86 12 118/70 97 PG Care Time/CCT Total # of Minutes Spent Total Time Spent with Patient: Total time spent is greater than 50% in coordination of care (as documented) at patient's floor/unit and/or counseling patient: Coding Level of Care Code 32191 Subseq Hosp Care Lvl 2 Diagnoses Pyelonephritis of left kidney N12 Sepsis A41.9 Sepsis associated hypotension A41.9; I95.9 S/P ureteral stent placement Z96.0 Type 2 diabetes mellitus E11.9 GERD (gastroesophageal reflux disease) K21.9
[2021-01-15] MEDS: cefTRIAXone SODIUM 2,000 MG in DEXTROSE 5% 50 ML IV SCH (15:24)
[2021-01-15] MEDS ORDERED: VANCOMYCIN TROUGH ONE (17:30)
[2021-01-15] MEDS: TAMSULOSIN HCL 0.4 MG CAP PO SCH (21:15)
[2021-01-16] MEDS: AMPICILLIN 2,000 MG in SODIUM CHLOR 0.9% AD-VAN 100 ML IV SCH ×6 (02:01→23:12)
[2021-01-16] MEDS: HYDROCODONE/ACETAMOPHEN 5/325MG TAB PO PRN (02:10)
[2021-01-16] MEDS: cefTRIAXone SODIUM 2,000 MG in DEXTROSE 5% 50 ML IV SCH ×2 (02:41→16:26)
[2021-01-16 07:36] LABS: BUN Creatinine Ratio 10.5 (10-20); Calcium 8.5 mg/dl (8.5-10.1); Creatinine Clr Calc Pharmacy 78.7 ml/min; Est GFR (Non-African American) 70.7 ml/min; Potassium 3.3 mmol/L (3.5-5.1)
[2021-01-16] MEDS: INSULIN ASPART 100 UNITS/ML 3 ML PEN SC SCH ×4 (09:19→20:59)
[2021-01-16] MEDS: INSULIN GLARGINE SOLOSTAR 100 UNITS/ML 3 ML PEN SC SCH ×2 (09:24→20:59)
[2021-01-16] MEDS: ACETAMINOPHEN 325 MG TAB PO PRN ×2 (13:46→19:55)
--- NOTE | 2021-01-16 15:51 | Hospitalist Progress Note ---
Date of Service January 16, 2021 Assessment & Plan (1) Pyelonephritis of left kidney: Plan: Left CVA tenderness, despite UA relatively unremarkable. No prostate tenderness on exam. S/p left ureteroscopy for stone treatment on 01/06/2021. - Urine cx grew Enterococcus faecalis -> Amp sensitive. - Repeat blood cultures on 01/14 with continue E. faecalis. Repeats on 01/15 with no growth so far. - TTE on 01/15 with no valvular issues. Per Dr. Antony, images were very good for all valves, but he is willing to do TAMMY if requested by ID. - Switched to ampicillin from vanc/Zosyn on 01/14. Added ceftriaxone for synergy on 01/15 as he had continued fevers and new positive blood cultures. -> ID consulted for Sunday. Given prolonged fevers and multiple blood cultures, may need longer course of IV abx. Discuss with urology on Sunday re: removing stents given possibility of seeding. (2) Sepsis: Plan: Due to pyelonephritis. - Resolved. (3) Sepsis associated hypotension: Plan: As above, resolved with IV fluid resuscitation - As above (4) S/P ureteral stent placement: Plan: Plan had been to remove this week. Urology will push it back 7-14 days. (5) Type 2 diabetes mellitus: Plan: A1c was 7.9% this month. - Hold Farxiga, recommend continuing to hold until UTI resolved and holding for future urological procedures in the future given increased risk of UTI on this medication. - Continue Lantus 10 units BID - Sliding scale insulin -> BS is 190 - 310 in last 24 hours. Will tighten sliding scale. Blood sugar remains steady overnight, so I would like to avoid adjusting his basal insulin. (6) GERD (gastroesophageal reflux disease): Plan: No acute needs Plan: SCDs - Low DVT risk per admission calculator Admission and Anticipated Discharge Date Admission Date: January 12, 2021 Subjective No fevers/chills today. Did have some yesterday afternoon. Reports no chest pain, shortness of breath, abdominal pain, nausea, or vomiting. Physical Exam Constitutional: WD/WN, vitals as above Eyes: EOM intact bilaterally; no conjunctival abnormality ENMT: external ear and nose normal, oropharynx normal Neck: trachea midline, no thyromegaly normal visual inspection Respiratory: normal respiratory effort, lungs clear to auscultation no respiratory distress Cardiovascular: RRR, no murmur, no edema Gastrointestinal (Abdomen): Inspection/Auscultation: abdomen normal to inspection; abdomen not distended Musculoskeletal: no cyanosis or clubbing, extremities motor strength 5/5 Skin: no rashes, warm and dry Neurologic: moves all extremities and awake Psychiatric: Orientation: alert, oriented to person and cooperative Results & Data Results & Data ([facility]) Vital Signs (Past 12 Hours) Vital Signs Temp Pulse Resp BP Pulse Ox Pulse Ox 01/16/21 15:15 37.5 C 90 16 101/65 95 01/16/21 10:00 95 01/16/21 07:24 38.1 C H 90 16 119/66 96 PG Care Time/CCT Total # of Minutes Spent Total Time Spent with Patient: Total time spent is greater than 50% in coordination of care (as documented) at patient's floor/unit and/or counseling patient: Coding Level of Care Code 87215 Subseq Hosp Care Lvl 2 Diagnoses Pyelonephritis of left kidney N12 Sepsis A41.9 Sepsis associated hypotension A41.9; I95.9 S/P ureteral stent placement Z96.0 Type 2 diabetes mellitus E11.9 GERD (gastroesophageal reflux disease) K21.9
[2021-01-16] MEDS: TAMSULOSIN HCL 0.4 MG CAP PO SCH (21:00)
[2021-01-17] MEDS: AMPICILLIN 2,000 MG in SODIUM CHLOR 0.9% AD-VAN 100 ML IV SCH ×6 (02:01→21:57)
[2021-01-17] MEDS: cefTRIAXone SODIUM 2,000 MG in DEXTROSE 5% 50 ML IV SCH ×2 (02:30→18:52)
[2021-01-17 08:17] LABS: Hematocrit (blood only) 36.5 % (42-52); Hemoglobin 12.4 g/dL (14.0-18.0); Mean Corpuscular Hemoglobin 28.2 pg (25-34); Mean Platelet Volume 9.2 fL (7.4-10.4); Platelet Count 212 K/uL (130-400); RDW Coefficient of Variation 13.5 % (11.5-14.5); RDW Standard Deviation 41.3 fL (36.4-46.3); White Blood Count 8.62 K/uL (4.8-10.8)
[2021-01-17 08:55] LABS: BUN Creatinine Ratio 8.2 (10-20); Calcium 8.4 mg/dl (8.5-10.1); Creatinine Clr Calc Pharmacy 72.4 ml/min; Est GFR (African American) 74.1 ml/min; Magnesium 2.2 mg/dl (1.8-2.4); Potassium 3.3 mmol/L (3.5-5.1)
[2021-01-17] MEDS: INSULIN GLARGINE SOLOSTAR 100 UNITS/ML 3 ML PEN SC SCH ×2 (09:11→21:56)
[2021-01-17] MEDS: INSULIN ASPART 100 UNITS/ML 3 ML PEN SC SCH ×4 (09:11→21:56)
--- NOTE | 2021-01-17 18:24 | XRay Report ---
TWO VIEW CHEST CLINICAL HISTORY: Cough. FINDINGS: PA and lateral chest radiographs are compared to study dated 01/12/2021. The cardiomediasti nal silhouette is unremarkable. The lungs and pleural spaces are clear. There is no pneumothorax. Th e bony thorax appears intact. IMPRESSION: No active disease in the chest. ACT 112: Negative or not required by law. Electronically signed by: Harman Rapp M.D. 01/17/2021 6:23 PM
[2021-01-17] MEDS: ACETAMINOPHEN 325 MG TAB PO PRN (18:51)
--- NOTE | 2021-01-17 21:36 | Hospitalist Progress Note ---
Date of Service January 17, 2021 Assessment & Plan (1) Pyelonephritis of left kidney: Plan: Left CVA tenderness, despite UA relatively unremarkable. No prostate tenderness on exam. S/p left ureteroscopy for stone treatment on 01/06/2021. - Urine cx grew Enterococcus faecalis -> Amp sensitive. - Repeat blood cultures on 01/14 with continue E. faecalis. Repeats on 01/15 with no growth so far. - TTE on 01/15 with no valvular issues. Per Dr. Antony, images were very good for all valves, but he is willing to do TAMMY if requested by ID. - Switched to ampicillin from vanc/Zosyn on 01/14. Added ceftriaxone for synergy on 01/15 as he had continued fevers and new positive blood cultures. -> ID consulted for Sunday. Given prolonged fevers and multiple blood cultures, may need longer course of IV abx. Discuss with urology on Sunday re: removing stents given possibility of seeding. On 01/17 ID consult completed. Appears to agree with choice of antibiotics. Patient will require to continue antibiotics at home. will discuss with case management to obtain adequate home health staff. will require IV access: U/S peripheral guided line. (2) Sepsis: Plan: Due to pyelonephritis. - Resolved. (3) Sepsis associated hypotension: Plan: As above, resolved with IV fluid resuscitation - As above (4) S/P ureteral stent placement: Plan: Plan had been to remove this week. Urology will push it back 7-14 days. (5) Type 2 diabetes mellitus: Plan: A1c was 7.9% this month. - Hold Farxiga, recommend continuing to hold until UTI resolved and holding for future urological procedures in the future given increased risk of UTI on this medication. - Continue Lantus 10 units BID - Sliding scale insulin -> BS is 190 - 310 in last 24 hours. Will tighten sliding scale. Blood sugar remains steady overnight, so I would like to avoid adjusting his basal insulin. (6) GERD (gastroesophageal reflux disease): Plan: No acute needs Plan: SCDs - Low DVT risk per admission calculator Admission and Anticipated Discharge Date Admission Date: January 12, 2021 Subjective 55 yo m reports no new symptoms. Had multiple questions regarding plan of care. Review of Systems Review of Systems: All systems reviewed & are unremarkable except as noted in HPI & below Physical Exam Physical Exam: Constitutional: WD/WN, vitals as above Eyes: EOM intact bilaterally; no conjunctival abnormality ENMT: external ear and nose normal, oropharynx normal Neck: trachea midline, no thyromegaly normal visual inspection Respiratory: normal respiratory effort, lungs clear to auscultation no respiratory distress Cardiovascular: RRR, no murmur, no edema Gastrointestinal (Abdomen): Inspection/Auscultation: abdomen normal to inspection; abdomen not distended Musculoskeletal: no cyanosis or clubbing, extremities motor strength 5/5 Skin: no rashes, warm and dry Neurologic: moves all extremities and awake Psychiatric: Orientation: alert, oriented to person and cooperative Results & Data Results & Data ([facility]) Vital Signs (Past 12 Hours) Vital Signs Temp Pulse Resp BP Pulse Ox 01/17/21 16:55 37.2 C 88 16 110/68 96 PG Care Time/CCT Total # of Minutes Spent Total Time Spent with Patient: Total time spent is greater than 50% in coordination of care (as documented) at patient's floor/unit and/or counseling patient: Coding Level of Care Code 44885 Subseq Hosp Care Lvl 3 Diagnoses Pyelonephritis of left kidney N12 Sepsis A41.9 Sepsis associated hypotension A41.9; I95.9 S/P ureteral stent placement Z96.0 Type 2 diabetes mellitus E11.9 GERD (gastroesophageal reflux disease) K21.9 Time Spent (min) 35
[2021-01-17] MEDS: TAMSULOSIN HCL 0.4 MG CAP PO SCH (21:56)
[2021-01-17] MEDS: POTASSIUM CHLORIDE CRTAB 20 MEQ TABCR PO SCH (21:56)
[2021-01-18] MEDS: AMPICILLIN 2,000 MG in SODIUM CHLOR 0.9% AD-VAN 100 ML IV SCH ×6 (02:12→21:21)
[2021-01-18] MEDS: cefTRIAXone SODIUM 2,000 MG in DEXTROSE 5% 50 ML IV SCH ×2 (02:51→14:40)
[2021-01-18 07:52] LABS: Hematocrit (blood only) 34.5 % (42-52); Hemoglobin 11.7 g/dL (14.0-18.0); Mean Corpuscular Hemoglobin 28.1 pg (25-34); Mean Corpuscular Hgb Conc 33.9 g/dL (32-36); Mean Corpuscular Volume 82.7 fL (80-100); Mean Platelet Volume 9.1 fL (7.4-10.4); Platelet Count 261 K/uL (130-400); RDW Coefficient of Variation 13.6 % (11.5-14.5); RDW Standard Deviation 41.3 fL (36.4-46.3); Red Blood Count 4.17 M/uL (4.7-6.1); White Blood Count 7.16 K/uL (4.8-10.8)
[2021-01-18 08:25] LABS: BUN Creatinine Ratio 11.2 (10-20); Calcium 8.2 mg/dl (8.5-10.1); Creatinine Clr Calc Pharmacy 79.4 ml/min; Est GFR (African American) 82.9 ml/min; Est GFR (Non-African American) 71.5 ml/min; Potassium 3.6 mmol/L (3.5-5.1)
[2021-01-18] MEDS: INSULIN GLARGINE SOLOSTAR 100 UNITS/ML 3 ML PEN SC SCH ×2 (10:01→21:29)
[2021-01-18] MEDS: INSULIN ASPART 100 UNITS/ML 3 ML PEN SC SCH ×4 (10:02→21:28)
[2021-01-18] MEDS: POTASSIUM CHLORIDE CRTAB 20 MEQ TABCR PO SCH ×2 (10:19→21:26)
[2021-01-18] MEDS ORDERED: COUGH DROP (SUGAR FREE) LOZ 24 LOZ/1 BOX BUCCAL ONE (17:24)
[2021-01-18] MEDS: ACETAMINOPHEN 325 MG TAB PO PRN (18:35)
--- NOTE | 2021-01-18 20:55 | Hospitalist Progress Note ---
Date of Service January 18, 2021 Assessment & Plan (1) Pyelonephritis of left kidney: Plan: Left CVA tenderness, despite UA relatively unremarkable. No prostate tenderness on exam. S/p left ureteroscopy for stone treatment on 01/06/2021. - Urine cx grew Enterococcus faecalis -> Amp sensitive. - Repeat blood cultures on 01/14 with continue E. faecalis. Repeats on 01/15 with no growth so far. - TTE on 01/15 with no valvular issues. Per Dr. Antony, images were very good for all valves, but he is willing to do TAMMY if requested by ID. - Switched to ampicillin from vanc/Zosyn on 01/14. Added ceftriaxone for synergy on 01/15 as he had continued fevers and new positive blood cultures. -> ID consulted for Sunday. Given prolonged fevers and multiple blood cultures, may need longer course of IV abx. Discuss with urology on Sunday re: removing stents given possibility of seeding. On 01/17 ID consult completed. Appears to agree with choice of antibiotics. Patient will require to continue antibiotics at home. will discuss with case management to obtain adequate home health staff. will require IV access: U/S peripheral guided line. ON 01/18 Patient has been getting mild fevers. will continue current antibioitcs, but will obtain a TAMMY. Will also repeat blood cultures. (2) Sepsis: Plan: Due to pyelonephritis. - Resolved. (3) Sepsis associated hypotension: Plan: As above, resolved with IV fluid resuscitation - As above (4) S/P ureteral stent placement: Plan: Plan had been to remove this week. Urology will push it back 7-14 days. (5) Type 2 diabetes mellitus: Plan: A1c was 7.9% this month. - Hold Farxiga, recommend continuing to hold until UTI resolved and holding for future urological procedures in the future given increased risk of UTI on this medication. - Continue Lantus 10 units BID - Sliding scale insulin -> BS is 190 - 310 in last 24 hours. Will tighten sliding scale. Blood sugar remains steady overnight, so I would like to avoid adjusting his basal insulin. (6) GERD (gastroesophageal reflux disease): Plan: No acute needs Plan: SCDs - Low DVT risk per admission calculator Admission and Anticipated Discharge Date Admission Date: January 12, 2021 Subjective 55 yo male reports having subjective fever and chills. Review of Systems Review of Systems: All systems reviewed & are unremarkable except as noted in HPI & below Physical Exam Physical Exam: Constitutional: WD/WN, vitals as above Eyes: EOM intact bilaterally; no conjunctival abnormality ENMT: external ear and nose normal, oropharynx normal Neck: trachea midline, no thyromegaly normal visual inspection Respiratory: normal respiratory effort, lungs clear to auscultation no respiratory distress Cardiovascular: RRR, no murmur, no edema Gastrointestinal (Abdomen): Inspection/Auscultation: abdomen normal to inspection; abdomen not distended Musculoskeletal: no cyanosis or clubbing, extremities motor strength 5/5 Skin: no rashes, warm and dry Neurologic: moves all extremities and awake Psychiatric: Orientation: alert, oriented to person and cooperative Results & Data Results & Data ([facility]) Vital Signs (Past 12 Hours) Vital Signs Temp Pulse Resp BP Pulse Ox 01/18/21 15:15 37.9 C H 85 16 121/67 97 PG Care Time/CCT Total # of Minutes Spent Total Time Spent with Patient: Total time spent is greater than 50% in coordination of care (as documented) at patient's floor/unit and/or counseling patient: Coding Level of Care Code 46755 Subseq Hosp Care Lvl 2 Diagnoses Pyelonephritis of left kidney N12 Sepsis A41.9 Sepsis associated hypotension A41.9; I95.9 S/P ureteral stent placement Z96.0 Type 2 diabetes mellitus E11.9 GERD (gastroesophageal reflux disease) K21.9 Time Spent (min) 25
[2021-01-18] MEDS: TAMSULOSIN HCL 0.4 MG CAP PO SCH (21:25)
[2021-01-18] MEDS: ENOXAPARIN INJ 40 MG/0.4 ML SYR SQ SCH (22:13)
[2021-01-19] MEDS: AMPICILLIN 2,000 MG in SODIUM CHLOR 0.9% AD-VAN 100 ML IV SCH ×6 (01:39→22:01)
[2021-01-19] MEDS: cefTRIAXone SODIUM 2,000 MG in DEXTROSE 5% 50 ML IV SCH ×2 (02:19→15:44)
[2021-01-19 06:59] LABS: Hemoglobin 11.7 g/dL (14.0-18.0); Mean Corpuscular Hemoglobin 27.9 pg (25-34); Mean Corpuscular Hgb Conc 33.4 g/dL (32-36); Mean Corpuscular Volume 83.5 fL (80-100); Platelet Count 284 K/uL (130-400); RDW Coefficient of Variation 13.5 % (11.5-14.5); RDW Standard Deviation 40.9 fL (36.4-46.3); Red Blood Count 4.19 M/uL (4.7-6.1); White Blood Count 5.82 K/uL (4.8-10.8)
[2021-01-19 07:47] LABS: Albumin Level 2.2 gm/dl (3.4-5.0); BUN Creatinine Ratio 15.3 (10-20); Calcium 8.6 mg/dl (8.5-10.1); Creatinine Clr Calc Pharmacy 80.1 ml/min; Est GFR (African American) 83.8 ml/min; Est GFR (Non-African American) 72.3 ml/min; Potassium 3.7 mmol/L (3.5-5.1)
[2021-01-19 07:49] LABS: Albumin Globulin Ratio 0.5 (0.9-2); Bilirubin,Total 0.3 mg/dl (0.2-1); Globulin 4.4 gm/dl (2.5-4.0); Total Protein 6.6 gm/dl (6.4-8.2)
[2021-01-19] MEDS ORDERED: Nursing to Pharmacy Communication SCH ×2 (09:45→14:45)
[2021-01-19] MEDS: INSULIN ASPART 100 UNITS/ML 3 ML PEN SC SCH ×4 (09:49→20:48)
[2021-01-19] MEDS ORDERED: LANTUS PER UNIT CHARGE SQ ONE (09:56)
[2021-01-19] MEDS: INSULIN GLARGINE SOLOSTAR 100 UNITS/ML 3 ML PEN SC SCH ×2 (09:56→20:49)
[2021-01-19] MEDS ORDERED: INSULIN GLARGINE SOLOSTAR 100 UNITS/ML 3 ML PEN SC ONE (10:00)
[2021-01-19] MEDS ORDERED: INSULIN ASPART 100 UNITS/ML 3 ML PEN SC SCH (12:00)
[2021-01-19] MEDS ORDERED: BENZOCAINE/TETRACAIN/BUTAM 50 APPLN/5 GM CAN EXT ONE ×2 (13:34→13:37)
--- NOTE | 2021-01-19 13:37 | Pre Anesthesia Assessment ---
Date of Service January 19, 2021 Pre Sedation Assessment Vital Signs Temp Pulse Resp BP BP Pulse Ox 01/19/21 07:28 37.1 C 84 16 95/60 L 94 01/18/21 22:16 36.8 C 81 18 115/73 94 01/18/21 15:15 37.9 C H 85 16 121/67 97 Cardiovascular + regular rate Respiratory + respiratory effort normal Pre-Sedation Airway Assessment Smoking Status: Never smoker Hx Sleep Apnea: No Hx Difficult Intubation: No Short, Thick Neck: No Thyromental Distance: > or= 3.5 Finger Breadths Mallampati Class: III ASA: ASA2 Procedure Planning Contraindications for Sedation: none Current Medications Reviewed: Yes Notes The planned sedation has been discussed with the patient. Informed Consent was o btained. I have identified the patient, determined the appropriateness of sedation and have assessed the patient immediately prior to the procedure. All medicine(s) and interventions are by my order.
[2021-01-19] MEDS ORDERED: fentaNYL citrate 100 MCG/2 ML VIAL ONE (13:38)
[2021-01-19] MEDS ORDERED: MIDAZOLAM HCL 5 MG/ML 1 ML VIAL ONE (13:38)
[2021-01-19] MEDS ORDERED: NALOXONE HCL 0.4 MG/1 ML VIAL/CARP ONE (13:39)
[2021-01-19] MEDS ORDERED: FLUMAZENIL 0.1 MG/1 ML 10 ML VIAL IV ONE (13:39)
--- NOTE | 2021-01-19 14:02 | Post Anesthesia Assessment ---
Date of Service January 19, 2021 Post Sedation Assessment Vital Signs Temp Pulse Pulse Resp BP BP Pulse Ox 01/19/21 13:55 88 22 122/64 98 01/19/21 13:50 20 100 01/19/21 13:38 84 20 126/70 100 01/19/21 07:28 37.1 C 84 16 95/60 L 94 01/18/21 22:16 36.8 C 81 18 115/73 94 01/18/21 15:15 37.9 C H 85 16 121/67 97 Recovery Score Activity: Moves 4 extremities Respiration: Deep Breath/Cough Circulation: +/-20% PreAnes Value Consciousness: Fully Awake Oxygen Saturation: > 92% On Room Air Discharge Sedation Level of Care: Fast Track Phase II Post Sedation Plan On clinical assessment, the patient appears to have tolerated the sedation without complications. Patient is recovering as anticipated. Patient will continue to be monitored by nursing and may be discharged when sedation discharge criteria are met per below protocol. Upon Completions of procedure up to 15 minutes continue every 5 minute vital signs and the P.A.R. score; then discharge to a Phase I or Fast Track to Phase II per the following guidelines: * Discharge Patient to appropriate Phase II area if PAR is 8 or greater or return to pre- procedure baseline. The post - procedure orders will be as directed. * If PAR score is less than 8 or not return to pre-procedure baseline then patient will follow Phase I monitoring till PAR is reached for Phase II. The Phase I may be done in procedure room or may call to secure a Phase I area. * If naloxone or flumazenil are used for reversal, hold in Phase I for continued monitoring from when last reversal dose was given for a minimum of 60 minutes or longer pending the nurse and/or physician discretion of patient condition before discharge to Phase II. Please call the Sedation Physician to re-evaluate and complete post-note for discharge to Phase II area. Do NOT discharge from procedure sedation or Phase 1 until post- sedation evaluation note is complete by procedure /sedation MD Sedation Discharge Instructions to be given to the patient at discharge to home.
--- NOTE | 2021-01-19 14:27 | XCELERA ---
[id number]
[2021-01-19] MEDS: ACETAMINOPHEN 325 MG TAB PO PRN (16:31)
[2021-01-19] MEDS: ENOXAPARIN INJ 40 MG/0.4 ML SYR SQ SCH (20:00)
[2021-01-19] MEDS: TAMSULOSIN HCL 0.4 MG CAP PO SCH (20:01)
--- NOTE | 2021-01-19 22:49 | Hospitalist Progress Note ---
Date of Service January 19, 2021 Assessment & Plan (1) Pyelonephritis of left kidney: Plan: Left CVA tenderness, despite UA relatively unremarkable. No prostate tenderness on exam. S/p left ureteroscopy for stone treatment on 01/06/2021. - Urine cx grew Enterococcus faecalis -> Amp sensitive. - Repeat blood cultures on 01/14 with continue E. faecalis. Repeats on 01/15 with no growth so far. - TTE on 01/15 with no valvular issues. Per Dr. Antony, images were very good for all valves, but he is willing to do TAMMY if requested by ID. - Switched to ampicillin from vanc/Zosyn on 01/14. Added ceftriaxone for synergy on 01/15 as he had continued fevers and new positive blood cultures. -> ID consulted for Sunday. Given prolonged fevers and multiple blood cultures, may need longer course of IV abx. Discuss with urology on Sunday re: removing stents given possibility of seeding. On 01/17 ID consult completed. Appears to agree with choice of antibiotics. Patient will require to continue antibiotics at home. will discuss with case management to obtain adequate home health staff. will require IV access: U/S peripheral guided line. ON 01/18 Patient has been getting mild fevers. will continue current antibioitcs, but will obtain a TAMMY. Will also repeat blood cultures. On 01/19 TAMMY negative for vegetation. Continue above treatment, needs 14 days. awaiting approval from home health agency. (2) Sepsis: Plan: Due to pyelonephritis. - Resolved. (3) Sepsis associated hypotension: Plan: As above, resolved with IV fluid resuscitation - As above (4) S/P ureteral stent placement: Plan: Plan had been to remove this week. Urology will push it back 7-14 days. (5) Type 2 diabetes mellitus: Plan: A1c was 7.9% this month. - Hold Farxiga, recommend continuing to hold until UTI resolved and holding for future urological procedures in the future given increased risk of UTI on this medication. - Continue Lantus 10 units BID - Sliding scale insulin -> BS is 190 - 310 in last 24 hours. Will tighten sliding scale. Blood sugar remains steady overnight, so I would like to avoid adjusting his basal insulin. (6) GERD (gastroesophageal reflux disease): Plan: No acute needs Plan: SCDs - Low DVT risk per admission calculator Admission and Anticipated Discharge Date Admission Date: January 12, 2021 Subjective 55 yo male reports no new symptoms. He had chills yesterday but none today. Review of Systems Review of Systems: All systems reviewed & are unremarkable except as noted in HPI & below Physical Exam Physical Exam: Constitutional: WD/WN, vitals as above Eyes: EOM intact bilaterally; no conjunctival abnormality ENMT: external ear and nose normal, oropharynx normal Neck: trachea midline, no thyromegaly normal visual inspection Respiratory: normal respiratory effort, lungs clear to auscultation no respiratory distress Cardiovascular: RRR, no murmur, no edema Gastrointestinal (Abdomen): Inspection/Auscultation: abdomen normal to inspection; abdomen not distended Musculoskeletal: no cyanosis or clubbing, extremities motor strength 5/5 Skin: no rashes, warm and dry Neurologic: moves all extremities and awake Psychiatric: Orientation: alert, oriented to person and cooperative Results & Data Results & Data ([facility]) Vital Signs (Past 12 Hours) Vital Signs Temp Pulse Pulse Resp BP BP Pulse Ox 01/19/21 22:24 36.8 C 92 H 16 122/68 93 01/19/21 17:41 103 H 18 116/72 90 01/19/21 16:30 37.5 C 115 H 16 139/71 93 01/19/21 15:48 98 H 18 129/77 90 01/19/21 15:30 96 H 18 121/72 90 01/19/21 15:18 93 H 18 112/73 91 01/19/21 15:04 37.3 C 98 H 18 118/70 91 01/19/21 14:45 93 H 22 120/71 92 01/19/21 14:30 100 H 22 98/73 L 93 01/19/21 14:20 98 H 20 126/70 95 01/19/21 14:05 98 H 20 124/66 95 01/19/21 14:00 37.3 C 98 H 16 123/79 128/73 92 01/19/21 13:55 88 22 122/64 98 01/19/21 13:50 20 100 01/19/21 13:38 84 20 126/70 100 PG Care Time/CCT Total # of Minutes Spent Total Time Spent with Patient: Total time spent is greater than 50% in coordination of care (as documented) at patient's floor/unit and/or counseling patient: Coding Level of Care Code 65679 Subseq Hosp Care Lvl 2 Diagnoses Pyelonephritis of left kidney N12 Sepsis A41.9 Sepsis associated hypotension A41.9; I95.9 S/P ureteral stent placement Z96.0 Type 2 diabetes mellitus E11.9 GERD (gastroesophageal reflux disease) K21.9
[2021-01-20] MEDS: BENZONATATE 100 MG CAPSULE PO PRN ×2 (00:28→09:04)
[2021-01-20] MEDS: AMPICILLIN 2,000 MG in SODIUM CHLOR 0.9% AD-VAN 100 ML IV SCH ×6 (02:00→21:14)
[2021-01-20] MEDS: cefTRIAXone SODIUM 2,000 MG in DEXTROSE 5% 50 ML IV SCH ×2 (02:34→15:15)
[2021-01-20 03:26] LABS: Component 2 DNR; Source KIDNEY STONE
[2021-01-20] MEDS: INSULIN ASPART 100 UNITS/ML 3 ML PEN SC SCH ×4 (08:51→21:21)
[2021-01-20] MEDS: INSULIN GLARGINE SOLOSTAR 100 UNITS/ML 3 ML PEN SC SCH ×2 (08:52→21:20)
--- NOTE | 2021-01-20 13:53 | Procedure Note ---
Procedure Note Date of Service January 20, 2021 Coding Cystoscopy / Stent Removal Procedure performed by: Phoenix Liz Patient presenting for cystoscopy and stent removal after treatment of stone. We discussed the risks and benefits of stent removal. We discussed that he still has some small stones remaining in his left kidney, but they are in the lower pole, making them less likely to move and become a problem. There are also small enough that I do not think there would be contributing to recurrent urinary tract infections. Similarly he has some stones in his right kidney Patient was prepped with betadine and draped in standard fashion. A well- lubricated flexible cystoscope was inserted and cystoscopic graspers were used to grasp and remove the stent. There was [] encrustation of the stent. Patient tolerated the procedure well. Male (uncomplicated): Left Antibiotics: Other
--- NOTE | 2021-01-20 14:08 | Procedure Note ---
Procedure Note Date of Service January 20, 2021 Coding Additional Codes Billing Codes - 39867 Cysto Stent Rem: [id number] Cysto Stent Rem ([id number]) Cystoscopy / Stent Removal Procedure performed by: Phoenix Liz Patient presenting for cystoscopy and stent removal after treatment of stone. We discussed the risks and benefits of stent removal. We discussed that he still has some small stones remaining in his left kidney, but they are in the lower pole, making them less likely to move and become a problem by obstruction. They are also small enough that I do not think they would be contributing to recurrent urinary tract infections. Similarly he has some small stones in his right kidney. He expressed understanding and agreed to proceed with stent removal. Patient was prepped with betadine and draped in standard fashion. A well- lubricated flexible cystoscope was inserted and cystoscopic graspers were used to grasp and remove the stent. There was no encrustation of the stent. Patient tolerated the procedure well. Urology will arrange follow-up in the office to discuss further stone management and check-in. Male (uncomplicated): Left Antibiotics: Ceftriaxone and Other (ampicillin) Urology Billing Codes Billing Codes 62442 Cysto Stent Rem
[2021-01-20] MEDS: ACETAMINOPHEN 325 MG TAB PO PRN (16:15)
[2021-01-20] MEDS: TAMSULOSIN HCL 0.4 MG CAP PO SCH (21:19)
[2021-01-20] MEDS: ENOXAPARIN INJ 40 MG/0.4 ML SYR SQ SCH (21:19)
--- NOTE | 2021-01-20 22:54 | Hospitalist Progress Note ---
Date of Service January 20, 2021 Assessment & Plan (1) Pyelonephritis of left kidney: Plan: Left CVA tenderness, despite UA relatively unremarkable. No prostate tenderness on exam. S/p left ureteroscopy for stone treatment on 01/06/2021. - Urine cx grew Enterococcus faecalis -> Amp sensitive. - Repeat blood cultures on 01/14 with continue E. faecalis. Repeats on 01/15 with no growth so far. - TTE on 01/15 with no valvular issues. Per Dr. Antony, images were very good for all valves, but he is willing to do TAMMY if requested by ID. - Switched to ampicillin from vanc/Zosyn on 01/14. Added ceftriaxone for synergy on 01/15 as he had continued fevers and new positive blood cultures. -> ID consulted for Sunday. Given prolonged fevers and multiple blood cultures, may need longer course of IV abx. Discuss with urology on Sunday re: removing stents given possibility of seeding. On 01/17 ID consult completed. Appears to agree with choice of antibiotics. Patient will require to continue antibiotics at home. will discuss with case management to obtain adequate home health staff. will require IV access: U/S peripheral guided line. ON 01/18 Patient has been getting mild fevers. will continue current antibioitcs, but will obtain a TAMMY. Will also repeat blood cultures. On 01/19 TAMMY negative for vegetation. Continue above treatment, needs 14 days. awaiting approval from home health agency. 01/20 awaiting placement. (2) Sepsis: Plan: Due to pyelonephritis. - Resolved. (3) Sepsis associated hypotension: Plan: As above, resolved with IV fluid resuscitation - As above (4) S/P ureteral stent placement: Plan: Plan had been to remove this week. Urology will push it back 7-14 days. (5) Type 2 diabetes mellitus: Plan: A1c was 7.9% this month. - Hold Farxiga, recommend continuing to hold until UTI resolved and holding for future urological procedures in the future given increased risk of UTI on this medication. - Continue Lantus 10 units BID - Sliding scale insulin -> BS is 190 - 310 in last 24 hours. Will tighten sliding scale. Blood sugar remains steady overnight, so I would like to avoid adjusting his basal insulin. (6) GERD (gastroesophageal reflux disease): Plan: No acute needs Plan: SCDs - Low DVT risk per admission calculator Admission and Anticipated Discharge Date Admission Date: January 12, 2021 Subjective Patient reports no new complaints. Review of Systems Review of Systems: All systems reviewed & are unremarkable except as noted in HPI & below Physical Exam Physical Exam: Constitutional: WD/WN, vitals as above lying in bed comfortable. Results & Data Results & Data ([facility]) Vital Signs (Past 12 Hours) Vital Signs Temp Pulse Resp BP BP Pulse Ox 01/20/21 22:13 37.1 C 75 16 107/60 94 01/20/21 15:46 36.9 C 83 16 110/63 94 PG Care Time/CCT Total # of Minutes Spent Total Time Spent with Patient: Total time spent is greater than 50% in coordination of care (as documented) at patient's floor/unit and/or counseling patient: Coding Level of Care Code 03072 Subseq Hosp Care Lvl 1 Diagnoses Pyelonephritis of left kidney N12 Sepsis A41.9 Sepsis associated hypotension A41.9; I95.9 S/P ureteral stent placement Z96.0 Type 2 diabetes mellitus E11.9 GERD (gastroesophageal reflux disease) K21.9
[2021-01-21] MEDS: BENZONATATE 100 MG CAPSULE PO PRN ×3 (00:10→21:10)
[2021-01-21] MEDS: AMPICILLIN 2,000 MG in SODIUM CHLOR 0.9% AD-VAN 100 ML IV SCH ×6 (01:27→21:01)
[2021-01-21] MEDS: cefTRIAXone SODIUM 2,000 MG in DEXTROSE 5% 50 ML IV SCH ×2 (02:04→14:19)
[2021-01-21] MEDS: INSULIN GLARGINE SOLOSTAR 100 UNITS/ML 3 ML PEN SC SCH ×2 (09:40→21:00)
[2021-01-21] MEDS: INSULIN ASPART 100 UNITS/ML 3 ML PEN SC SCH ×4 (09:41→21:00)
[2021-01-21] MEDS: ACETAMINOPHEN 325 MG TAB PO PRN (17:42)
[2021-01-21] MEDS: TAMSULOSIN HCL 0.4 MG CAP PO SCH (21:00)
[2021-01-21] MEDS: ENOXAPARIN INJ 40 MG/0.4 ML SYR SQ SCH (21:00)
--- NOTE | 2021-01-21 21:55 | Hospitalist Progress Note ---
Date of Service January 21, 2021 Assessment & Plan (1) Pyelonephritis of left kidney: Plan: Left CVA tenderness, despite UA relatively unremarkable. No prostate tenderness on exam. S/p left ureteroscopy for stone treatment on 01/06/2021. - Urine cx grew Enterococcus faecalis -> Amp sensitive. - Repeat blood cultures on 01/14 with continue E. faecalis. Repeats on 01/15 with no growth so far. - TTE on 01/15 with no valvular issues. Per Dr. Antony, images were very good for all valves, but he is willing to do TAMMY if requested by ID. - Switched to ampicillin from vanc/Zosyn on 01/14. Added ceftriaxone for synergy on 01/15 as he had continued fevers and new positive blood cultures. -> ID consulted for Sunday. Given prolonged fevers and multiple blood cultures, may need longer course of IV abx. Discuss with urology on Sunday re: removing stents given possibility of seeding. On 01/17 ID consult completed. Appears to agree with choice of antibiotics. Patient will require to continue antibiotics at home. will discuss with case management to obtain adequate home health staff. will require IV access: U/S peripheral guided line. ON 01/18 Patient has been getting mild fevers. will continue current antibioitcs, but will obtain a TAMMY. Will also repeat blood cultures. On 01/19 TAMMY negative for vegetation. Continue above treatment, needs 14 days. awaiting approval from home health agency. 01/20 -01/21 awaiting home health agency for home antibiotics U/S guided peripheral line already placed, (2) Sepsis: Plan: Sepsis due to Enterococcus (pyelonephritis). - Resolved. (3) Sepsis associated hypotension: Plan: As above, resolved with IV fluid resuscitation - As above (4) S/P ureteral stent placement: Plan: Plan had been to remove this week. Urology will push it back 7-14 days. (5) Type 2 diabetes mellitus: Plan: A1c was 7.9% this month. - Hold Farxiga, recommend continuing to hold until UTI resolved and holding for future urological procedures in the future given increased risk of UTI on this medication. - Continue Lantus 10 units BID - Sliding scale insulin -> BS is 190 - 310 in last 24 hours. Will tighten sliding scale. Blood sugar remains steady overnight, so I would like to avoid adjusting his basal insulin. (6) GERD (gastroesophageal reflux disease): Plan: No acute needs (7) Acute kidney failure: Plan: Acute kidney failure, resolved \ Patient with sepsis and acute pyelonephritis presented with creatinine of 1.68 trending down to 1.13. Treatment: IV hydration, serial PRP, I&O (8) Hyponatremia: Plan: Hyponatremia, resolved Patient with sepsis and hypotension on admission had Na of 133 trending up to 138 with IV hydration Treatment: IV hydration, serial chemistries, I&O Plan: lovenox- DVT Admission and Anticipated Discharge Date Admission Date: January 12, 2021 Subjective Patient is resting comfortably. Physical Exam Physical Exam: Constitutional: WD/WN, vitals as above lying in bed comfortable. Results & Data Results & Data ([facility]) Vital Signs (Past 12 Hours) Vital Signs Temp Pulse Resp BP Pulse Ox 01/21/21 14:33 36.8 C 81 16 116/70 97 PG Care Time/CCT Total # of Minutes Spent Total Time Spent with Patient: Total time spent is greater than 50% in coordination of care (as documented) at patient's floor/unit and/or counseling patient: Coding Level of Care Code 50876 Subseq Hosp Care Lvl 2 Diagnoses Pyelonephritis of left kidney N12 Sepsis A41.9 Sepsis associated hypotension A41.9; I95.9 S/P ureteral stent placement Z96.0 Type 2 diabetes mellitus E11.9 GERD (gastroesophageal reflux disease) K21.9 Acute kidney failure N17.9 Hyponatremia E87.1
[2021-01-22] MEDS: AMPICILLIN 2,000 MG in SODIUM CHLOR 0.9% AD-VAN 100 ML IV SCH ×6 (02:51→21:08)
[2021-01-22] MEDS: BENZONATATE 100 MG CAPSULE PO PRN ×2 (02:51→22:03)
[2021-01-22] MEDS: cefTRIAXone SODIUM 2,000 MG in DEXTROSE 5% 50 ML IV SCH ×2 (03:29→15:10)
[2021-01-22] MEDS: INSULIN GLARGINE SOLOSTAR 100 UNITS/ML 3 ML PEN SC SCH ×2 (09:14→21:07)
[2021-01-22] MEDS: INSULIN ASPART 100 UNITS/ML 3 ML PEN SC SCH ×4 (09:15→21:07)
--- NOTE | 2021-01-22 15:08 | Hospitalist Progress Note ---
Date of Service January 22, 2021 Assessment & Plan (1) Pyelonephritis of left kidney: Plan: Left CVA tenderness, despite UA relatively unremarkable. No prostate tenderness on exam. S/p left ureteroscopy for stone treatment on 01/06/2021. - Urine cx grew Enterococcus faecalis -> Amp sensitive. - Repeat blood cultures on 01/14 with continue E. faecalis. Repeats on 01/15 with no growth so far. - TTE on 01/15 with no valvular issues. TAMMY negative on 01/19 - Switched to ampicillin from vanc/Zosyn on 01/14. Added ceftriaxone for synergy on 01/15 as he had continued fevers and new positive blood cultures. -> ID consulted. Given prolonged fevers and multiple blood cultures, may need longer course of IV abx. Discuss with urology re: removing stents given possibility of seeding. Anticipate removal in 1 to 2 weeks as noted below Will require 14 days of antibiotic treatment, ultrasound-guided peripheral line in place Awaiting home health set up for home antibiotics. Surveillance cultures remain normal TAMMY 01/19 - for vegetation (2) Sepsis: Plan: Sepsis due to Enterococcus (pyelonephritis). - Resolved. (3) Sepsis associated hypotension: Plan: As above, resolved with IV fluid resuscitation - As above (4) S/P ureteral stent placement: Plan: Per urology stent remaining in place, anticipate removal (5) Type 2 diabetes mellitus: Plan: A1c was 7.9% this month. - Hold Farxiga, recommend continuing to hold until UTI resolved and holding for future urological procedures in the future given increased risk of UTI on this medication. - Continue Lantus 10 units BID - Sliding scale insulin -> blood sugar 151 today (6) GERD (gastroesophageal reflux disease): Plan: No acute needs (7) Acute kidney failure: Plan: Acute kidney failure, resolved Patient with sepsis and acute pyelonephritis presented with creatinine of 1.68 which down trended (8) Hyponatremia: Plan: Hyponatremia, resolved Patient with sepsis and hypotension on admission had Na of 133 which up trended and normalized Plan: lovenox- DVT Admission and Anticipated Discharge Date Admission Date: January 12, 2021 Subjective Patient seen at bedside, no acute distress. He reports he feels well, and wants to be discharged although is aware that he is awaiting home health services set up for his antibiotics. He denies fever, chills, sweats, nausea, vomiting, diarrhea, headache, abdominal pain, chest pain, chest pressure, shortness of breath, difficulty breathing, overnight. No questions or concerns at time of bedside assessment. Review of Systems Review of Systems: 10 point review systems negative except as previously noted and as documented in subjective Physical Exam Physical Exam: General: A&Ox3. NAD. Cooperative. HEENT: Atraumatic, normocephalic. Visual acuity and hearing grossly intact Pulm: CTAB A&P. -wheezes, -rales, -rhonchi. Symmetrical chest rise. No increase work of breathing. No respiratory distress. Cardiac: RRR, -mrg. Radial pulses intact and symmetrical. Abdominal: Nontender, nondistended, soft. BS present. Results & Data Results & Data ([facility]) Vital Signs (Past 12 Hours) Vital Signs Temp Pulse Resp BP Pulse Ox 01/22/21 08:12 36.9 C 85 18 114/65 96 PG Care Time/CCT Total # of Minutes Spent Total Time Spent with Patient: Total time spent is greater than 50% in coordination of care (as documented) at patient's floor/unit and/or counseling patient: Coding Level of Care Code 83598 Subseq Hosp Care Lvl 1 Diagnoses Pyelonephritis of left kidney N12 Sepsis A41.9 Sepsis associated hypotension A41.9; I95.9 S/P ureteral stent placement Z96.0 Type 2 diabetes mellitus E11.9 GERD (gastroesophageal reflux disease) K21.9 Acute kidney failure N17.9 Hyponatremia E87.1
[2021-01-22] MEDS: TAMSULOSIN HCL 0.4 MG CAP PO SCH (21:06)
[2021-01-22] MEDS: ENOXAPARIN INJ 40 MG/0.4 ML SYR SQ SCH (21:07)
[2021-01-22] MEDS ORDERED: COUGH DROP (SUGAR FREE) LOZ 24 LOZ/1 BOX BUCCAL ONE (22:01)
[2021-01-22 22:51] LABS: Component 2 DNR; Source BLADDER STONE
[2021-01-23] MEDS: AMPICILLIN 2,000 MG in SODIUM CHLOR 0.9% AD-VAN 100 ML IV SCH ×6 (01:06→21:17)
[2021-01-23] MEDS: cefTRIAXone SODIUM 2,000 MG in DEXTROSE 5% 50 ML IV SCH ×2 (01:43→15:04)
[2021-01-23] MEDS: INSULIN GLARGINE SOLOSTAR 100 UNITS/ML 3 ML PEN SC SCH ×2 (09:12→21:17)
[2021-01-23] MEDS: INSULIN ASPART 100 UNITS/ML 3 ML PEN SC SCH ×4 (09:13→21:17)
--- NOTE | 2021-01-23 17:36 | Hospitalist Progress Note ---
Date of Service January 23, 2021 Assessment & Plan (1) Pyelonephritis of left kidney: Plan: Left CVA tenderness, despite UA relatively unremarkable. No prostate tenderness on exam. S/p left ureteroscopy for stone treatment on 01/06/2021. - Urine cx grew Enterococcus faecalis -> Amp sensitive. - Repeat blood cultures on 01/14 with continue E. faecalis. Repeats on 01/15 with no growth so far. - TTE on 01/15 with no valvular issues. TAMMY negative on 01/19 - Switched to ampicillin from vanc/Zosyn on 01/14. Added ceftriaxone for synergy on 01/15 as he had continued fevers and new positive blood cultures. -> ID consulted. Given prolonged fevers and multiple blood cultures, may need longer course of IV abx. Stent removed 01/20, uncomplicated removal. Will require 14 days of antibiotic treatment, ultrasound-guided peripheral line in place.First negative surveillance cultures 01/15, 14-day course of IV antibiotics will be complete on 01/28 Awaiting home health set up for home antibiotics. patient has been receiving IV ampicillin every 4 here, anticipate continuous infusion with a CADD pump with once a day hookup on discharge with continuous infusion through CADD pump. Surveillance cultures ng TAMMY 01/19 negative for vegetation -01/23: Patient remains clinically well, no clinical change. Disposition pending arrangement of infusion pump as noted above. (2) Sepsis: Plan: Sepsis due to Enterococcus (pyelonephritis). - Resolved. (3) Sepsis associated hypotension: Plan: As above, resolved with IV fluid resuscitation - As above (4) S/P ureteral stent placement: Plan: Per urology stent remaining in place, anticipate removal (5) Type 2 diabetes mellitus: Plan: A1c was 7.9% this month. - Hold Farxiga, recommend continuing to hold until UTI resolved and holding for future urological procedures in the future given increased risk of UTI on this medication. - Continue Lantus 10 units BID - Sliding scale insulin -> blood sugar 151 today (6) GERD (gastroesophageal reflux disease): Plan: No acute needs (7) Acute kidney failure: Plan: Acute kidney failure, resolved Patient with sepsis and acute pyelonephritis presented with creatinine of 1.68 which down trended (8) Hyponatremia: Plan: Hyponatremia, resolved Patient with sepsis and hypotension on admission had Na of 133 which up trended and normalized Plan: lovenox- DVT Admission and Anticipated Discharge Date Admission Date: January 12, 2021 Subjective Patient is seen at bedside. He reports he feels well. Per patient he thought he was able to leave the hospital because he was told he was medically stable and just awaiting home health options to be arranged, discussed that patient is not allowed to leave the hospital at this time and anticipate home health needs will be set up with case management hopefully tomorrow. He is otherwise doing well, no fever/chills/sweats, no difficulty urinating, no abdominal pain, eating and drinking well. No questions or concerns at time of visit. Review of Systems Review of Systems: 10 point review systems negative except as previously noted and as documented in subjective Physical Exam Physical Exam: General: A&Ox3. NAD. Cooperative. HEENT: Atraumatic, normocephalic. Visual acuity and hearing grossly intact Pulm: CTAB A&P. -wheezes, -rales, -rhonchi. Symmetrical chest rise. No increase work of breathing. No respiratory distress. Cardiac: RRR, -mrg. Radial pulses intact and symmetrical. Abdominal: Nontender, nondistended, soft. BS present. Results & Data Results & Data ([facility]) Vital Signs (Past 12 Hours) Vital Signs Temp Pulse Resp BP Pulse Ox 01/23/21 16:53 37.6 C H 82 18 113/69 97 01/23/21 07:38 37.3 C 70 18 112/62 97 PG Care Time/CCT Total # of Minutes Spent Total Time Spent with Patient: Total time spent is greater than 50% in coordination of care (as documented) at patient's floor/unit and/or counseling patient: Coding Level of Care Code 43559 Subseq Hosp Care Lvl 1 Diagnoses Pyelonephritis of left kidney N12 Sepsis A41.9 Sepsis associated hypotension A41.9; I95.9 S/P ureteral stent placement Z96.0 Type 2 diabetes mellitus E11.9 GERD (gastroesophageal reflux disease) K21.9 Acute kidney failure N17.9 Hyponatremia E87.1
[2021-01-23] MEDS: ENOXAPARIN INJ 40 MG/0.4 ML SYR SQ SCH (21:16)
[2021-01-23] MEDS: TAMSULOSIN HCL 0.4 MG CAP PO SCH (21:17)
[2021-01-23] MEDS: BENZONATATE 100 MG CAPSULE PO PRN (22:06)
[2021-01-24] MEDS: AMPICILLIN 2,000 MG in SODIUM CHLOR 0.9% AD-VAN 100 ML IV SCH ×6 (02:02→21:08)
[2021-01-24] MEDS: cefTRIAXone SODIUM 2,000 MG in DEXTROSE 5% 50 ML IV SCH ×2 (02:33→15:55)
[2021-01-24] MEDS: INSULIN ASPART 100 UNITS/ML 3 ML PEN SC SCH ×4 (08:51→21:12)
[2021-01-24] MEDS: INSULIN GLARGINE SOLOSTAR 100 UNITS/ML 3 ML PEN SC SCH ×2 (08:52→21:11)
--- NOTE | 2021-01-24 13:00 | Hospitalist Progress Note ---
Date of Service January 24, 2021 Assessment & Plan (1) Pyelonephritis of left kidney: Plan: Left CVA tenderness, despite UA relatively unremarkable. No prostate tenderness on exam. S/p left ureteroscopy for stone treatment on 01/06/2021. - Urine cx grew Enterococcus faecalis -> Amp sensitive. - Repeat blood cultures on 01/14 with continue E. faecalis. Repeats on 01/15 with no growth so far. - TTE on 01/15 with no valvular issues. TAMMY negative on 01/19 - Switched to ampicillin from vanc/Zosyn on 01/14. Added ceftriaxone for synergy on 01/15 as he had continued fevers and new positive blood cultures. -> ID consulted. Given prolonged fevers and multiple blood cultures, may need longer course of IV abx. Stent removed 01/20, uncomplicated removal. Will require 14 days of antibiotic treatment, ultrasound-guided peripheral line in place.First negative surveillance cultures 01/15, 14-day course of IV antibiotics will be complete on 01/28 Awaiting home health set up for home antibiotics. patient has been receiving IV ampicillin every 4 here, anticipate continuous infusion with a CADD pump with once a day hookup on discharge with continuous infusion through CADD pump. Discussed with case management, anticipate will be able to be set up for discharge tomorrow with infusion pump available and additional home health follow-up on Sunday. Surveillance cultures ng TAMMY 01/19 negative for vegetation -01/23: Patient remains clinically well, no clinical change. Disposition pending arrangement of infusion pump as noted above. (2) Sepsis: Plan: Sepsis due to Enterococcus (pyelonephritis). - Resolved. (3) Sepsis associated hypotension: Plan: As above, resolved with IV fluid resuscitation - As above (4) S/P ureteral stent placement: Plan: Per urology stent remaining in place, anticipate removal (5) Type 2 diabetes mellitus: Plan: A1c was 7.9% this month. - Hold Farxiga, recommend continuing to hold until UTI resolved and holding for future urological procedures in the future given increased risk of UTI on this medication. - Continue Lantus 10 units BID - Sliding scale insulin -> blood sugar 151 today (6) GERD (gastroesophageal reflux disease): Plan: No acute needs (7) Acute kidney failure: Plan: Acute kidney failure, resolved Patient with sepsis and acute pyelonephritis presented with creatinine of 1.68 which down trended (8) Hyponatremia: Plan: Hyponatremia, resolved Patient with sepsis and hypotension on admission had Na of 133 which up trended and normalized Plan: lovenox- DVT Admission and Anticipated Discharge Date Admission Date: January 12, 2021 Subjective Seen at bedside, no clinical change. No fever/chills/sweats. No diarrhea/constipation. Overall feels the same as before, eager to have infusion set up so he can go home. No other questions or concerns at time of visit Review of Systems Review of Systems: 10 point review systems negative except as previously noted and as documented in subjective Physical Exam Physical Exam: General: A&Ox3. NAD. Cooperative. HEENT: Atraumatic, normocephalic. Visual acuity and hearing grossly intact Pulm: CTAB A&P. -wheezes, -rales, -rhonchi. Symmetrical chest rise. No increase work of breathing. No respiratory distress. Cardiac: RRR, -mrg. Radial pulses intact and symmetrical. Abdominal: Nontender, nondistended, soft. BS present. PG Care Time/CCT Total # of Minutes Spent Total Time Spent with Patient: Total time spent is greater than 50% in coordination of care (as documented) at patient's floor/unit and/or counseling patient: Coding Level of Care Code 47356 Subseq Hosp Care Lvl 1 Diagnoses Pyelonephritis of left kidney N12 Sepsis A41.9 Sepsis associated hypotension A41.9; I95.9 S/P ureteral stent placement Z96.0 Type 2 diabetes mellitus E11.9 GERD (gastroesophageal reflux disease) K21.9 Acute kidney failure N17.9 Hyponatremia E87.1
[2021-01-24] MEDS: ENOXAPARIN INJ 40 MG/0.4 ML SYR SQ SCH (21:10)
[2021-01-24] MEDS: TAMSULOSIN HCL 0.4 MG CAP PO SCH (21:10)
[2021-01-25] MEDS: AMPICILLIN 2,000 MG in SODIUM CHLOR 0.9% AD-VAN 100 ML IV SCH ×3 (01:28→09:42)
[2021-01-25] MEDS: cefTRIAXone SODIUM 2,000 MG in DEXTROSE 5% 50 ML IV SCH (02:01)
--- NOTE | 2021-01-25 07:46 | Discharge Summary ---
Date of Service January 25, 2021 Admission HPI Per Admitting Provider Christopher Barba is a 55 year old male who presents to the ER with fever and chills. He recently underwent laser lithotripsy for non-infected ureterolithiasis 6 days previously. Initial intervention for stones on December 19 with left ureteral stent insertion due to intractable renal colic pain however urine culture was negative at that time and he was not discharged with antibiotics. He reports after lithotripsy he starting to have shakes and feeling generally unwell. However yesterday he became much worse with fevers, chills, nausea, vomiting with maximum fever measured of 103 degrees Fahrenheit. He reports left flank/abdominal pain an intermittent sharp left testicular pain. He reports he was supposed to have his ureteral stent removed today and was to take Bactrim prior to the procedure but otherwise he hasn't been on antibiotics. He was seen by his PCP earlier today and took a urine sample and given ceftriaxone IM in the office but on discussion with urology it was recommended he comes to the ER for evaluation. He has continued to take Farxiga throughout and was not told to stop this however didn't take any of his regular medications this morning. In the ER he was markedly hypotensive with resolved with IV fluid resuscitation. WBC elevated at 16.86 and he was given Zosyn for antibiotic coverage for sepsis with presumed source of urine. He was referred to medicine for admission and ongoing management of sepsis. Admission Exam Per Admitting Provider Constitutional: WD/WN, vitals as above + ill appearing Eyes: + anicteric sclerae; normal pupil size ENMT: Mouth: + dry oral mucous membranes Neck: trachea midline, no thyromegaly Respiratory: normal respiratory effort, lungs clear to auscultation Cardiovascular: RRR, no murmur, no edema Gastrointestinal (Abdomen): Inspection/Auscultation: normal bowel sounds Percussion/Palpation: + abdomen tender (left sided) and abdomen soft; no gu arding and abdomen not rigid Musculoskeletal: no cyanosis or clubbing, extremities motor strength 5/5 Skin: no rashes, warm and dry Neurologic: moves all extremities and awake; not confused Psychiatric: A+Ox3, euthymic affect Genitourinary: + CVA tenderness (left); no testes abnor mality (no pain on palpation of epidydimis), no testicular mass and no prostate abnormality (non tender) Principal Diagnosis Pyelonephritis Discharge Exam General: A&Ox3. NAD. Cooperative. HEENT: Atraumatic, normocephalic. Visual acuity and hearing grossly intact Pulm: CTAB A&P. -wheezes, -rales, -rhonchi. Symmetrical chest rise. No increase work of breathing. No respiratory distress. Cardiac: RRR, -mrg. Radial pulses intact and symmetrical. Abdominal: Nontender, nondistended, soft. BS present. Discharge Data Allergies Allergy/AdvReac Type Severity Reaction Status Date / Time atorvastatin [From Lipitor] AdvReac Intermediate leg Verified 01/12/21 15:52 cramping Influenza Virus Vaccines AdvReac Intermediate Vomiting Verified 01/12/21 17:35 rosuvastatin [From Crestor] AdvReac Intermediate leg Verified 01/12/21 15:52 cramping Consultations 01/12/21 16:43 ED Decision to Admit Stat 01/12/21 17:09 Consult Urology Routine 01/15/21 14:42 Consult Infectious Diseases Routine Procedures Performed Operation Date: 01/19/21 14:00 Actual Procedures p Transesophageal Echo - Tenzin Antony MD Ordered Studies 01/12/21 15:35 CT abd pelvis wo con Stat 01/19/21 14:51 US guide vascular access Urgent Hospital Course (1) Pyelonephritis of left kidney: Christopher a 55-year-old male with history of diabetes on who presented with sepsis/bacteremia and UTI. Had a urologic stent removal uncomplicated. Due to Enterococcus bacteremia patient has been discharged to complete 2 weeks of IV antibiotics. To do as outpatient: 1. Complete 14-day course of IV antibiotics with ampicillin 2 g every 4 hours via CADD continuous infusion pump 2. Repeat CBC/BMP within 1 week to be performed by outpatient provider 3. Routine follow-up with PCP within 1 week and for blood work above 4. Outpatient follow-up with urology 5. Consider switching [facility] as patient with high risk and complicated UTI and subsequent bacteremia Left CVA tenderness, despite UA relatively unremarkable. No prostate tenderness on exam. S/p left ureteroscopy for stone treatment on 01/06/2021. - Urine cx grew Enterococcus faecalis -> Amp sensitive. - Repeat blood cultures on 01/14 with continue E. faecalis. Repeats on 01/15 with no growth so far. - TTE on 01/15 with no valvular issues. TAMMY negative on 01/19 - Switched to ampicillin from vanc/Zosyn on 01/14. Added ceftriaxone for synergy on 01/15 as he had continued fevers and new positive blood cultures. Stent removed 01/20, uncomplicated removal. Will require 14 days of antibiotic treatment, ultrasound-guided peripheral line in place.First negative surveillance cultures 01/15, 14-day course of IV antibiotics will be complete on 01/28 Discharged with CADD continuous infusion pump to deliver ampicillin as above, home health to visit patient day after discharge Surveillance cultures ng TAMMY 01/19 negative for vegetation (2) Sepsis: Sepsis due to Enterococcus (pyelonephritis). - Resolved. (3) Sepsis associated hypotension: As above, resolved with IV fluid resuscitation - As above (4) S/P ureteral stent placement: Per urology stent remaining in place, anticipate removal (5) Type 2 diabetes mellitus: A1c was 7.9% this month. - Hold Farxiga, recommend continuing to hold until UTI resolved and holding for future urological procedures in the future given increased risk of UTI on this medication. - Continue Lantus 10 units BID - Sliding scale insulin -> blood sugar 151 today (6) GERD (gastroesophageal reflux disease): No acute needs (7) Acute kidney failure: Acute kidney failure, resolved Patient with sepsis and acute pyelonephritis presented with creatinine of 1.68 which down trended (8) Hyponatremia: Hyponatremia, resolved Patient with sepsis and hypotension on admission had Na of 133 which up trended and normalized lovenox- DVT prophylaxis during admission, no signs of DVT Total Time Total Time Spent Total Time Spent (In Minutes): 35 minutes including documentation, review of labs and images, coordination of care, direct patient care Discharge Plan Discharge Items Patient Disposition: Home - Home Health Services Reason For Visit: UTI SEPSIS Discharge Diagnosis: Pyelonephritis of the L Kidney Bacteremia Condition on Discharge: Good Activity: Resume your previous activity Non-emergency contact: Primary Care Provider Call non-emergency contact if: you have any medication questions, your symptoms worsen, your pain is not controlled, your pain is worsening and you have a fever Follow-up/Referrals: Jose Carlin M.D. [Primary Care Provider] - 02/04/21 8:30 am Diet: Carb Consistent or DM2 Addtl Attending Provider Instructions: You were seen in the hospital for an infection of her left kidney pyelonephritis. A stent was placed and subsequently removed. You were treated with a course of antibiotics and clinically improved. Due to your bacteremia and positive blood cultures you will require a course of antibiotics of 14 past the first day your blood cultures cleared (were negative). You have been prescribed antibiotics as noted below. You will have blood work as below. You have been prescribed an antibiotic, ampicillin. Please take ampicillin 2,000mg every 4 hours daily VIA a CADD continuous infusion pump and home health services. THis was arranged by case management and you were scheduled to have them visit you at home in the early afternoon day of discharge. Your treatment course will be complete on 01/28/21. You will require additional blood work. Please have a CBC/BMP (complete blood count and basic metabolic panel) drawn by your primary care physician within one week at your followup appointment. You symptoms resolved by time of discharge, and your blood cultures remained clear. You have had your diabetes medications resumed on discharge; however, Farxiga will continue to put you at increased risk of UTIs. Due to the severity of your infection, please discuss potentially switching to an alternative diabetes medication and/or increasing metformin with your PCP at your followup appointment. A followup appointment is being scheduled for you with your PCP. You should be seen seen within 1 week. You should receive a call to confirm this appointment. If you do not receive a call within 48 hours to confirm this appointment, or need to change this appointment, please call the provider's office at [phone]. If you develop any new or worsening symptoms including fever, chills, sweats, chest pain, chest pressure, difficulty breathing, uncontrolled nausea/vomiting, rash, wheezing, passing out or nearly passing out, bleeding, black/bloody bowel movements, or other new or concerning symptoms please call your primary care physician at , or call [phone] for re-evaluation in the emergency department if you are very concerned. Pending Studies at Discharge: Yes (repeat CBC/CMP with PCP) Stand-Alone Forms: My [employer], Smoking Cessation Medications and DC Order Prescriptions: New ampicillin sodium 2 gram recon soln 2 g IV Q4H 3 Days Qty: 18 RF: 0 Continued Trulicity 1.5 mg/0.5 mL pen injector 3 mg subcut WK RF: 0 tamsulosin 0.4 mg capsule 0.4 mg PO HS Qty: 30 RF: 1 phenazopyridine [Pyridium] 200 mg tablet 200 mg PO TID PRN (Reason: pain) Qty: 10 RF: 0 ibuprofen 200 mg Tablet 400 mg PO Q6H PRN (Reason: Pain) RF: 0 Farxiga 10 mg tablet 10 mg PO QAM RF: 0 hydrocodone-acetaminophen 5-325 mg tablet 1 tab PO BID PRN (Reason: Pain) Qty: 20 RF: 0 acetaminophen [Tylenol] 325 mg Tablet 650 mg PO Q6H PRN (Reason: Pain) RF: 0 metformin 500 mg Tablet 500 mg PO BID RF: 0 Discharge Orders: Discharge Order (Routine); Ordered 01/25/21 Ordered By: Paresh Manzano/Other Patient Handouts: Discharge Instructions ... Admission Data Admit Date/Time: 01/12/21 17:12 Attending Provider: Paresh Overton Admit Provider: Kahlil Estevez Primary Care Provider: Jose Carlin Other Providers: Donald English ; Kahlil Estevez ; Norman Ceballos ; Josh Freeman ; Susie Khan ; Yusuf Wei I. ; Madhu Egan II ; Eleanor Pederson ; Russel Del Real ; John Solis ; [facility] ; [facility] Other Interventions: Discharge Summary Assessment (RN) Last Done: 01/25/21 11:48 Coding Level of Care Code D/C DAY MANAGEMENT >30 MINS Diagnoses Pyelonephritis of left kidney N12 Sepsis A41.9 Sepsis associated hypotension A41.9; I95.9 S/P ureteral stent placement Z96.0 Type 2 diabetes mellitus E11.9 GERD (gastroesophageal reflux disease) K21.9 Acute kidney failure N17.9 Hyponatremia E87.1
[2021-01-25 07:52] VITALS: BP 112/73; PULSE 71; TEMP 98.8; O2SAT 95
[2021-01-25] MEDS: INSULIN ASPART 100 UNITS/ML 3 ML PEN SC SCH (09:49)
[2021-01-25] MEDS: INSULIN GLARGINE SOLOSTAR 100 UNITS/ML 3 ML PEN SC SCH (09:59)
== END 2021-01-25 13:43 | disposition home health service (06) | DRG 872 ==
LOC: ED 12:39 → EDINP 17:12 → SUATTDRO 17:12 → EDINP 23:08 → 2N 01-13 11:12 → 3W 01-16 01:00